=== PATIENT | male | born 1970 | race Caucasian/White ===

== ENCOUNTER 2023-08-18 09:57 | Outpatient (AMB) | payer OTHER, SELFPAY ==
--- NOTE | 2023-08-18 10:10 | MHC.PC.OV ---
Vital Signs 08/18/23 10:13 Height 6 ft Weight 175 lb BMI 23.7 BP 132/69 Blood Pressure Location Rt brachial Position Sitting Respiration 13 Pulse 70 Pulse Source Pulse Oximeter Temp 97.7 F Temp Source Temporal Artery Scan Pulse Oximetry (%) 95 Oxygen Delivery Method Room Air Intake Visit Reasons: est care /[facility] dscharge Intake Note: Patient is here to establish care with the practice. Patient is accompanied by his friend/caregiver Roberta. Yeager reports patient was in the hospital from 07/10/23-08/02/23 for pulmonary edema, viral cardiomyopathy, and type 2 insulin dependant diabetes. Patient states he has a paralyzed vocal cord. Community Leader Required: No Accompanied by: Friend Allergies naproxen Allergy (Severe, Verified 08/18/23 11:17) Hives Medication List - Last Reconciled 08/18/23 by Lizeth Sainz, ELDERLY SITTER- ammonium lactate 12% 1 appl topical BID aspirin 81 mg PO DAILY carvedilol 12.5 mg PO DAILY famotidine (Pepcid) 20 mg PO BEDTIME hydralazine 25 mg PO TID insulin glargine (Lantus Solostar U-100 Insulin) 14 units (0.14 mL) subcut QPM insulin lispro Before meal times administer according to this scale based on your blood glucose. Glucose 70-150: 0 unit. 151-200: 2 units. 201-250: 4 units. 251-300: 6 units. 301-350: 8 units. 351-400: 10 units. >400: 12 units and call doctor. isosorbide mononitrate ER 30 mg PO DAILY lancets (FreeStyle Lancets) As directed pen needle, diabetic (BD Ultra-Fine Mini Pen Needle) As directed rosuvastatin 10 mg PO DAILY torsemide 20 mg PO DAILY Tobacco use date assessed: 08/18/23 HPI HPI Comments History of Present Illness Details 53-year-old male with MDD, SMITH, CHF, pneumothorax status post chest tube with lung collapse, vocal cord paralysis, PVD with ulceration bilateral lower extremities, diabetes type 2 with complication, peripheral nueropathy Here today for hospital discharge follow up. He was found to have combined systolic and diastolic heart failure. He was started on torsemide daily, hydralazine 3 times per day, Imdur & Coreg. Unfortunately he is a new patient to this practice. I do not have any records on him to include hospital discharge paperwork. These records were requested several times from S[facility] not received. The information that I am using today for this visit is provided by the patient on his discharge summary. Admitted - 08/02/23. Discharge home with visiting nurse services. However the visiting nurse services did not start as they do not accept his insurance. He needs a new referral placed for fci to help manage his new chronic conditions, to provide education, med management and wound care. The discharge paperwork that he presents to me today recommends a follow up with ENT for the vocal cord paralysis. Referral was placed today. He also needs a referral placed to Cardiology. His caregiver who was present with him today reports that he has an appointment with [facility] some time during the week of 09/05/2023. Patient is not weighing himself daily. He is Watching what he eats & monitoring his salt intake. He is complaining of a pocket of gas that occurs from time to time. He is treating this with Gas-X. He did have constipation while in the hospital however he reports that this is resolved. Wants something for PN pain. PFSH Medical History (Updated 08/18/23 @ 16:27 by PANCHO Tapia) Pneumothorax Surgical History (Updated 08/18/23 @ 10:32 by Palma Gustafson [facility]) [place] teeth extracted Social History (Updated 08/18/23 @ 10:42 by Palma Gustafson CMA) Household Members: Friend(s) Housing: House Are you a primary health careers instructor to a significant other at home: No Do you presently have visiting nurse or other home services: No 75 years or older and lives alone: No Alcohol intake: never Patient Tobacco Use Status: Never used Tobacco e-Cigarette/Vaping Use: Never Used service: No Current occupational status: unemployed Current occupational exposures/hazards: No Gender identity: Male Cognitive needs: No Hearing needs: No Vision needs: Yes Questionnaire PHQ-9 Over the last 2 weeks, how often have you been bothered by any of the following problems? 1. Little interest or pleasure in doing things: more than half the days 2. Feeling down, depressed, or hopeless: more than half the days 3. Trouble falling or staying asleep, or sleeping too much: nearly every day 4. Feeling tired or having little energy: nearly every day 5. Poor appetite or overeating: not at all 6. Feeling bad about yourself - or that you are a failure or have let yourself or your family down: several days 7. Trouble concentrating on things, such as reading the newspaper or watching television: not at all 8. Moving or speaking so slowly that other people could have noticed. Or the opposite - being so fidgety or restless that you have been moving around a lot more than usual: not at all 9. Thoughts that you would be better off or of hurting yourself in some way: not at all Total score: 11 Depression Screening Interpretation: Negative Depression Screening Done: Yes 34991 - PHQ-9 Billing: Yes Source: Developed by Drs. Herve Villagomez, Jillian Camargo, Geo Koroma and colleagues, with an educational nicole from [employer]. Thrive Questionnaire Date Thrive assessed: 08/18/23 I am a: Patient What is your living situation today?: I have a steady place to live Within the past 12 months, did the food you bought not last and you didn't have the money to get more?: Never true Within the past 12 months, did you worry whether your food would run out before you got money to buy more?: Never true Do you have trouble paying for medicines?: Yes Do you have trouble getting transportation to medical appointments?: No Do you have trouble paying your heating and electricity bill?: No Do you have trouble taking care of your child, family member or friend?: No Do you have trouble with day-to-day activities such as bathing, preparing meals, shopping, managing finances, etc.?: Yes Are you currently unemployed and looking for a job?: Yes Are you interested in more education?: No Please select the resources that you would like help with: Food Currently or been in a relationship where the following occur: no concerns reported THRIVE Score: 0 AUDIT C Alcohol Use Questionnaire (AUDIT-C) 1. How often do you have a drink containing alcohol?: Never 3. How often do you have six or more drinks on one occasion?: Never Total Score: 0 Score Reviewed/Action Taken: Yes SMITH-7 AMB Questionnaire SMITH-7 Date SMITH - 7 assessed: 08/18/23 Feeling nervous, anxious, or on edge: 2 = More than half the days Not being able to stop or control worryin = More than half the days Worrying too much about different things: 2 = More than half the days Trouble relaxin = Nearly every day Being so restless that it is hard to sit still: 1 = Several days Becoming easily annoyed or irritable: 1 = Several days Feeling afraid as if something awful might happen: 1 = Several days Total SMITH-7 score (0-4 normal; 5-9 mild; 10-14 moderate; 15-21 severe): 12 Source: Developed by Drs. Herve Villagomez, Jillian Camargo, Geo Koroma and colleagues, with an educational nicole from [employer]. SMITH-7 Assessment Billing SMITH-7 Assessment Tool: SMITH-7 Assessment 19827 Review of Systems Const All systems reviewed & are unremarkable except as noted in HPI and below Physical exam (Primary Care) Vital Signs: Last Vital Signs Temp 97.7 F 08/18/23 10:13 Pulse 70 08/18/23 10:13 Resp 13 08/18/23 10:13 BP 132/69 08/18/23 10:13 Pulse Ox 95 08/18/23 10:13 Oxygen Delivery Method Room Air 08/18/23 10:13 BMI result Body Mass Index 23.7 Tobacco/Smoking Status: Tobacco use Status Tobacco use date assessed 08/18/23 08/18/23 10:34 Patient Tobacco Use Status Never used Tobacco 08/18/23 10:42 e-Cigarette/Vaping Use Never Used 08/18/23 10:42 PHQ-9: PHQ-9 Score PHQ-9: Total score 11 08/18/23 15:29 Depression Screening Interpretation: Negative Thrive Assessment: Date of Thrive Assessment Date Thrive assessed 08/18/23 08/18/23 10:41 Currently or been in a relationship where the following occur: no concerns reported Advance Care Planning discussion: Exists, not on file Date of discussion: 08/18/23 Who was present: pt and sig other Forms completed: Health Care Proxy and MOLST Time spent: 1-15 minutes, not on file Actual minutes spent: 5 Const Other: awake alert, chronically ill appearing speaking in whispered voice RRR, 2/6 systolic murmur LS dim BLL otherwise clear throughout BLE hairless, unable to palpate pedal pulses, chronic vascular discoloration, dry flaking crusted skin, worse between toes on left. Open vascular ulcer, limited to skin breakdown on top of bilat feet w/o signs of infection Assessment and Plan Assessment & Plan (1) Hospital discharge follow-up: Comment: incredibly complex patient, with limited medical records I addressed what info I had available to me today to include needed referrals, med refills and recheck of labs I would like for him to return to the office next week for a close f/u. I have asked his HCP to get me the d/c summary from the hospital as our attempts have not been successful. Code(s): Z09 - Encounter for follow-up examination after completed treatment for conditions other than malignant neoplasm (2) Paralyzed vocal cords: Comment: referred to ENT Code(s): J38.00 - Paralysis of vocal cords and larynx, unspecified (3) CHF (congestive heart failure): Comment: euvolemic on exam on BB, Isosorbide & torsemide Referred to Cards. Appt August 2023 Weigh self daily, report gain of 3lbs/day or 5lb/week Limit Na+ intake Code(s): I50.9 - Heart failure, unspecified Qualifiers: Heart failure type: combined systolic and diastolic Heart failure chronicity: chronic Qualified Code(s): I50.42 - Chronic combined systolic (congestive) and diastolic (congestive) heart failure (4) Diabetes mellitus type 2 with complications: Comment: Does not want Endo referral at this time Will check labs, to include HgA1c and bring him back for f/u At this time, advised to cont ADA diet, ISS and Lantus. Code(s): E11.8 - Type 2 diabetes mellitus with unspecified complications (5) Encounter for screening involving social determinants of health (SDoH): Comment: + thrive, refer to NN for asst. Code(s): Z13.9 - Encounter for screening, unspecified (6) Secondary hyperaldosteronism: Comment: excessive activation of the ezlqo-ggebhcincnr-fdxablwibto system (RAAS), related to CHF On torsemide for volume control Code(s): E26.1 - Secondary hyperaldosteronism (7) Atherosclerotic PVD with ulceration: Comment: vna referral placed to help w/ dressings Start Lachydrin, apply to intact skin twice per day Cont statin and ASA Monitor skin integrity FF'd by Cards Code(s): I70.209 - Unspecified atherosclerosis of [place] arteries of extremities, unspecified extremity; L98.499 - Non-pressure chronic ulcer of skin of other sites with unspecified severity Qualifiers: Peripheral atherosclerosis location: lower extremity Peripheral atherosclerosis artery type: [place] artery Laterality: bilateral Lower extremity ulceration location: midfoot Qualified Code(s): I70.234 - Atherosclerosis of [place] arteries of right leg with ulceration of heel and midfoot; I70.244 - Atherosclerosis of [place] arteries of left leg with ulceration of heel and midfoot (8) Lipoma of torso: Comment: made aware this was a low priority item at this time. He may benefit from gen Surg referral in the future however this is not a pressing issue at current time. Code(s): D17.1 - Benign lipomatous neoplasm of skin and subcutaneous tissue of trunk (9) Diabetic peripheral neuropathy: Comment: START Gabapentin 100mg po BID, this was renally dosed based on CrCl 42 Code(s): E11.42 - Type 2 diabetes mellitus with diabetic polyneuropathy (10) GERD without esophagitis: Comment: trial pepcid at HS; ok to cont prn Gas-X If no effect, please let PCP know Code(s): K21.9 - Gastro-esophageal reflux disease without esophagitis Orders: Orders Comprehensive Met. Panel Today E11.8 - Type 2 diabetes mellitus with unspecified complications LDL Cholesterol Direct Today E11.8 - Type 2 diabetes mellitus with unspecified complications, I50.9 - Heart failure, unspecified Hemoglobin A1c Today E11.8 - Type 2 diabetes mellitus with unspecified complications Microalbumin, Random (w Creat) Today E11.8 - Type 2 diabetes mellitus with unspecified complications Complete Blood Count no Diff Today E11.8 - Type 2 diabetes mellitus with unspecified complications Vitamin B12 and Folate Today E11.8 - Type 2 diabetes mellitus with unspecified complications IRON PROFILE Today I50.9 - Heart failure, unspecified, S81.809A - Unspecified open wound, unspecified lower leg, initial encounter Referrals Ear/Nose/Throat Referral J38.00 - Paralysis of vocal cords and larynx, unspecified Cardiology Referral I50.9 - Heart failure, unspecified [facility] Nurse Association/Hospice Referral S81.809A - Unspecified open wound, unspecified lower leg, initial encounter Nurse Navigator Referral Z13.9 - Encounter for screening, unspecified Medications: New famotidine (Pepcid) 20 mg PO BEDTIME 90 tabs 0RF ammonium lactate 12% apply to bilat lower ext BID, avoid open areas 1 appl topical BID 400 grams 5RF insulin glargine (Lantus Solostar U-100 Insulin) 14 units (0.14 mL) subcut QPM 90 days 12.6 mL 0RF E11.8 - Type 2 diabetes mellitus with unspecified complications gabapentin 100 mg PO BID 60 caps 0RF Coding Level of Care Code New Pt Level 5 (04485) Diagnoses Hospital discharge follow-up Z09 Paralyzed vocal cords J38.00 Chronic combined systolic and diastolic congestive heart failure I50.42 Heart failure type: combined systolic and diastolic Heart failure chronicity: chronic Diabetes mellitus type 2 with complications E11.8 Encounter for screening involving social determinants of health (SDoH) Z13.9 Secondary hyperaldosteronism E26.1 Atherosclerosis of [place] artery of both lower extremities with bilateral ulceration of midfeet I70.234; I70.244 Peripheral atherosclerosis location: lower extremity Peripheral atherosclerosis artery type: [place] artery Laterality: bilateral Lower extremity ulceration location: midfoot Lipoma of torso D17.1 Diabetic peripheral neuropathy E11.42 GERD without esophagitis K21.9 Additional Codes SMITH-7 Assessment Billing - SMITH-7 Assessment Tool: SMITH-7 Assessment 69065 ([id number]) Vital Signs *Quality* - Advance Care Planning discussion: Exists, not on file ([id number]) Vital Signs *Quality* - Time spent: 1-15 minutes, not on file ([id number])
[2023-08-18 10:13] VITALS: BP 132/69; PULSE 70; RESP 13; TEMP 36.5; O2SAT 95; BMI 23.7
== END 2023-08-18 12:20 | disposition home or self-care (01) ==
PROVIDERS: Visit Provider Nurse Practitioner Family
DX: I50.42 Chronic combined systolic (congestive) and diastolic (congestive) heart failure (principal); E11.8 Type 2 diabetes mellitus with unspecified complications; E26.1 Secondary hyperaldosteronism; I70.234 Atherosclerosis of native arteries of right leg with ulceration of heel and midfoot; I70.244 Atherosclerosis of native arteries of left leg with ulceration of heel and midfoot; E11.42 Type 2 diabetes mellitus with diabetic polyneuropathy; Z09 Encounter for follow-up examination after completed treatment for conditions other than malignant neoplasm; Z00.00 Encounter for general adult medical examination without abnormal findings; J38.00 Paralysis of vocal cords and larynx, unspecified; D17.1 Benign lipomatous neoplasm of skin and subcutaneous tissue of trunk; K21.9 Gastro-esophageal reflux disease without esophagitis
CPT/HCPCS: 1124F; 99205

== ENCOUNTER 2023-08-18 11:34 | Outpatient (REF) | payer MEDICAID, SELFPAY ==
[2023-08-18 14:51] LABS: Hematocrit 29.4 % (42.0-52.0); Hemoglobin 9.3 g/dl (14.0-18.0); Mean Corpuscular HGB Conc 31.6 g/dl (31.0-36.0); Mean Corpuscular Hemoglobin 23.5 pg (27.0-33.0); Mean Corpuscular Volume 74.4 fL (80.0-98.0); Platelet Count 273 X10*3/uL (160-400); Red Blood Count 3.95 X10*6/uL (4.60-5.80); Red Cell Distribution Width 16.3 % (11.0-16.0); White Blood Count 6.4 X10*3/uL (4.8-10.8)
[2023-08-18 15:39] LABS: Estimated Average Glucose 229 mg/dL; Hemoglobin A1c % 9.6 % (<6.0)
[2023-08-18 15:41] LABS: Alanine Aminotransferase 27 U/L (0-40); Alkaline Phosphatase 83 U/L (39-117); Anion Gap 10 (12-20); Aspartate Amino Transferase 22 U/L (5-37); Bilirubin Total 0.3 mg/dL (0.0-1.0); Blood Urea Nitrogen 67 mg/dL (9-16); Carbon Dioxide 23 mmol/L (22-29); Chloride 104 mmol/L (96-108); Estimated Glomerular Filt Rate 32; Glucose Random 215 mg/dL (60-115); Potassium 4.4 mmol/L (3.3-5.1); Sodium 133 mmol/L (135-145); Total Protein 6.7 g/dL (6.5-8.0)
[2023-08-18 16:12] LABS: Vitamin B12 545 pg/mL (200-900)
[2023-08-18 17:38] LABS: Creatinine Urine 49.17 mg/dL; Microalbum/Creatinine Ratio Ur 4067.5 ug/mg cr (<30); Microalbumin Urine > 2000.0 mg/L
[2023-08-20 06:24] LABS: LDL Cholesterol Direct 68 mg/dL (<100)
== END 2023-08-18 11:35 | disposition home or self-care (01) ==
LOC: HO.WFDLDS 11:34
PROVIDERS: Visit Provider Nurse Practitioner Family
DX: E11.8 Type 2 diabetes mellitus with unspecified complications (principal); I50.9 Heart failure, unspecified
CPT/HCPCS: 36415; 80053; 82043; 82570; 82607; 82746; 83036; 83721; 85027

== ENCOUNTER 2023-08-25 13:39 | Outpatient (AMB) | payer OTHER, SELFPAY ==
[2023-08-25 13:44] VITALS: BP 132/60; PULSE 72; O2SAT 98; BMI 23.6
--- NOTE | 2023-08-25 13:44 | MHC.PC.OV ---
Vital Signs 08/25/23 13:44 Height 6 ft Weight 174 lb BMI 23.6 BP 132/60 Blood Pressure Location Lt brachial Position Sitting Pulse 72 Pulse Source Pulse Oximeter Pulse Oximetry (%) 98 Oxygen Delivery Method Room Air Intake Visit Reasons: 1 week follow up CHF/uncontrolled DM/HTN Intake Note: Patient is here to follow up on CHF and DM, and HTN. Allergies naproxen Allergy (Severe, Verified 08/25/23 13:49) Hives Medication List - Last Reconciled 08/25/23 by Shmuel Youssef MD ammonium lactate 12% 1 appl topical BID aspirin 81 mg PO DAILY carvedilol 12.5 mg PO DAILY famotidine (Pepcid) 20 mg PO BEDTIME gabapentin 100 mg PO BID hydralazine 25 mg PO TID insulin glargine (Lantus Solostar U-100 Insulin) 14 units (0.14 mL) subcut QPM 90 days insulin lispro 1 sliding scale dose subcut QIDACHS isosorbide mononitrate ER 30 mg PO DAILY lancets (FreeStyle Lancets) As directed pen needle, diabetic (BD Ultra-Fine Mini Pen Needle) As directed rosuvastatin 10 mg PO DAILY torsemide 20 mg PO DAILY Tobacco use date assessed: 08/18/23 Dental Screening Dental Screen Date: 08/25/23 HPI 1 week follow up CHF/uncontrolled DM/HTN HPI Details History of CHF with systolic and diastolic dysfunction, diabetes with neuropathy, atherosclerotic peripheral vascular disease, chronic kidney disease, , paralyzed vocal cords, recent hospitalization for CHF, concomitant pneumothorax and chest tube while admitted. Had been seen by [facility] and no records at that time. Referred to Cardiology and ENT for CHF and vocal cord paralysis respectively. HGB 8.7 08/02/23 then 9.3 08/18/23 Cr 1.9 then 2.19 A1C 08/18/23 was 9.6% They report improving morning blood sugars - A1c had previously been at around 11% in the hospital. [facility] Medical History (Updated 08/25/23 @ 14:41 by Jabari Siddiqui) Gas bloat syndrome Herniated disc, cervical Back disorder Arthritis Cardiomyopathy High blood pressure Edema Pneumothorax Surgical History (Updated 08/18/23 @ 10:32 by Palma Gustafson [facility]) [place] teeth extracted Family History (Updated 08/20/23 @ 09:41 [address] Chanelle Hawkins [facility]) Mother Cancer Father Cancer Social History (Updated 08/20/23 @ 09:59 by Palma Gustafson [facility]) Household Members: Friend(s) Housing: House Are you a primary child care provider to a significant other at home: No Do you presently have visiting nurse or other home services: No 75 years or older and lives alone: No Alcohol intake: never Patient Tobacco Use Status: Never used Tobacco e-Cigarette/Vaping Use: Never Used Use of substances other than those prescribed or required for medical reasons: No Have you been hit, kicked, punched, or otherwise hurt by someone within the past year? If so, by whom?: No Do you feel safe in your current relationship?: No Current Relationship Is there a partner from a previous relationship who is making you feel unsafe now?: No Are you made to feel afraid or neglected: No service: No Current occupational status: unemployed Current occupational exposures/hazards: No Gender identity: Male Cognitive needs: No Hearing needs: No Vision needs: Yes Questionnaire Thrive Questionnaire Date Thrive assessed: 08/18/23 SMITH-7 AMB Questionnaire SMITH-7 Date SMITH - 7 assessed: 08/18/23 Source: Developed by Drs. Herve Villagomez, Jillian Camargo, Geo Koroma and colleagues, with an educational nicole from [employer]. Review of Systems Const Denies chills, Denies fatigue, Denies fever(s), Denies headache(s) and Denies weakness ENT Denies dizziness and Denies headache(s) Card Denies dyspnea Resp Denies cough, Denies dyspnea, Denies wheezing and Denies other (shortness of breath) Musc Denies numbness and Denies tingling Neuro Denies dizziness, Denies headache(s), Denies numbness, Denies tingling and Denies weakness Psych Denies anxiety and Denies depression Endo Denies fatigue Aller/Immun Denies wheezing Physical exam (Primary Care) Vital Signs: Last Vital Signs Pulse 72 08/25/23 13:44 BP 132/60 08/25/23 13:44 Pulse Ox 98 08/25/23 13:44 Oxygen Delivery Method Room Air 08/25/23 13:44 BMI result Body Mass Index 23.6 Tobacco/Smoking Status: Tobacco use Status Tobacco use date assessed 08/18/23 08/25/23 13:45 Patient Tobacco Use Status Never used Tobacco 08/25/23 13:45 e-Cigarette/Vaping Use Never Used 08/25/23 13:45 Thrive Assessment: Date of Thrive Assessment Date Thrive assessed 08/18/23 08/25/23 13:45 Const General: well developed; No acute distress Nutritional Appearance: well nourished Orientation/consciousness: patient oriented x3 HENMT Head: Yes normocephalic and Yes atraumatic Eyes General: appearance normal, both eyes and all related structures Pupils: Equal, round and reactive pupils present EOM: EOMs intact bilaterally Resp Effort & Inspection: normal respiratory effort Auscultation: clear to auscultation bilaterally Cardio Rate: regular rate Rhythm: regular rhythm Heart sounds: S1 normal heart sound present, S2 normal heart sound present, no gallops, no murmurs and no rubs Neuro General: patient oriented x3 and gait normal Cranial nerves: Yes Equal, round and reactive pupils present Psych Affect: normal affect Assessment and Plan Assessment & Plan (1) CHF (congestive heart failure): Code(s): I50.9 - Heart failure, unspecified Qualifiers: Heart failure chronicity: chronic Heart failure type: combined systolic and diastolic Qualified Code(s): I50.42 - Chronic combined systolic (congestive) and diastolic (congestive) heart failure Plan: Congestive?heart?failure?secondary?to?cardiomyopathy;?possibly?viral Continue?isosorbide,?carvedilol,?hydralazine?and?torsemide Maintain fluid?restriction?of?2000?mL Avoid?salt/sodium Control?blood?sugars Elevate?legs Patient?has?an?appointment?with?cardiology.??Follow-up?with?Cardiology?as?recommended Call?or?return?to?office?if?greater?than?3?lb?weight?gain?per?day?or?5?lb?weight?gain?per?week?or?for?increasing?shortness?of?breath?or?lower?extremity?edema. (2) Diabetes mellitus type 2 with complications: Code(s): E11.8 - Type 2 diabetes mellitus with unspecified complications Plan: A1c?is?improving?was?greater?than?11?at?the?hospital?and?now?9.6%?with?improving?morning?blood?sugars?in?the?low?100s?and?sometimes?80s?and?90s. He?will?increase?his?Lantus?from?14?units?daily?to?16?units?daily Continue?sliding?scale. May?use?1-2?unit?correction?factor?with?high?carb?breakfast.??Otherwise?continue?sliding?scale?as?prescribed Continue?working?at?diabetic?diet (3) Paralyzed vocal cords: Comment: referred to ENT Code(s): J38.00 - Paralysis of vocal cords and larynx, unspecified Plan: Unclear?cause?and?precedes?his?hospitalization Has?an?appointment?with?ENT (4) High blood pressure: Code(s): I10 - Essential (primary) hypertension Plan: Blood?pressure?is?fairly?well?controlled.??Goal?is?less?than?130/80 Continue?current?medications (5) CKD (chronic kidney disease) stage 3, GFR 30-59 ml/min: Code(s): N18.30 - Chronic kidney disease, stage 3 unspecified Plan: Likely?acute?on?chronic?kidney?disease Rechecking?renal?function?again?and?if?creatinine?level?continues?to?rise,?will?refer?to?Nephrology. (6) Gas bloat syndrome: Code(s): K92.89 - Other specified diseases of the digestive system Plan: He?can?use?simethicone?or?Gas-X Hydrate?well Moderate?intake?of?offending?foods?such?as?dairy (7) Lower extremity edema: Code(s): R60.0 - Localized edema Plan: Elevate?legs Avoid?salt/sodium Continue?torsemide Will?follow Orders: Orders Basic Metabolic Panel Today N18.30 - Chronic kidney disease, stage 3 unspecified, Z00.00 - Encounter for general adult medical examination without abnormal findings B Type Natriuretic Peptide Today I50.42 - Chronic combined systolic (congestive) and diastolic (congestive) heart failure, I50.9 - Heart failure, unspecified Complete Blood Count Auto Diff Today D64.9 - Anemia, unspecified, Z00.00 - Encounter for general adult medical examination without abnormal findings Referrals Ophthalmology Referral E11.8 - Type 2 diabetes mellitus with unspecified complications Vascular Surgery Referral I70.234 - Atherosclerosis of [place] arteries of right leg with ulceration of heel and midfoot, I70.244 - Atherosclerosis of [place] arteries of left leg with ulceration of heel and midfoot, R60.0 - Localized edema Medications: New lidocaine 4% 1 appl topical TID 30 days PRN 113 grams 1RF pain E11.42 - Type 2 diabetes mellitus with diabetic polyneuropathy Coding Level of Care Code New Pt Level 4 (90818) Diagnoses Chronic combined systolic and diastolic congestive heart failure I50.42 Heart failure chronicity: chronic Heart failure type: combined systolic and diastolic Diabetes mellitus type 2 with complications E11.8 Paralyzed vocal cords J38.00 High blood pressure I10 CKD (chronic kidney disease) stage 3, GFR 30-59 ml/min N18.30 Gas bloat syndrome K92.89 Lower extremity edema R60.0
== END 2023-08-25 14:56 | disposition home or self-care (01) ==
PROVIDERS: Visit Provider Family Medicine
DX: I50.42 Chronic combined systolic (congestive) and diastolic (congestive) heart failure (principal); E11.22 Type 2 diabetes mellitus with diabetic chronic kidney disease; N18.30 Chronic kidney disease, stage 3 unspecified; J38.00 Paralysis of vocal cords and larynx, unspecified; I10 Essential (primary) hypertension; K92.89 Other specified diseases of the digestive system; R60.0 Localized edema
CPT/HCPCS: 99214

== ENCOUNTER 2023-08-30 14:27 | Outpatient (REF) | payer OTHER, SELFPAY ==
[2023-08-30 14:51] LABS: MANUAL DIFF FLAG NO
[2023-08-30 15:18] LABS: Basophils Percent Auto 0.7 % (0-2); Eosinophils Absolute Auto 0.4 X10*3/uL (0.0-0.4); Eosinophils Percent Auto 5.9 % (0-4); Hematocrit 26.8 % (42.0-52.0); Hemoglobin 8.7 g/dl (14.0-18.0); Imm Gran Abs Auto 0.02 X10*3/uL (0.00-0.03); Imm Gran Pct Auto 0.3 % (0.0-0.4); Lymphocytes Absolute Auto 0.8 X10*3/uL (1.2-4.9); Lymphocytes Percent Auto 13.3 % (20-40); Mean Corpuscular HGB Conc 32.5 g/dl (31.0-36.0); Mean Corpuscular Volume 73.8 fL (80.0-98.0); Mean Platelet Volume 9.4 fL (9.4-12.4); Monocytes Absolute Auto 0.5 X10*3/uL (0.1-1.2); Neutrophils Absolute Auto 4.2 x10*3/uL (2.0-8.3); Neutrophils Percent Auto 70.8 % (45-73); Platelet Count 265 X10*3/uL (160-400); Red Blood Count 3.63 X10*6/uL (4.60-5.80); Red Cell Distribution Width 16.4 % (11.0-16.0); White Blood Count 5.9 X10*3/uL (4.8-10.8)
[2023-08-30 15:40] LABS: B Type Natriuretic Peptide 1503 pg/mL (<100)
[2023-08-30 16:19] LABS: Anion Gap 14 (12-20); Blood Urea Nitrogen 55 mg/dL (9-16); Calcium 9.3 mg/dL (8.4-10.2); Carbon Dioxide 22 mmol/L (22-29); Chloride 108 mmol/L (96-108); Estimated Glomerular Filt Rate 32; Glucose Random 120 mg/dL (60-115); Iron 41 mcg/dL (45-160); Percent Iron Saturation 19 % (15-50); Potassium 4.8 mmol/L (3.3-5.1); Sodium 139 mmol/L (135-145); Total Iron Binding Capacity 217 mcg/dL (228-428); Unsaturated Iron Binding 176 ug/dL
== END 2023-08-30 14:28 | disposition home or self-care (01) ==
LOC: HO.LAB 14:27
PROVIDERS: PCP Family Medicine; Visit Provider Family Medicine
DX: Z00.00 Encounter for general adult medical examination without abnormal findings (principal); N18.30 Chronic kidney disease, stage 3 unspecified; I50.42 Chronic combined systolic (congestive) and diastolic (congestive) heart failure; D64.9 Anemia, unspecified; S81.809A Unspecified open wound, unspecified lower leg, initial encounter
CPT/HCPCS: 36415; 80048; 83540; 83880; 85025

== ENCOUNTER 2023-09-11 09:56 | Outpatient (REF) | payer OTHER, SELFPAY ==
[2023-09-11 10:08] LABS: MANUAL DIFF FLAG NO
[2023-09-11 10:25] LABS: Basophils Percent Auto 0.5 % (0-2); Eosinophils Absolute Auto 0.3 X10*3/uL (0.0-0.4); Eosinophils Percent Auto 4.9 % (0-4); Hematocrit 25.5 % (42.0-52.0); Hemoglobin 8.1 g/dl (14.0-18.0); Imm Gran Abs Auto 0.01 X10*3/uL (0.00-0.03); Imm Gran Pct Auto 0.2 % (0.0-0.4); Lymphocytes Absolute Auto 0.9 X10*3/uL (1.2-4.9); Lymphocytes Percent Auto 16.1 % (20-40); Mean Corpuscular HGB Conc 31.8 g/dl (31.0-36.0); Mean Corpuscular Hemoglobin 23.8 pg (27.0-33.0); Mean Platelet Volume 9.8 fL (9.4-12.4); Monocytes Absolute Auto 0.6 X10*3/uL (0.1-1.2); Monocytes Percent Auto 9.6 % (2-11); Neutrophils Absolute Auto 3.9 x10*3/uL (2.0-8.3); Neutrophils Percent Auto 68.7 % (45-73); Platelet Count 236 X10*3/uL (160-400); Red Cell Distribution Width 16.7 % (11.0-16.0); White Blood Count 5.7 X10*3/uL (4.8-10.8)
[2023-09-11 11:06] LABS: B Type Natriuretic Peptide 1204 pg/mL (<100)
[2023-09-11 11:11] LABS: Alanine Aminotransferase 18 U/L (0-40); Albumin Level 3.1 g/dL (3.5-5.0); Alkaline Phosphatase 65 U/L (39-117); Anion Gap 13 (12-20); Aspartate Amino Transferase 17 U/L (5-37); Bilirubin Total 0.3 mg/dL (0.0-1.0); Blood Urea Nitrogen 51 mg/dL (9-16); Calcium 8.8 mg/dL (8.4-10.2); Carbon Dioxide 22 mmol/L (22-29); Chloride 105 mmol/L (96-108); Estimated Glomerular Filt Rate 30; Glucose Random 88 mg/dL (60-115); Sodium 136 mmol/L (135-145); Total Protein 6.7 g/dL (6.5-8.0)
== END 2023-09-11 09:57 | disposition home or self-care (01) ==
LOC: HO.LAB 09:56
PROVIDERS: PCP Family Medicine; Visit Provider Family Medicine
DX: Z00.00 Encounter for general adult medical examination without abnormal findings (principal); D64.9 Anemia, unspecified; I50.9 Heart failure, unspecified; N18.30 Chronic kidney disease, stage 3 unspecified
CPT/HCPCS: 36415; 80053; 83880; 85025

== ENCOUNTER 2023-09-15 16:00 | Emergency (ER) | payer OTHER, SELFPAY ==
[2023-09-15 16:22] VITALS: BP 164/88; PULSE 79; RESP 16; TEMP 36.4; O2SAT 98; BMI 24.4
--- NOTE | 2023-09-15 16:27 | ECG_ITS ---
Test Reason : ABNORMAL LABS Blood Pressure : / mmHG Vent. Rate : 077 BPM Atrial Rate : 077 BPM P-R Int : 182 ms QRS Dur : 092 ms QT Int : 410 ms P-R-T Axes : 041 -06 032 degrees QTc Int : 463 ms Normal sinus rhythm Possible Left atrial enlargement Minimal voltage criteria for LVH, may be normal variant ( Román product ) Borderline ECG No previous ECGs available Referred By: Lloyd Raines Electronically Signed By:JOVANNA BRUCE MD
--- NOTE | 2023-09-15 16:27 | ED_ITS ---
HPI - General Adult General Chief complaint: Recheck/Abnormal Lab/Rx Stated complaint: sent by pcp - low blood count Time Seen by Provider: 09/15/23 21:48 History of Present Illness HPI narrative: History of CHF with systolic and diastolic dysfunction, diabetes with neuropathy, atherosclerotic peripheral vascular disease, chronic kidney disease, , paralyzed vocal cords, recent hospitalization for CHF, concomitant pneumothorax and chest tube while admitted. Sent by PCP for anemia patient is taking iron tablets for last 10 days hemoglobin was 7.9 patient feel weak no significant shortness of breath denied any black stool patient's hemoglobin was 9.3 on 08/17 Related Data Home Medications ?Medication ?Instructions ?Recorded ?Confirmed aspirin 81 mg tablet,delayed 81 mg PO DAILY 08/18/23 08/25/23 release carvedilol 6.25 mg tablet 12.5 mg PO DAILY 08/18/23 08/25/23 hydralazine 25 mg tablet 25 mg PO TID 08/18/23 08/25/23 isosorbide mononitrate 30 mg 30 mg PO DAILY 08/18/23 08/25/23 tablet,extended release 24 hr lancets 28 gauge (FreeStyle #100 ea 08/18/23 08/25/23 Lancets) pen needle, diabetic 31 gauge x #1,200 ea 08/18/23 08/25/23/16 (BD Ultra-Fine Mini Pen Needle) rosuvastatin 10 mg tablet 10 mg PO DAILY 08/18/23 08/25/23 torsemide 20 mg tablet 20 mg PO DAILY 08/18/23 08/25/23 Previous Rx's ?Medication ?Instructions ?Recorded ammonium lactate 12 % lotion 1 appl topical BID #400 grams 08/18/23 famotidine 20 mg tablet (Pepcid) 20 mg PO BEDTIME #90 tabs 08/18/23 gabapentin 100 mg capsule 100 mg PO BID #60 caps 08/18/23 insulin glargine 100 unit/mL (3 14 unit (0.14 mL) subcut QPM 90 08/20/23 mL) subcutaneous pen (Lantus days #15 mL Solostar U-100 Insulin) insulin lispro 100 unit/mL 1 sliding scale dose subcut 08/20/23 subcutaneous pen QIDACHS #15 mL lidocaine 4 % topical gel 1 appl topical TID PRN pain 30 08/25/23 days #113 grams ferrous sulfate 325 mg (65 mg 325 mg PO DAILY #30 tabs 09/02/23 iron) tablet Allergies Allergy/AdvReac Type Severity Reaction Status Date / Time naproxen Allergy Severe Hives Verified 09/15/23 16:26 Review of Systems 2 Review of Systems: Yes all other systems are reviewed and are negative [facility] Past Medical History Medical History Gas bloat syndrome Herniated disc, cervical Back disorder Arthritis Cardiomyopathy High blood pressure Edema Pneumothorax Surgical History [place] teeth extracted Family History Family History Mother Cancer Father Cancer Social History Social History Household Members: Friend(s) Housing: House Are you a primary career development manager to a significant other at home: No Do you presently have visiting nurse or other home services: No Alcohol intake: never Patient Tobacco Use Status: Never used Tobacco e-Cigarette/Vaping Use: Never Used Advance Directives: No Advance Directives Information Provided: No Do you have a plan to hurt others: No Plan service: No Current occupational status: unemployed Current occupational exposures/hazards: No Gender identity: Male Cognitive needs: No Hearing needs: No Vision needs: Yes Physical Exam ED Vital Signs: Vital Signs - 24 hr 09/15/23 16:22 09/15/23 20:58 09/15/23 23:11 Temperature 97.6 F 97.5 F 98.2 F Pulse Rate 79 85 84 Respiratory Rate 16 15 16 Blood Pressure 164/88 H 179/98 H 171/91 H Pulse Oximetry 98 98 98 Oxygen Delivery Method Room Air Room Air Room Air 09/15/23 23:53 09/16/23 00:10 09/16/23 02:19 Temperature 97.6 F 97.6 F 97.6 F Pulse Rate 83 83 78 Respiratory Rate 18 17 16 Blood Pressure 171/89 H 167/88 H 166/99 H Pulse Oximetry Oxygen Delivery Method 09/16/23 02:35 Temperature 97.6 F Pulse Rate 78 Respiratory Rate 16 Blood Pressure 166/99 H Pulse Oximetry 97 Oxygen Delivery Method Room Air BMI result Body Mass Index 24.4 Appearance: Alert. Oriented X3. No acute distress. Eyes: Pallor+ ENT: Pharynx normal. Oral Mucosa moist muffled voice Neck: Normal inspection. Neck supple. CVS: Normal heart rate and rhythm. Pulses normal. Respiratory: No respiratory distress. Equal air entry bilateral, no wheezing/rales/rhonchi Abdomen: Soft and nontender. Bowel sounds are present, no mass palpable, no CVA tenderness Rectal: Brown stool guaic -ve Skin: Skin warm and dry. Normal skin color. Normal skin turgor. Extremities: No lower extremity edema. No calf tenderness Neuro: Oriented X 3. No motor deficit. Course Course Course Narrative: SHORTY- 53-year-old male past medical history significant for heart failure, hypertension, anemia, chronic kidney disease, GERD, diabetes presents for evaluation of ?low blood counts. ? Patient reports that his primary doctor check his labs over week ago and his hemoglobin was low so he repeated it on Wednesday, 5 days ago and recommended the patient come to the ER for a blood transfusion. ? Patient's hemoglobin on 09/10/2023 was 8.1. Denies any black or bloody stool. Plan for labs and a type and screen Medications Administered Discontinued Medications Generic Name Dose Route Start Last Admin Trade Name Freq PRN Reason Stop Dose Admin Sodium Chloride 100 mls @ 100 mls/hr 09/15/23 22:17 09/15/23 23:45 Ns IV 09/15/23 23:16 100 mls/hr ONCE ONE Administration Oxycodone HCl 10 mg 09/15/23 23:44 09/16/23 00:21 Oxycodone Hcl Immed Release 5 Mg Tablet PO 09/15/23 23:45 10 mg ONCE ONE Administration Medical Decision Making Medical Decision Making [facility] Narrative: Patient with iron deficiency anemia on iron tablet noticed to have hemoglobin of 7.9 hematocrit 24.1 with history of cardiomyopathy was given 1 unit of PRBC advised to follow with PCP Differential Diagnosis Differential Diagnoses: The differential diagnosis associated with the presentation includes GI bleed/iron-deficiency anemia/anemia of chronic disease Lab Data [facility] Lab Attestation statement: I reviewed the patient's lab results. 09/15/23 17:09 09/15/23 17:09 Labs: Lab Results 05/22/24 05/22/24 05/23/24 Range/Units 17:09 23:34 00:11 WBC 5.2 (4.8-10.8) X10*3/uL RBC 3.23 L (4.60-5.80) X10*6/uL Hgb 7.9 L (14.0-18.0) g/dl Hct 24.1 L (42.0-52.0) % MCV 74.6 L (80.0-98.0) fL MCH 24.5 L (27.0-33.0) pg MCHC 32.8 (31.0-36.0) g/dl RDW 16.5 H (11.0-16.0) % Plt Count 266 (160-400) X10*3/uL MPV 9.6 (9.4-12.4) fL Immature Gran % (Auto) 0.2 (0.0-0.4) % Neut % (Auto) 71.0 (45-73) % Lymph % (Auto) 12.6 L (20-40) % [place] % (Auto) 7.8 (2-11) % Eos % (Auto) 7.6 H (0-4) % Baso % (Auto) 0.8 (0-2) % Lymph # (Auto) 0.7 L (1.2-4.9) X10*3/uL [place] # (Auto) 0.4 (0.1-1.2) X10*3/uL Eos # (Auto) 0.4 (0.0-0.4) X10*3/uL Baso # (Auto) 0.0 (0.0-0.2) X10*3/uL Abs Immat Gran (auto) 0.01 (0.00-0.03) X10*3/uL Absolute Neuts (auto) 3.7 (2.0-8.3) x10*3/uL Absolute Nucleated RBC 0.000 (0.0-0.012) X10*3/uL Nucleated RBC % (auto) 0.0 (0.0-0.2) /100WBC PT 12.0 (11.1-13.3) SEC INR 1.0 (0.9-1.1) Sodium 137 (135-145) mmol/L Potassium 4.6 (3.3-5.1) mmol/L Chloride 104 (96-108) mmol/L Carbon Dioxide 23 (22-29) mmol/L Anion Gap 15 (12-20) BUN 51 H (9-16) mg/dL Creatinine 2.09 H (0.5-1.4) mg/dL Estim Creat Clear Calc 44.3 Estimated GFR 33 POC Glucose 135 H (60-115) mg/dL Random Glucose 142 H (60-115) mg/dL Calcium 9.4 D (8.4-10.2) mg/dL Total Bilirubin 0.3 (0.0-1.0) mg/dL AST 22 (5-37) U/L ALT 23 (0-40) U/L Alkaline Phosphatase 68 (39-117) U/L Troponin I High Sens 34.3 (<3.5-35.0) ng/L Total Protein 6.9 (6.5-8.0) g/dL Albumin 3.3 L (3.5-5.0) g/dL Lipase 26 (8-78) U/L Stool Occult Blood NEGATIVE (NEGATIVE) Blood Type O Positive Antibody Screen NEGATIVE Crossmatch See Detail Discharge Plan Discharge Clinical Impression: Chronic iron deficiency anemia Patient Disposition: Home, Self-Care Instructions: Iron Deficiency Anemia (ED) Additional Instructions: Continue your iron tablets as prescribed by your PCP Recheck your blood in 1 week Follow with your PCP Prescriptions: No Action insulin glargine [Lantus Solostar U-100 Insulin] 100 unit/mL (3 mL) insulin pen 14 unit subcut QPM 90 Days Qty: 15 0RF insulin lispro 100 unit/mL insulin pen 1 sliding scale dose subcut QIDACHS Qty: 15 0RF Rx Instructions: Before meal times administer according to this scale based on your blood glucose. Glucose 70-150: 0 unit. 151-200: 2 units. 201-250: 4 units. 251-300: 6 units. 301-350: 8 units. 351-400: 10 units. >400: 12 units and call doctor. ferrous sulfate 325 mg (65 mg iron) tablet 325 mg PO DAILY Qty: 30 2RF carvedilol 6.25 mg tablet 12.5 mg PO DAILY torsemide 20 mg tablet 20 mg PO DAILY hydralazine 25 mg tablet 25 mg PO TID isosorbide mononitrate 30 mg tablet extended release 24 hr 30 mg PO DAILY aspirin 81 mg tablet,delayed release (DR/EC) 81 mg PO DAILY rosuvastatin 10 mg tablet 10 mg PO DAILY (DME) pen needle, diabetic [BD Ultra-Fine Mini Pen Needle] 31 gauge x 3/16 needle See Rx Instructions .ROUTE .MEDSUPPLY Qty: 1200 Rx Instructions: As directed (DME) lancets [FreeStyle Lancets] 28 gauge misc See Rx Instructions .ROUTE TID Qty: 100 Rx Instructions: As directed famotidine [Pepcid] 20 mg tablet 20 mg PO BEDTIME Qty: 90 0RF ammonium lactate 12 % lotion 1 appl topical BID Qty: 400 5RF Rx Instructions: apply to bilat lower ext BID, avoid open areas gabapentin 100 mg capsule 100 mg PO BID Qty: 60 0RF lidocaine 4 % gel 1 appl topical TID PRN (Reason: pain) 30 Days Qty: 113 1RF Interventions: ED Discharge Assessment Last Done: 09/16/23 02:35 Discharge Date/Time: 09/16/23 02:41 Print Language: [place]
[2023-09-15 17:16] LABS: MANUAL DIFF FLAG NO
--- NOTE | 2023-09-15 17:42 | MHC.EDTECH ---
PATIENT EKG TAKEN AND WAS READ BY PROVIDER ,BLOOD DRAWN INCLUDING TYPE AND SCREEN ALL SENT TO LAB .
[2023-09-15 17:48] LABS: Alanine Aminotransferase 23 U/L (0-40); Albumin Level 3.3 g/dL (3.5-5.0); Alkaline Phosphatase 68 U/L (39-117); Anion Gap 15 (12-20); Aspartate Amino Transferase 22 U/L (5-37); Bilirubin Total 0.3 mg/dL (0.0-1.0); Blood Urea Nitrogen 51 mg/dL (9-16); Calcium 9.4 mg/dL (8.4-10.2); Carbon Dioxide 23 mmol/L (22-29); Chloride 104 mmol/L (96-108); Creatinine Clr Calc Pharmacy 44.3; Estimated Glomerular Filt Rate 33; Glucose Random 142 mg/dL (60-115); Lipase 26 U/L (8-78); Potassium 4.6 mmol/L (3.3-5.1); Sodium 137 mmol/L (135-145); Total Protein 6.9 g/dL (6.5-8.0)
[2023-09-15 17:49] LABS: Basophils Percent Auto 0.8 % (0-2); Eosinophils Absolute Auto 0.4 X10*3/uL (0.0-0.4); Eosinophils Percent Auto 7.6 % (0-4); Hematocrit 24.1 % (42.0-52.0); Hemoglobin 7.9 g/dl (14.0-18.0); Imm Gran Abs Auto 0.01 X10*3/uL (0.00-0.03); Imm Gran Pct Auto 0.2 % (0.0-0.4); Lymphocytes Absolute Auto 0.7 X10*3/uL (1.2-4.9); Lymphocytes Percent Auto 12.6 % (20-40); Mean Corpuscular HGB Conc 32.8 g/dl (31.0-36.0); Mean Corpuscular Hemoglobin 24.5 pg (27.0-33.0); Mean Corpuscular Volume 74.6 fL (80.0-98.0); Mean Platelet Volume 9.6 fL (9.4-12.4); Monocytes Absolute Auto 0.4 X10*3/uL (0.1-1.2); Monocytes Percent Auto 7.8 % (2-11); Neutrophils Absolute Auto 3.7 x10*3/uL (2.0-8.3); Platelet Count 266 X10*3/uL (160-400); Red Blood Count 3.23 X10*6/uL (4.60-5.80); Red Cell Distribution Width 16.5 % (11.0-16.0); White Blood Count 5.2 X10*3/uL (4.8-10.8)
[2023-09-15 17:53] LABS: Troponin-I High Sensitivity 34.3 ng/L (<3.5-35.0)
--- NOTE | 2023-09-15 17:53 | MHC.EDTECH ---
PATIENT 2ND TYPE AND SCREEN DRAWN AND SENT TO LAB .
[2023-09-15 20:58] VITALS: BP 179/98; PULSE 85; RESP 15; TEMP 36.4; O2SAT 98
--- NOTE | 2023-09-15 22:48 | PC.NURSE ---
pt changed into hospital attire, 20g IV placed in R-ac plan is for pt to have 1 unit PRBC, pt agrees with plan, call holguin within reach
[2023-09-15 23:11] VITALS: BP 171/91; PULSE 84; RESP 16; TEMP 36.8; O2SAT 98
[2023-09-15 23:39] LABS: OBS Int Ctl Valid YES; OBS1 NEGATIVE (NEGATIVE)
[2023-09-15 23:53] VITALS: BP 171/89; PULSE 83; RESP 18; TEMP 36.4
[2023-09-16 00:10] VITALS: BP 167/88; PULSE 83; RESP 17; TEMP 36.4
[2023-09-16 00:16] LABS: Glucose, Whole Blood 135 mg/dL (60-115)
[2023-09-16] MEDS: oxyCODONE HCl Immed Release 5 MG TABLET 10 MG PO (00:21)
[2023-09-16 02:19] VITALS: BP 166/99; PULSE 78; RESP 16; TEMP 36.4
[2023-09-16 02:35] VITALS: BP 166/99; PULSE 78; RESP 16; TEMP 36.4; O2SAT 97
[2023-09-17 07:06] LABS: Glucose, Whole Blood 162 mg/dL (60-115)
== END 2023-09-16 02:41 | disposition home or self-care (01) ==
PROVIDERS: Physician Assistant; Emergency Provider Internal Medicine; PCP Family Medicine
DX: D50.9 Iron deficiency anemia, unspecified (principal); E11.22 Type 2 diabetes mellitus with diabetic chronic kidney disease; I13.0 Hypertensive heart and chronic kidney disease with heart failure and stage 1 through stage 4 chronic kidney disease, or unspecified chronic kidney disease; N18.9 Chronic kidney disease, unspecified; I50.9 Heart failure, unspecified; R53.1 Weakness; Z79.899 Other long term (current) drug therapy
CPT/HCPCS: 36415; 36430; 80053; 82272; 82947; 83690; 84484; 85025; 85610; 86850; 86900; 86901; 86923; 93005; 99285; P9016

== ENCOUNTER → 2023-09-15 16:27 | Outpatient (BNV) | payer OTHER, SELFPAY | PROVIDERS: Emergency Provider Internal Medicine; PCP Family Medicine; Visit Provider Internal Medicine Cardiovascular Disease | DX: R94.31 Abnormal electrocardiogram [ECG] [EKG] (principal) | CPT/HCPCS: 93010 ==

== ENCOUNTER 2023-09-21 15:30 | Outpatient (AMB) | payer OTHER, SELFPAY ==
--- NOTE | 2023-09-21 15:38 | MHC.PC.OV ---
Vital Signs 09/21/23 15:39 Height 6 ft Weight 178 lb 2 oz BMI 24.2 BP 138/74 Blood Pressure Location Lt brachial Position Sitting Pulse 65 Pulse Source Pulse Oximeter Pulse Oximetry (%) 95 Oxygen Delivery Method Room Air Intake Visit Reasons: 1 week follow up CHF/uncontrolled DM/HTN Intake Note: Patient is here for follow up on diabetes and CHF Allergies naproxen Allergy (Severe, Verified 09/21/23 15:53) Hives Medication List - Last Reconciled 09/21/23 by Shmuel Youssef MD ammonium lactate 12% 1 appl topical BID aspirin 81 mg PO DAILY carvedilol 12.5 mg PO DAILY famotidine (Pepcid) 20 mg PO BEDTIME ferrous sulfate 325 mg PO DAILY gabapentin 100 mg PO BID hydralazine 25 mg PO TID insulin glargine (Lantus Solostar U-100 Insulin) 14 units (0.14 mL) subcut QPM 90 days insulin lispro 1 sliding scale dose subcut QIDACHS isosorbide mononitrate ER 30 mg PO DAILY lancets (FreeStyle Lancets) As directed lidocaine 4% 1 appl topical TID PRN 30 days pen needle, diabetic (BD Ultra-Fine Mini Pen Needle) As directed rosuvastatin 10 mg PO DAILY torsemide 20 mg PO DAILY Tobacco use date assessed: 08/18/23 Dental Screening Dental Screen Date: 09/21/23 HPI 1 week follow up CHF/uncontrolled DM/HTN HPI Details 53 y/o male presents to f/u CHF/uncontrolled DM, hypertension. Blood pressure today 138/74. He is on carvedilol 12.5mg daily, hydralazine 25mg t.i.d. Pt reports ongoing lower extremity pain, noting difficulty walking. They report evening blood sugars in the 160-170s. He has not done the increase in his Lantus due to episodes of hypoglycemia. [facility] Medical History Gas bloat syndrome Herniated disc, cervical Back disorder Arthritis Cardiomyopathy High blood pressure Edema Pneumothorax Surgical History [place] teeth extracted Family History Mother Cancer Father Cancer Social History Household Members: Friend(s) Housing: House Are you a primary student career development specialist to a significant other at home: No Do you presently have visiting nurse or other home services: No Alcohol intake: never Patient Tobacco Use Status: Never used Tobacco e-Cigarette/Vaping Use: Never Used service: No Current occupational status: unemployed Current occupational exposures/hazards: No Gender identity: Male Cognitive needs: No Hearing needs: No Vision needs: Yes Questionnaire Thrive Questionnaire Date Thrive assessed: 08/18/23 SMITH-7 AMB Questionnaire SMITH-7 Date SMITH - 7 assessed: 08/18/23 Source: Developed by Drs. Herve Villagomez, Jillian Camargo, Geo Koroma and colleagues, with an educational nicole from [employer]. Review of Systems Const Denies chills, Denies fatigue, Denies fever(s), Denies headache(s) and Denies weakness ENT Denies dizziness and Denies headache(s) Card Denies dyspnea Resp Denies cough, Denies dyspnea, Denies wheezing and Denies other (shortness of breath) Musc Denies numbness and Denies tingling Neuro Denies dizziness, Denies headache(s), Denies numbness, Denies tingling and Denies weakness Psych Denies anxiety and Denies depression Endo Denies fatigue Aller/Immun Denies wheezing Physical exam (Primary Care) Vital Signs: Last Vital Signs Pulse 65 09/21/23 15:39 BP 138/74 09/21/23 15:39 Pulse Ox 95 09/21/23 15:39 Oxygen Delivery Method Room Air 09/21/23 15:39 BMI result Body Mass Index 24.2 Tobacco/Smoking Status: Tobacco use Status Tobacco use date assessed 08/18/23 09/21/23 15:52 Patient Tobacco Use Status Never used Tobacco 09/21/23 15:52 e-Cigarette/Vaping Use Never Used 09/21/23 15:52 Thrive Assessment: Date of Thrive Assessment Date Thrive assessed 08/18/23 09/21/23 15:52 Const General: well developed; No acute distress Nutritional Appearance: well nourished Orientation/consciousness: patient oriented x3 HENMT Head: Yes normocephalic and Yes atraumatic Eyes General: appearance normal, both eyes and all related structures Pupils: Equal, round and reactive pupils present EOM: EOMs intact bilaterally Resp Effort & Inspection: normal respiratory effort Neuro General: patient oriented x3 and gait normal Cranial nerves: Yes Equal, round and reactive pupils present Psych Affect: normal affect Assessment and Plan Assessment & Plan (1) Diabetes mellitus type 2 with complications: Code(s): E11.8 - Type 2 diabetes mellitus with unspecified complications Plan: Improving?control?based?on?patient's?blood?sugars?at?home. Continue?current?medication?regimen (2) CHF (congestive heart failure): Code(s): I50.9 - Heart failure, unspecified Qualifiers: Heart failure chronicity: chronic Heart failure type: combined systolic and diastolic Qualified Code(s): I50.42 - Chronic combined systolic (congestive) and diastolic (congestive) heart failure Plan: Lungs?are?clear?and?patient?is?breathing?easily No?lower?extremity?edema?at?present Continue?torsemide Avoid?salt/sodium (3) High blood pressure: Code(s): I10 - Essential (primary) hypertension Plan: Blood?pressure?is?fairly?well?controlled. Goal?is?less?than?130/80 Continue?current?medication (4) Lower extremity edema: Code(s): R60.0 - Localized edema Plan: No?lower?extremity?edema?or?trace?edema?with venous?stasis?dermatitis Continue?torsemide?and?elevate?leg Avoid?salt/sodium (5) Lower extremity pain: Code(s): M79.606 - Pain in leg, unspecified Plan: Patient?has?ongoing?severe?lower?extremity?pain-likely?neuropathic?pain Advised?gabapentin?and?he?has?some?at?home?so?will?resume?this. Also?has?an?appointment?with??as?this?may?be?secondary?to?claudication Patient?was?given?opioid?medications?in?the?emergency?department Will?give?him?a?short?course?of?Vicodin - advised?him?that?a?long-term?solution?would?be?preferable?such?as?gabapentin Will?discuss?further?at?follow-up?visit (6) CAD (coronary artery disease): Comment: Single-vessel?disease.??60-70%?stenosis mid LAD Code(s): I25.10 - Atherosclerotic heart disease of [place] coronary artery without angina pectoris Plan: Currently?stable Follow-up?with?Cardiology?as?recommend (7) Anemia: Code(s): D64.9 - Anemia, unspecified Plan: Patient?has?a?history?of?coronary?artery?disease?and?his?hemoglobin?level?dropped?below?8 He?was?sent?to?the?emergency?department?and?received?1?unit?packed?red?blood?cells He?has?lab?work?ordered?which?he?will?get?in?the?next?few?days.??We?will?follow-up?in?about?2?weeks. May?need?referral?to?Hematology-Oncology Medications: New simethicone 80 mg PO BID-QID PRN 120 tabs 2RF abdominal distention 30 days hydrocodone-acetaminophen 5-325 mg MassPat Verified. Partial Fill upon patient request. 1 tab PO BID PRN 20 tabs 0RF pain 10 days Coding Level of Care Code Est Pt Level 4 (78708) Diagnoses Diabetes mellitus type 2 with complications E11.8 Chronic combined systolic and diastolic congestive heart failure I50.42 Heart failure chronicity: chronic Heart failure type: combined systolic and diastolic High blood pressure I10 Lower extremity edema R60.0 Lower extremity pain M79.606 CAD (coronary artery disease) I25.10 Anemia D64.9
[2023-09-21 15:39] VITALS: BP 138/74; PULSE 65; O2SAT 95; BMI 24.2
== END 2023-09-21 16:44 | disposition home or self-care (01) ==
PROVIDERS: PCP Family Medicine; Visit Provider Family Medicine
DX: E11.8 Type 2 diabetes mellitus with unspecified complications (principal); I11.0 Hypertensive heart disease with heart failure; I50.42 Chronic combined systolic (congestive) and diastolic (congestive) heart failure; R60.0 Localized edema; M79.606 Pain in leg, unspecified; I25.10 Atherosclerotic heart disease of native coronary artery without angina pectoris; D64.9 Anemia, unspecified
CPT/HCPCS: 99214

== ENCOUNTER 2023-09-25 09:26 | Outpatient (REF) | payer OTHER, SELFPAY ==
[2023-09-25 09:46] LABS: MANUAL DIFF FLAG NO
[2023-09-25 10:53] LABS: Basophils Percent Auto 0.5 % (0-2); Eosinophils Absolute Auto 0.3 X10*3/uL (0.0-0.4); Eosinophils Percent Auto 5.3 % (0-4); Hematocrit 25.3 % (42.0-52.0); Hemoglobin 8.1 g/dl (14.0-18.0); Imm Gran Abs Auto 0.01 X10*3/uL (0.00-0.03); Imm Gran Pct Auto 0.2 % (0.0-0.4); Immature Retic Fraction 10.5 % (2.3-13.4); Lymphocytes Absolute Auto 0.7 X10*3/uL (1.2-4.9); Lymphocytes Percent Auto 13.4 % (20-40); Mean Corpuscular Hemoglobin 24.7 pg (27.0-33.0); Mean Corpuscular Volume 77.1 fL (80.0-98.0); Mean Platelet Volume 9.7 fL (9.4-12.4); Monocytes Absolute Auto 0.5 X10*3/uL (0.1-1.2); Monocytes Percent Auto 8.3 % (2-11); Neutrophils Percent Auto 72.3 % (45-73); Platelet Count 281 X10*3/uL (160-400); Red Blood Count 3.28 X10*6/uL (4.60-5.80); Red Cell Distribution Width 17.2 % (11.0-16.0); Retic HGB Equivalent 29.6 pg (30.0-35.0); Reticulocyte Percent 0.6 % (0.5-1.8); Reticulocytes Absolute 0.018 X10*6/uL (0.026-0.095); White Blood Count 5.5 X10*3/uL (4.8-10.8)
[2023-09-25 11:35] LABS: Anion Gap 13 (12-20); Blood Urea Nitrogen 45 mg/dL (9-16); Calcium 9.5 mg/dL (8.4-10.2); Carbon Dioxide 24 mmol/L (22-29); Chloride 104 mmol/L (96-108); Estimated Glomerular Filt Rate 33; Glucose Random 108 mg/dL (60-115); Iron 40 mcg/dL (45-160); Percent Iron Saturation 20 % (15-50); Potassium 4.4 mmol/L (3.3-5.1); Sodium 137 mmol/L (135-145); Total Iron Binding Capacity 201 mcg/dL (228-428); Unsaturated Iron Binding 161 ug/dL
[2023-09-25 12:09] LABS: Folate 8.9 ng/mL (> or = 4.0); Vitamin B12 532 pg/mL (200-900)
== END 2023-09-25 09:27 | disposition home or self-care (01) ==
LOC: HO.LAB 09:26
PROVIDERS: PCP Family Medicine; Visit Provider Family Medicine
DX: Z00.00 Encounter for general adult medical examination without abnormal findings (principal); D64.9 Anemia, unspecified; E53.8 Deficiency of other specified B group vitamins
CPT/HCPCS: 36415; 80048; 82607; 82746; 83540; 85025; 85045

== ENCOUNTER 2023-09-30 15:12 | Outpatient (AMB) | payer OTHER, SELFPAY ==
--- NOTE | 2023-09-30 15:15 | A.OFFVIS_ITS ---
Vital Signs 09/30/23 15:16 Height 6 ft Weight 178 lb BMI 24.1 Intake Visit Reasons: ROUTE SALES PERSON/ PCP Ref/ Localized edema Intake Note: ROUTE SALES PERSON for LE discoloration and pain. Pt states he gets a throbbing sensation in bilateral LE and ambulation can increase the pain. Pt states this started when he was admitted to the hospital for CHF. He developed blisters and non-healing ulcers. He had some other issues while admitted, the swelling has reduced and wounds have healed, leaving the leg red and purple from the knee to his feet. Underbaster Required: No Accompanied by: Spouse Allergies naproxen Allergy (Severe, Verified 09/30/23 15:48) Hives HPI HPI ROUTE SALES PERSON/ PCP Ref/ Localized edema: Details: Very pleasant 53-year-old gentleman presents for vascular evaluation regarding his lower extremities. He has had a very complex medical course. He will was admitted to [facility] and was subsequently diagnosed with a viral cardiomyopathy. He has had significantly swollen lower extremities. He w as seen by the Cardiology Services there and has been treated for his congestive heart failure. In addition he has had chronic renal insufficiency. He now presents for swelling and discoloration of bilateral lower extremities. [facility] Medical History Gas bloat syndrome Herniated disc, cervical Back disorder Arthritis Cardiomyopathy High blood pressure Edema Pneumothorax Surgical History [place] teeth extracted Family History Mother Cancer Father Cancer Social History Household Members: Friend(s) Housing: House Are you a primary critical care nurse practitioner to a significant other at home: No Do you presently have visiting nurse or other home services: No 75 years or older and lives alone: No Alcohol intake: never Patient Tobacco Use Status: Never used Tobacco e-Cigarette/Vaping Use: Never Used service: No Current occupational status: unemployed Current occupational exposures/hazards: No Gender identity: Male Cognitive needs: No Hearing needs: No Vision needs: Yes Review of Systems Const Reports as per HPI ENT Reports no additional complaints Card Denies chest pain, Denies chest pain at rest and Denies chest pain with activity Resp Denies chest congestion and Denies cough GI Reports no additional complaints Musc Details: pain over varicosities, aching of lower extremities, swelling, cramping, heaviness and tiredness, itching Denies abnormal gait Skin/Breast Reports pruritus and Denies wounds Neuro Reports no additional complaints and Denies abnormal gait Psych Denies no additional complaints Physical Exam Vital Signs: BMI result Body Mass Index 24.1 Const General: cooperative, healthy appearing and comfortable Orientation/consciousness: oriented to person, oriented to place and oriented to time Neck Carotids: no bruits Chest Chest palpation & inspection: normal inspection of the chest and normal palpation of entire chest wall Resp Effort & Inspection: normal respiratory effort and able to speak in complete sentences Cardio Rate: regular rate Heart sounds: S1 normal heart sound present and S2 normal heart sound present Peripheral pulses: Peripheral pulses 2+ throughout GI Inspection: Yes normal to inspection Skin Other: +2 edema, discolored to below-knee CEAP Classification C4 - skin color changes Ep - Etiology Primary As - superficial veins P - reflux General skin exam: dry skin Neuro General: oriented to person, oriented to place and oriented to time Extrem Right lower extremity: full ROM, normal capillary refill and edema Left lower extremity: full ROM, normal capillary refill and edema Psych Mental Status: mental status grossly normal Assessment & Plan Assessment & Plan (1) Varicose veins of right lower extremity with inflammation: Code(s): I83.11 - Varicose veins of right lower extremity with inflammation Category: Medical Plan: In short patient has swollen lower extremities. This may be multifactorial inclusive of his congestive heart failure and chronic renal insufficiency. I have taken the liberty of ordering a Nephrology consult. In addition he has cardiology follow-up with [facility]. I also have ordered venous insufficiency testing to rule that out. I do believe he has an element of dermatitis on top of that as well. We will see how he does overall and proceed from there. He will follow up with us after venous insufficiency testing. Thank you for allowing us to assist in this patient's care (2) CKD (chronic kidney disease) stage 3, GFR 30-59 ml/min: Code(s): N18.30 - Chronic kidney disease, stage 3 unspecified Category: Medical Qualifiers: Chronic kidney disease stage 3 subtype: stage 3b (GFR 30-44) Qualified Code(s): N18.32 - Chronic kidney disease, stage 3b Plan: GFR of nearly 33. Will refer to nephrology Orders: Orders US venous duplex LE BI 1 Week I83.11 - Varicose veins of right lower extremity with inflammation Referrals Nephrology Referral N18.30 - Chronic kidney disease, stage 3 unspecified Coding Level of Care Code New Pt Level 4 (48957) Diagnoses Varicose veins of right lower extremity with inflammation I83.11 Stage 3b chronic kidney disease N18.32 Chronic kidney disease stage 3 subtype: stage 3b (GFR 30-44)
[2023-09-30 15:16] VITALS: BMI 24.1
== END 2023-09-30 16:23 | disposition home or self-care (01) ==
PROVIDERS: Visit Provider Surgery Vascular Surgery
DX: I83.11 Varicose veins of right lower extremity with inflammation (principal); N18.32 Chronic kidney disease, stage 3b
CPT/HCPCS: 99204

== ENCOUNTER → 2023-09-30 15:12 | Outpatient (BNVA) | payer OTHER, SELFPAY | PROVIDERS: Visit Provider Surgery Vascular Surgery | DX: I83.11 Varicose veins of right lower extremity with inflammation (principal); N18.32 Chronic kidney disease, stage 3b | CPT/HCPCS: 99202 ==

== ENCOUNTER 2023-10-07 16:13 | Outpatient (AMB) | payer OTHER, SELFPAY ==
--- NOTE | 2023-10-07 16:19 | HO.NEPHOV_ITS ---
Vital Signs 10/07/23 16:20 Height 6 ft Weight 177 lb BMI 24.0 BP 152/80 H Blood Pressure Location Lt brachial Position Sitting Pulse 80 Pulse Source Pulse Oximeter Pulse Oximetry (%) 97 Oxygen Delivery Method Room Air Intake Visit Reasons: Chronic kidney disease, stage 3/ Conf Basket Maker Required: No Accompanied by: Caregiver Allergies naproxen Allergy (Severe, Verified 10/13/23 08:03) Hives gabapentin Adverse Reaction (Verified 10/13/23 08:03) Photosensitivity HPI Comments Details: Mega is a 53 -year-old man with a history of longstanding diabetes mellitus. He has been referred for renal evaluation since his serum creatinine is around 2.1 mg/dL. He was seen by vascular surgeon Dr. Avery and subsequently referred due to skin lesions Mega primarily complains of leg pain. He has not on any NSAIDs. [facility] Medical History Gas bloat syndrome Herniated disc, cervical Back disorder Arthritis Cardiomyopathy High blood pressure Edema Pneumothorax Surgical History [place] teeth extracted Family History Mother Cancer Father Cancer Social History (Updated 10/13/23 @ 08:02 by Beth Mustafa) Household Members: Friend(s) Housing: House Are you a primary spiritual care coordinator to a significant other at home: No Do you presently have visiting nurse or other home services: No Alcohol intake: never Patient Tobacco Use Status: Never used Tobacco e-Cigarette/Vaping Use: Never Used service: No Current occupational status: unemployed Current occupational exposures/hazards: No Gender identity: Male Cognitive needs: No Hearing needs: No Vision needs: Yes Review of Systems Const Denies fever(s) and Denies weight loss Card Denies chest pain Resp Denies cough and Denies hemoptysis GI Denies abdominal pain, Denies diarrhea and Denies nausea Musc Denies back pain Neuro Denies focal weakness Physical Exam Vital Signs: Last Vital Signs Pulse 80 10/07/23 16:20 BP 152/80 H 10/07/23 16:20 Pulse Ox 97 10/07/23 16:20 Oxygen Delivery Method Room Air 10/07/23 16:20 BMI result Body Mass Index 24.0 Const General: comfortable; No acute distress Orientation/consciousness: patient oriented x3 Eyes General: appearance normal, both eyes and all related structures Visual Lee: normal visual lee by confrontation Neck Neck: Yes supple and Yes no JVD Resp Effort & Inspection: normal respiratory effort and respiratory effort not decreased Auscultation: rhonchi Cardio Palpation: no palpable S3 and no palpable S4 Heart sounds: no rubs GI Inspection: Yes normal to inspection Palpation (GI): Soft to palpation Percussion: Yes normal to percussion Auscultation: normal bowel sounds General: Yes no CVA tenderness Back/Spine/Pelvis Back: no CVA tenderness Skin General skin exam: no petechiae and no purpura Neuro General: patient oriented x3 and no focal motor deficits Extrem General: No clubbing and No edema Results Reviewed Nephrology Results: Hgb 7.8 g/dl (14.0-18.0) L 10/16/23 WBC 6.7 X10*3/uL (4.8-10.8) 10/16/23 Plt Count 236 X10*3/uL (160-400) 10/16/23 Sodium 138 mmol/L (135-145) 10/16/23 Potassium 4.9 mmol/L (3.3-5.1) 10/16/23 Chloride 105 mmol/L (96-108) 10/16/23 Carbon Dioxide 25 mmol/L (22-29) 10/16/23 BUN 57 mg/dL (9-16) H 10/16/23 Creatinine 2.42 mg/dL (0.5-1.4) H 10/16/23 Calcium 9.3 mg/dL (8.4-10.2) 10/16/23 Phosphorus 5.8 mg/dL (2.7-4.5) H 10/16/23 PTH Intact 42.8 pg/mL (8.7-77.1) 10/16/23 Urine Protein >=1000 (4+) mg/dL (Neg-Trace) H 4 Urine Creatinine 69.62 mg/dL 10/16/23 Assessment & Plan Assessment & Plan (1) CKD (chronic kidney disease) stage 3, GFR 30-59 ml/min: Code(s): N18.30 - Chronic kidney disease, stage 3 unspecified Category: Medical Qualifiers: Chronic kidney disease stage 3 subtype: stage 3b (GFR 30-44) Qualified Code(s): N18.32 - Chronic kidney disease, stage 3b (2) Anemia: Code(s): D64.9 - Anemia, unspecified Category: Medical Plan . Mega has CKD 3 with a baseline creatinine around 2.0-2.2 mg/dL. He has nephrotic range proteinuria in the setting of longstanding diabetes mellitus. Probably has underlying diabetic nephropathy. Other nondiabetic causes should be considered. Given the history of skin rash I have ordered serological workup as outlined. I have initiated a workup for proteinuria. Further treatment will be based on the outcome of these investigations. He may even require a kidney biopsy for differential diagnosis based on serologies. In the meantime goal is to maintain blood pressure less than 130/80 and A1c less than 7%. Continue to avoid nephrotoxic agents including NSAIDs. Once the baseline workup is completed returned to office in the next few weeks. Orders: Orders Phosphorus 10/07/23 N18.32 - Chronic kidney disease, stage 3b, D64.9 - Anemia, unspecified Parathyroid Hormone Intact 10/07/23 N18.32 - Chronic kidney disease, stage 3b, D64.9 - Anemia, unspecified US renal BI 10/07/23 N18.32 - Chronic kidney disease, stage 3b Neutrophil Cytoplasma Ab 10/07/23 N1.32 - Chronic kidney disease, stage 3b, D64.9 - Anemia, unspecified Proteinase 3 PR3 Antibodies 10/07/23 N18.32 - Chronic kidney disease, stage 3b, D64.9 - Anemia, unspecified Complement C3 10/07/23 N18.32 - Chronic kidney disease, stage 3b, D64.9 - Anemia, unspecified Complement C4 10/07/23 N18.32 - Chronic kidney disease, stage 3b, D64.9 - Anemia, unspecified Protein Electrophoresis, Serum 10/07/23 N18.32 - Chronic kidney disease, stage 3b, D64.9 - Anemia, unspecified Magnesium 10/07/23 N18.32 - Chronic kidney disease, stage 3b Comprehensive Met. Panel 10/07/23 N18.32 - Chronic kidney disease, stage 3b, D64.9 - Anemia, unspecified Total Protein Urine Random 10/07/238.32 - Chronic kidney disease, stage 3b, D64.9 - Anemia, unspecified UA and rflx microscopic 10/07/23 N18.32 - Chronic kidney disease, stage 3b, D64.9 - Anemia, unspecified Creatinine Urine 10/07/23 N18.32 - Chronic kidney disease, stage 3b, D64.9 - Anemia, unspecified Complete Blood Count no Diff 10/07/23 N18.32 - Chronic kidney disease, stage 3b, D64.9 - Anemia, unspecified Vitamin D 25-OH (D2 and D3) 10/07/23 N18.32 - Chronic kidney disease, stage 3b, D64.9 - Anemia, unspecified Myeloperoxidase Antibody 10/07/23 N18.32 - Chronic kidney disease, stage 3b, D64.9 - Anemia, unspecified Anti Glomerular Basement Memb 10/07/23 N18.32 - Chronic kidney disease, stage 3b, D64.9 - Anemia, unspecified Referrals Pain Management Referral M79.604 - Pain in right leg, M79.605 - Pain in left leg Coding Level of Care Code New Pt Level 4 (47587) Diagnoses Stage 3b chronic kidney disease N18.32 Chronic kidney disease stage 3 subtype: stage 3b (GFR 30-44) Anemia D64.9
[2023-10-07 16:20] VITALS: BP 152/80; PULSE 80; O2SAT 97; BMI 24.0
== END 2023-10-07 16:51 | disposition home or self-care (01) ==
PROVIDERS: PCP Family Medicine; Referring Provider Surgery Vascular Surgery; Visit Provider Internal Medicine Hypertension Specialist
DX: N18.32 Chronic kidney disease, stage 3b (principal); D64.9 Anemia, unspecified
CPT/HCPCS: 99204

== ENCOUNTER → 2023-10-07 16:13 | Outpatient (BNVA) | payer OTHER, SELFPAY | PROVIDERS: PCP Family Medicine; Referring Provider Surgery Vascular Surgery; Visit Provider Internal Medicine Hypertension Specialist | DX: N18.32 Chronic kidney disease, stage 3b (principal); D64.9 Anemia, unspecified | CPT/HCPCS: 99202 ==

== ENCOUNTER 2023-10-12 16:20 | Outpatient (AMB) | payer OTHER, SELFPAY ==
--- NOTE | 2023-10-12 16:29 | A.OFFPC_ITS ---
Vital Signs 10/12/23 16:30 Height 6 ft Weight 175 lb BMI 23.7 BP 152/86 H Blood Pressure Location Lt brachial Position Sitting Pulse 76 Pulse Oximetry (%) 97 Oxygen Delivery Method Room Air Intake Visit Reasons: follow up 2 week Intake Note: Patient is here for 2 week follow up for anemia and chronic conditions. Patient is requesting refill of rosuvstatin and test strips today. Allergies naproxen Allergy (Severe, Verified 10/12/23 16:32) Hives Tobacco use date assessed: 10/12/23 Dental Screening Dental Screen Date: 09/21/23 HPI follow up 2 week HPI Details 53 y/o male presents to f/u anemia and c hronic conditions. Labs were drawn 09/25/23. Reviewed labs with pt. Ongoing anemia but mildly improving. They note he sees Dr. Mora tomorrow. Blood pressure today 152/86. He is on carvedilol 12.5mg, hydralazine 25mg t.i.d. A1c in July was 9.6%. He states blood sugar at home have improved. Pt reports ongoing lower extremity pain. HPI Comments History of Present Illness Details Documentation assistance for Shmuel Youssef MD, was provided by Jabari Siddiqui, Industrial Maintenance Instructor on 10/12/2023 at 5:17 PM EST. I, Dr. Youssef, have read, observed, and verified documentation. [facility] Medical History Gas bloat syndrome Herniated disc, cervical Back disorder Arthritis Cardiomyopathy High blood pressure Edema Pneumothorax Surgical History [place] teeth extracted Family History Mother Cancer Father Cancer Social History Household Members: Friend(s) Housing: House Are you a primary healthcare administration internship to a significant other at home: No Do you presently have visiting nurse or other home services: No 75 years or older and lives alone: No Alcohol intake: never Patient Tobacco Use Status: Never used Tobacco e-Cigarette/Vaping Use: Never Used service: No Current occupational status: unemployed Current occupational exposures/hazards: No Gender identity: Male Cognitive needs: No Hearing needs: No Vision needs: Yes Questionnaire Thrive Questionnaire Date Thrive assessed: 08/18/23 SMITH-7 AMB Questionnaire SMITH-7 Date SMITH - 7 assessed: 08/18/23 Source: Developed by Drs. Herve Villagomez, Jillian Camargo, Geo Koroma and colleagues, with an educational nicole from [employer]. Review of Systems Const Denies chills, Denies fatigue, Denies fever(s), Denies headache(s) and Denies weakness ENT Denies dizziness and Denies headache(s) Card Denies dyspnea Resp Denies cough, Denies dyspnea, Denies wheezing and Denies other (shortness of breath) Musc Denies numbness and Denies tingling Neuro Denies dizziness, Denies headache(s), Denies numbness, Denies tingling and Denies weakness Psych Denies anxiety and Denies depression Endo Denies fatigue Aller/Immun Denies wheezing Physical exam (Primary Care) Vital Signs: Last Vital Signs Pulse 76 10/12/23 16:30 BP 152/86 H 10/12/23 16:30 Pulse Ox 97 10/12/23 16:30 Oxygen Delivery Method Room Air 10/12/23 16:30 BMI result Body Mass Index 23.7 Tobacco/Smoking Status: Tobacco use Status Tobacco use date assessed 10/12/23 10/12/23 16:40 Patient Tobacco Use Status Never used Tobacco 10/12/23 16:31 e-Cigarette/Vaping Use Never Used 10/12/23 16:31 Thrive Assessment: Date of Thrive Assessment Date Thrive assessed 08/18/23 10/12/23 16:31 Const General: well developed; No acute distress Nutritional Appearance: well nourished Orientation/consciousness: patient oriented x3 HENMT Head: Yes normocephalic and Yes atraumatic Eyes General: appearance normal, both eyes and all related structures Pupils: Equal, round and reactive pupils present EOM: EOMs intact bilaterally Resp Effort & Inspection: normal respiratory effort Auscultation: clear to auscultation bilaterally Cardio Rate: regular rate Rhythm: regular rhythm Heart sounds: S1 normal heart sound present, S2 normal heart sound present, no gallops, no murmurs and no rubs Neuro General: patient oriented x3 and gait normal Cranial nerves: Yes Equal, round and reactive pupils present Psych Affect: normal affect Assessment and Plan Assessment & Plan (1) Anemia: Code(s): D64.9 - Anemia, unspecified Plan: Patient?with?coronary?artery?disease?and?anemia. Hemoglobin?had?dropped?below?8?and?he?was?transfused?1?unit?packed?red?blood?aden ls. Most?recent?hemoglobin?8.1 Denies?bleeding He?has?an?appointment?with?Hematology-Oncology?tomorrow. (2) High blood pressure: Code(s): I10 - Essential (primary) hypertension Plan: Blood?pressure?is?still?too?high Increase?hydralazine?to?4?times?per?day (3) CKD (chronic kidney disease) stage 3, GFR 30-59 ml/min: Code(s): N18.30 - Chronic kidney disease, stage 3 unspecified Qualifiers: Chronic kidney disease stage 3 subtype: stage 3b (GFR 30-44) Qualified Code(s): N18.32 - Chronic kidney disease, stage 3b Plan: Significant?chronic?kidney?disease.??Workup?by??A?3-0?is?underway (4) Diabetes mellitus type 2 with complications: Code(s): E11.8 - Type 2 diabetes mellitus with unspecified complications Plan: Most?recent?A1c?was?9.6%. Had?adjusted?his?medications?on?08/25/23.??He?has?been?keeping?a?log?of?blood?salas gars?which?are?significantly?improved Will?follow-up?with?him?again?in?mid?October?in?make?further?adjustments?as?needed (5) Lower extremity pain: Code(s): M79.606 - Pain in leg, unspecified Plan: Ongoing?significant?lower?extremity?pain Has?tried?numerous?remedies?without?relief. Pain?contract?discussed?today?and?will?send?script?for?Percocet??b.i.d. Close?follow-up?at?next?visit?in?1?month He?has?an?appointment?with?pain?management?on?October?8th Medications: New clobetasol 0.05% 1 appl topical BID 2 weeks 120 grams 2RF Changed From rosuvastatin 10 mg PO DAILY To rosuvastatin 10 mg PO DAILY 90 days 90 tabs 3RF From hydralazine 25 mg PO TID To hydralazine 25 mg PO QID 90 days 360 tabs 2RF Coding Level of Care Code Est Pt Level 4 (06964) Diagnoses Anemia D64.9 High blood pressure I10 Stage 3b chronic kidney disease N18.32 Chronic kidney disease stage 3 subtype: stage 3b (GFR 30-44) Diabetes mellitus type 2 with complications E11.8 Lower extremity pain M79.606
[2023-10-12 16:30] VITALS: BP 152/86; PULSE 76; O2SAT 97; BMI 23.7
== END 2023-10-12 17:05 | disposition home or self-care (01) ==
PROVIDERS: PCP Family Medicine; Visit Provider Family Medicine
DX: I12.9 Hypertensive chronic kidney disease with stage 1 through stage 4 chronic kidney disease, or unspecified chronic kidney disease (principal); E11.22 Type 2 diabetes mellitus with diabetic chronic kidney disease; N18.32 Chronic kidney disease, stage 3b; D64.9 Anemia, unspecified; M79.604 Pain in right leg; M79.605 Pain in left leg
CPT/HCPCS: 99214

== ENCOUNTER → 2023-10-13 07:53 | Outpatient (BNV) | payer OTHER, SELFPAY | PROVIDERS: PCP Family Medicine; Referring Provider Family Medicine; Visit Provider Internal Medicine | DX: D64.9 Anemia, unspecified (principal) | CPT/HCPCS: 99204; 99214; G2211 ==

== ENCOUNTER 2023-10-16 09:28 | Outpatient (REF) | payer OTHER, SELFPAY ==
[2023-10-16 10:31] LABS: Hematocrit 24.2 % (42.0-52.0); Hemoglobin 7.8 g/dl (14.0-18.0); Mean Corpuscular HGB Conc 32.2 g/dl (31.0-36.0); Mean Corpuscular Hemoglobin 25.1 pg (27.0-33.0); Mean Corpuscular Volume 77.8 fL (80.0-98.0); Mean Platelet Volume 9.8 fL (9.4-12.4); Platelet Count 236 X10*3/uL (160-400); Red Blood Count 3.11 X10*6/uL (4.60-5.80); Red Cell Distribution Width 17.1 % (11.0-16.0); White Blood Count 6.7 X10*3/uL (4.8-10.8)
[2023-10-16 10:42] LABS: Appearance Urine Clear; Color Urine Yellow; Glucose Urine UA Negative (Negative); Leukocyte Esterase Urine Negative (Negative); Nitrite Urine Negative (Negative); PH 5.5 (5.0-9.0); Specific Gravity - Urine 1.015 (1.005-1.025); UMIC TRIGGER UA YES; Urine Blood Moderate (2+) (Negative); Urine Ketones Negative (Negative); Urine Protein >=1000 (4+) mg/dL (Neg-Trace)
[2023-10-16 10:55] LABS: Bacteria Urine None Seen (None Seen); Squamous Epithelial Cell Urine 0-2 /HPF (0-2); WBC Urine 0-5 /HPF (0-5)
[2023-10-16 10:58] LABS: Alanine Aminotransferase 20 U/L (0-40); Albumin Level 3.5 g/dL (3.5-5.0); Alkaline Phosphatase 67 U/L (39-117); Anion Gap 13 (12-20); Aspartate Amino Transferase 19 U/L (5-37); Bilirubin Total 0.4 mg/dL (0.0-1.0); Blood Urea Nitrogen 57 mg/dL (9-16); Calcium 9.3 mg/dL (8.4-10.2); Carbon Dioxide 25 mmol/L (22-29); Chloride 105 mmol/L (96-108); Estimated Glomerular Filt Rate 28; Glucose Random 102 mg/dL (60-115); Magnesium 2.7 mg/dL (1.6-2.6); Phosphorus 5.8 mg/dL (2.7-4.5); Potassium 4.9 mmol/L (3.3-5.1); Sodium 138 mmol/L (135-145); Total Protein 7.1 g/dL (6.5-8.0)
[2023-10-16 11:02] LABS: Parathyroid Hormone Intact 42.8 pg/mL (8.7-77.1)
[2023-10-16 11:49] LABS: Creatinine Urine 69.62 mg/dL
[2023-10-16 12:35] LABS: Total Protein Urine Random 639 mg/dL (<12)
[2023-10-18 11:28] LABS: Anti Glomerular Basement Memb <1.0 AI; Myeloperoxidase Antibody <1.0 AI; Proteinase 3 PR3 Antibodies <1.0 AI
[2023-10-18 14:24] LABS: Hematocrit 25.3 % (38.5-50.0); MCH 25.2 pg (27.0-33.0); MCV 79.8 fL (80.0-100.0); RBC 3.17 Million/uL (4.20-5.80)
[2023-10-19 05:48] LABS: Complement C3 134 mg/dL (82-185)
[2023-10-19 11:27] LABS: Neutrophil Cyto Ab Screen NEGATIVE (NEGATIVE)
[2023-10-19 13:38] LABS: Prot Elec - Albumin 3.4 g/dL (3.8-4.8); Prot Elec - Alpha1 0.4 g/dL (0.2-0.3); Prot Elec - Alpha2 0.8 g/dL (0.5-0.9); Prot Elec - Beta 1 0.4 g/dL (0.4-0.6); Prot Elec - Beta 2 0.4 g/dL (0.2-0.5); Prot Elec - Gamma 1.2 g/dL (0.8-1.7); Prot Elec - Total Protein 6.6 g/dL (6.1-8.1)
[2023-10-19 16:09] LABS: Copper, serum 113 mcg/dL (70-175)
[2023-10-21 12:38] LABS: Vitamin D 25-OH, D2 <4 ng/mL; Vitamin D 25-OH, D3 31 ng/mL; Vitamin D 25-OH, Total 31 ng/mL (30-100)
== END 2023-10-16 09:29 | disposition home or self-care (01) ==
LOC: HO.LAB 09:28
PROVIDERS: Absent Provider Internal Medicine; PCP Family Medicine; Visit Provider Internal Medicine Hypertension Specialist
DX: N18.32 Chronic kidney disease, stage 3b (principal); D64.9 Anemia, unspecified
CPT/HCPCS: 36415; 80053; 81001; 82306; 82525; 82570; 83020; 83520; 83735; 83970; 84100; 84156; 84165; 85014; 85018; 85027; 85041; 86021; 86036; 86160

== ENCOUNTER 2023-10-19 12:40 | Outpatient (REF) | payer OTHER, SELFPAY ==
--- NOTE | ~2023-10-19 | US_ITS ---
EXAMINATION: US LOWER EXTREMITY VENOUS (REFLUX EXAM), BILATERAL CLINICAL INDICATION: Varicose veins of the right lower extremity COMPARISON: None. TECHNIQUE: Color flow triplex imaging and compression Doppler was performed to evaluate both the deep and the superficial systems bilaterally. To evaluate the superficial system, the examination was performed in the upright position. Color-flow Doppler ultrasound and compression ultrasound were utilized. In addition, maneuvers were utilized to demonstrate reflux. FINDINGS: 1. DEEP VENOUS ULTRASOUND OF THE RIGHT LOWER EXTREMITY: Common Femoral Vein: Compressible, normal respiratory variation and augmented flow. Femoral Vein: Compressible, normal color flow and augmentation. Popliteal Vein: Compressible, normal augmentation. Deep Reflux: There is no evidence of reflux in the deep system in either the common femoral vein, superficial femoral or the popliteal vein. There is no evidence of a Oconnor's cyst. 2. SUPERFICIAL ULTRASOUND WITH DOPPLER OF RIGHT LOWER EXTREMITY: GREAT SAPHENOUS VEIN: Saphenofemoral Junction: 0.7 cm; Reflux: 0 ms Proximal Thigh: 0.4 cm; Reflux: 0 ms Mid Thigh: 0.4 cm; Reflux: 0 ms Above Knee: 0.5 cm; Reflux: 0 ms At Knee: 0.5 cm; Reflux: 0 ms Below Knee: 0.3 cm; Reflux: 0 ms Mid Calf: 0.3 cm; Reflux: 0 ms Ankle: 0.3 cm; Reflux: 0 ms SMALL SAPHENOUS VEIN: Saphenopopliteal Junction: 0.4 cm; Reflux: 0 ms Proximal: 0.4 cm; Reflux: 0 ms Distal: 0.4 cm; Reflux: 0 ms PERFORATORS: Location: Mid SSV Size: 0.3; Reflux: 0 ms Location: Mid thigh Size: 0.09; Reflux: 0 ms Location: [place] Size: 0.2; Reflux: 0 ms VARICOSITIES: Location: None imaged Size: NA; Reflux: 0 ms 3. DEEP VENOUS ULTRASOUND OF THE LEFT LOWER EXTREMITY: Common Femoral Vein: Compressible, normal respiratory variation and augmented flow. Femoral Vein: Compressible, normal color flow and augmentation. Popliteal Vein: Compressible, normal augmentation. Deep Reflux: There is no evidence of reflux in the deep system in either the common femoral vein, superficial femoral or the popliteal vein. There is no evidence of a Oconnor's cyst. 4. SUPERFICIAL ULTRASOUND WITH DOPPLER OF LEFT LOWER EXTREMITY: GREAT SAPHENOUS VEIN: Saphenofemoral Junction: 0.5 cm; Reflux: 0 ms Proximal Thigh: 0.4 cm; Reflux: 0 ms Mid Thigh: 0.3 cm; Reflux: 0 ms Above Knee: 0.3 cm; Reflux: 0 ms At Knee: 0.3 cm; Reflux: 0 ms Below Knee: 0.3 cm; Reflux: 1336 ms Mid Calf: 0.3 cm; Reflux: 0 ms Ankle: 0.3 cm; Reflux: 0 ms SMALL SAPHENOUS VEIN: Saphenopopliteal Junction: 0.4 cm; Reflux: 0 ms Proximal: 0.2 cm; Reflux: 0 ms Distal: 0.3 cm; Reflux: 0 ms PERFORATORS: Location: Distal SSV Size: 0.1; Reflux: 0 ms Location: Proximal thigh Size: 0.2; Reflux: 0 ms Location: Proximal calf Size: 0.3; Reflux: 0 ms VARICOSITIES: Location: None Imaged Size: NA; Reflux: 0 ms US/US venous duplex LE BI IMPRESSION: 1. No evidence of deep venous thrombosis or reflux. 2. No significant venous insufficiency of the right lower extremity, with competent right great saphenous vein and right small saphenous vein. A few perforators are visualized, without reflux. No varicose veins visualized. 3. Focal incompetence of the left great saphenous vein at the level of the proximal calf with reflux measuring up to 1336 ms. The remainder of the left great saphenous vein and the entire left small saphenous vein are competent. There are a few perforators visualized, without reflux. No varicose veins visualized.
== END 2023-10-19 12:41 | disposition home or self-care (01) ==
LOC: HO.US 12:40
PROVIDERS: PCP Family Medicine; Visit Provider Surgery Vascular Surgery
DX: I83.11 Varicose veins of right lower extremity with inflammation (principal)
CPT/HCPCS: 93970

== ENCOUNTER 2023-10-26 15:34 | Outpatient (REF) | payer OTHER, SELFPAY ==
--- NOTE | ~2023-10-26 | US_ITS ---
EXAMINATION: US RETROPERITONEAL LIMITED (RENAL ONLY) CLINICAL INFORMATION: Chronic renal disease. COMPARISON: None available. TECHNIQUE: Real-time sonographic evaluation of the kidneys. FINDINGS: RIGHT KIDNEY: 11.9 x 5.9 x 6.8 cm (SAG x AP x TRV). The kidney is normal in size, contour, and echogenicity. Renal cortical thickness is normal. No calculi or focal solid parenchymal lesions. There is a simple appearing lower pole cyst at 32 x 26 x 27 mm and interpolar cyst at 8 x 8 x 7 mm. No further workup needed. No hydronephrosis. LEFT KIDNEY: 12.8 x 6.6 x 5.7 cm (SAG x AP x TRV). The kidney is normal in size, contour, and echogenicity. Renal cortical thickness is normal. No calculi or focal parenchymal lesions. No hydronephrosis. US/US renal BI IMPRESSION: No hydronephrosis or suspicious findings. Right renal cysts..
== END 2023-10-26 15:35 | disposition home or self-care (01) ==
LOC: HO.US 15:34
PROVIDERS: PCP Family Medicine; Visit Provider Internal Medicine Hypertension Specialist
DX: N18.32 Chronic kidney disease, stage 3b (principal)
CPT/HCPCS: 76775

== ENCOUNTER 2023-11-05 09:22 | Outpatient (AMB) | payer OTHER, SELFPAY ==
[2023-11-05 09:25] VITALS: BP 152/80; PULSE 69; O2SAT 97; BMI 23.9
--- NOTE | 2023-11-05 09:25 | HO.NEPHOV ---
Vital Signs 11/05/23 09:25 Height 6 ft Weight 176 lb BMI 23.9 BP 152/80 H Blood Pressure Location Lt brachial Position Sitting Pulse 69 Pulse Source Pulse Oximeter Pulse Oximetry (%) 97 Oxygen Delivery Method Room Air Intake Visit Reasons: Chronic kidney disease/ Conf [place] Manager Required: No Accompanied by: Caregiver Allergies naproxen Allergy (Severe, Verified 11/05/23 09:28) Hives gabapentin Adverse Reaction (Verified 11/05/23 09:28) Photosensitivity Medication List - Last Reconciled 11/05/23 by Magdaleno Cohen MD ascorbate calcium (vitamin C) 500 mg PO DAILY aspirin 81 mg PO DAILY blood sugar diagnostic (FreeStyle Test strips) Test blood sugar 4 times a day As directed, 90 days carvedilol 12.5 mg (2 x 6.25 mg) PO DAILY 90 days clobetasol 0.05% topical PRN ferrous sulfate 325 mg PO DAILY hydralazine 25 mg PO QID 90 days insulin glargine (Lantus Solostar U-100 Insulin) 14 units (0.14 mL) subcut QPM 90 days insulin lispro 1 sliding scale dose subcut QIDACHS isosorbide mononitrate ER 30 mg PO DAILY lancets (FreeStyle Lancets) As directed magnesium 250 mg PO DAILY oxycodone-acetaminophen 5-325 mg (Percocet) 1 tab PO Q8H PRN 30 days pen needle, diabetic (BD Ultra-Fine Mini Pen Needle) As directed rosuvastatin 10 mg PO DAILY 90 days simethicone 80 mg PO BID-QID PRN 30 days torsemide 20 mg PO DAILY HPI Comments Details: Mega is a 53 -year-old man with a history of longstanding diabetes mellitus. He has been referred for renal evaluation since his serum creatinine is around 2.1 mg/dL. He was seen by vascular surgeon Dr. Avery and subsequently referred due to skin lesions Mega primarily complains of leg pain. He has not on any NSAIDs. 11/05/23 Doing better Eye sight is better post retinal injection [facility] Medical History Gas bloat syndrome Herniated disc, cervical Back disorder Arthritis Cardiomyopathy High blood pressure Edema Pneumothorax Surgical History [place] teeth extracted Family History Mother Cancer Father Cancer Social History Household Members: Friend(s) Housing: House Are you a primary care tech to a significant other at home: No Do you presently have visiting nurse or other home services: No 75 years or older and lives alone: No Alcohol intake: never Patient Tobacco Use Status: Never used Tobacco e-Cigarette/Vaping Use: Never Used service: No Current occupational status: unemployed Current occupational exposures/hazards: No Gender identity: Male Cognitive needs: No Hearing needs: No Vision needs: Yes Physical Exam Vital Signs: Last Vital Signs Pulse 69 11/05/23 09:25 BP 152/80 H 11/05/23 09:25 Pulse Ox 97 11/05/23 09:25 Oxygen Delivery Method Room Air 11/05/23 09:25 BMI result Body Mass Index 23.9 Const General: comfortable; No acute distress Orientation/consciousness: patient oriented x3 Eyes General: appearance normal, both eyes and all related structures Visual Lee: normal visual lee by confrontation Neck Neck: Yes supple and Yes no JVD Resp Effort & Inspection: normal respiratory effort and respiratory effort not decreased Auscultation: rhonchi Cardio Palpation: no palpable S3 and no palpable S4 Heart sounds: no rubs GI Inspection: Yes normal to inspection Palpation (GI): Soft to palpation Percussion: Yes normal to percussion Auscultation: normal bowel sounds General: Yes no CVA tenderness Back/Spine/Pelvis Back: no CVA tenderness Skin General skin exam: no petechiae and no purpura Neuro General: patient oriented x3 and no focal motor deficits Extrem General: No clubbing and No edema Results Reviewed Nephrology Results: Hgb 7.8 g/dl (14.0-18.0) L 10/16/23 WBC 6.7 X10*3/uL (4.8-10.8) 10/16/23 Plt Count 236 X10*3/uL (160-400) 10/16/23 Sodium 138 mmol/L (135-145) 10/16/23 Potassium 4.9 mmol/L (3.3-5.1) 10/16/23 Chloride 105 mmol/L (96-108) 10/16/23 Carbon Dioxide 25 mmol/L (22-29) 10/16/23 BUN 57 mg/dL (9-16) H 10/16/23 Creatinine 2.42 mg/dL (0.5-1.4) H 10/16/23 Calcium 9.3 mg/dL (8.4-10.2) 10/16/23 Phosphorus 5.8 mg/dL (2.7-4.5) H 10/16/23 PTH Intact 42.8 pg/mL (8.7-77.1) 10/16/23 Urine Protein >=1000 (4+) mg/dL (Neg-Trace) H 10/16/23 Urine Creatinine 69.62 mg/dL 10/16/23 Renal US 10/26/23 Assessment & Plan Assessment & Plan (1) CKD (chronic kidney disease) stage 3, GFR 30-59 ml/min: Code(s): N18.30 - Chronic kidney disease, stage 3 unspecified Category: Medical Qualifiers: Chronic kidney disease stage 3 subtype: stage 3b (GFR 30-44) Qualified Code(s): N18.32 - Chronic kidney disease, stage 3b (2) Anemia: Code(s): D64.9 - Anemia, unspecified Category: Medical Plan . Mega has CKD 3 with a baseline creatinine around 2.0-2.2 mg/dL. He has nephrotic range proteinuria in the setting of longstanding diabetes mellitus. Probably has underlying diabetic nephropathy. Nondiabetic causes seem unlikely based on serology maintain blood pressure less than 130/80 and A1c less than 7%. He would benefit from SGLT -2 inhibitors Continue to avoid nephrotoxic agents including NSAIDs. Anemia- mostlikely due to EPO deficiency Waiting to see Hyperparathyroidism/Hyperphosphatemia Add Calcium acetate 1 tab with largest meal( dinner) and stay on low Phos diet- No cola drinks. Minimize nuts/meat Orders: Orders Basic Metabolic Panel 2 Months N18.32 - Chronic kidney disease, stage 3b Phosphorus 2 Months N18.32 - Chronic kidney disease, stage 3b Parathyroid Hormone Intact 2 Months N18.32 - Chronic kidney disease, stage 3b Medications: New calcium acetate Take one with dinner 667 mg PO DAILY 90 tabs 1RF hyperphospatemia Coding Level of Care Code Est Pt Level 4 (92781) Diagnoses Stage 3b chronic kidney disease N18.32 Chronic kidney disease stage 3 subtype: stage 3b (GFR 30-44) Anemia D64.9
== END 2023-11-05 09:52 | disposition home or self-care (01) ==
PROVIDERS: PCP Family Medicine; Visit Provider Internal Medicine Hypertension Specialist
DX: N18.32 Chronic kidney disease, stage 3b (principal); D64.9 Anemia, unspecified
CPT/HCPCS: 99214

== ENCOUNTER → 2023-11-05 09:22 | Outpatient (BNVA) | payer OTHER, SELFPAY | PROVIDERS: PCP Family Medicine; Visit Provider Internal Medicine Hypertension Specialist | DX: N18.32 Chronic kidney disease, stage 3b (principal); D64.9 Anemia, unspecified | CPT/HCPCS: 99212 ==

== ENCOUNTER 2023-11-26 14:49 | Outpatient (AMB) | payer OTHER, SELFPAY ==
--- NOTE | 2023-11-26 15:06 | A.OFFPC_ITS ---
Vital Signs 11/26/23 15:14 11/26/23 15:20 Height 6 ft Weight 164 lb 6 oz BMI 22.3 BP 160/90 H 140/76 H Blood Pressure Location Lt brachial Lt brachial Position Sitting Pulse 68 Pulse Source Pulse Oximeter Temp 97.4 F Temp Source Oral Pulse Oximetry (%) 98 Oxygen Delivery Method Room Air Intake Visit Reasons: est/ follow up on specialists appointments Intake Note: follow up on hemo/onc, nephrology, eye surgen, diabetes, lowerd dose of lantus from 14 to 12 units due to waking up hypoglycemic pt states he hasnt needed to take his lispro in 6 weeks since he lowerd dose of lantus. Allergies naproxen Allergy (Severe, Verified 11/26/23 15:09) Hives gabapentin Adverse Reaction (Verified 11/26/23 15:09) Photosensitivity Tobacco use date assessed: 11/26/23 Dental Screening Dental Screen Date: 09/21/23 HPI est/ follow up on specialists appointments HPI Details Pt presents to f/u chronic conditions including anemia, CKD, hypertension, peripheral arterial disease, diabetes and chronic pain. Last A1c 08/18/23 9.6%. He states he lowered his lantus from 14 to 12 units due to waking up hypoglycemic. A1c today 11/26/23 5.8%. He reports he has not been taking lispro x6 weeks. Blood pressure today 140/76. He is on carvedilol. hydaralazine 25mg daily. HPI Comments History of Present Illness Details Documentation assistance for Shmuel Youssef MD, was provided by Jabari Siddiqui, [employer] Developer on 11/26/2023 at 3:36 PM EST. I, Dr. Youssef, have read, observed, and verified documentation. [facility] Medical History Gas bloat syndrome Herniated disc, cervical Back disorder Arthritis Cardiomyopathy High blood pressure Edema Pneumothorax Surgical History [place] teeth extracted Family History Mother Cancer Father Cancer Social History Household Members: Friend(s) Housing: House Are you a primary health care social worker to a significant other at home: No Do you presently have visiting nurse or other home services: No 75 years or older and lives alone: No Alcohol intake: never Patient Tobacco Use Status: Never used Tobacco e-Cigarette/Vaping Use: Never Used service: No Current occupational status: unemployed Current occupational exposures/hazards: No Gender identity: Male Cognitive needs: No Hearing needs: No Vision needs: Yes Questionnaire Thrive Questionnaire Date Thrive assessed: 08/18/23 SMITH-7 AMB Questionnaire SMITH-7 Date SMITH - 7 assessed: 08/18/23 Source: Developed by Drs. Herve Villagomez, Jillian Camargo, Geo Koroma and colleagues, with an educational nicole from [employer]. Review of Systems Const Denies chills, Denies fatigue, Denies fever(s), Denies headache(s) and Denies weakness ENT Denies dizziness and Denies headache(s) Card Denies dyspnea Resp Denies cough, Denies dyspnea, Denies wheezing and Denies other (shortness of breath) Musc Denies numbness and Denies tingling Neuro Denies dizziness, Denies headache(s), Denies numbness, Denies tingling and Denies weakness Psych Denies anxiety and Denies depression Endo Denies fatigue Aller/Immun Denies wheezing Physical exam (Primary Care) Vital Signs: Last Vital Signs Temp 97.4 F 11/26/23 15:14 Pulse 68 11/26/23 15:14 BP 140/76 H 11/26/23 15:20 Pulse Ox 98 11/26/23 15:14 Oxygen Delivery Method Room Air 11/26/23 15:14 BMI result Body Mass Index 22.3 Tobacco/Smoking Status: Tobacco use Status Tobacco use date assessed 11/26/23 11/26/23 15:20 Patient Tobacco Use Status Never used Tobacco 11/26/23 15:07 e-Cigarette/Vaping Use Never Used 11/26/23 15:07 Thrive Assessment: Date of Thrive Assessment Date Thrive assessed 08/18/23 11/26/23 15:07 Const General: well developed; No acute distress Nutritional Appearance: well nourished Orientation/consciousness: patient oriented x3 HENMT Head: Yes normocephalic and Yes atraumatic Eyes General: appearance normal, both eyes and all related structures Pupils: Equal, round and reactive pupils present EOM: EOMs intact bilaterally Resp Effort & Inspection: normal respiratory effort Neuro General: patient oriented x3 and gait normal Cranial nerves: Yes Equal, round and reactive pupils present Psych Affect: normal affect Assessment and Plan Assessment & Plan (1) Diabetes mellitus type 2 with complications: Code(s): E11.8 - Type 2 diabetes mellitus with unspecified complications Plan: A1c?now?5.8%. He?had?been?having?some?low?blood?sugars?and?decreased?his?Lantus?from?14?units? daily?to?12?units?daily.??Now?morning?blood?sugars?typically?between?85?and?120 Good?blood?sugar?control.??Goal?is?less?than?7.0% Continue?current?medication?regimen?and?follow-up?with?Endocrine?as?recommended. Currently?not?on?an?SGLT2?inhibitor?and?this?would?be?beneficial?for?his?kidneys ?but?waiting?for?him?to?be?more?stable?with?his?other?diagnoses. He?can?discuss?with?his?liquid flavor compounder?as?well (2) High blood pressure: Code(s): I10 - Essential (primary) hypertension Plan: Blood?pressure?continues?to?improve Avoiding?medications?that?would?affect?his?kidneys. Was?avoiding?amlodipine?previously?be cause?he?had?significant?lower?extremity?edema?but?this?has?resolved. Will?give?him?a?script?for?amlodipine?5?mg?daily. If?it?caused?lower?extremity?edema?he?can?try?breaking?this?half?and?if?still?h aving?difficulty?he?can?stop?this?and?let?me?know. (3) Anemia: Code(s): D64.9 - Anemia, unspecified Plan: Hematology- Oncology?feels?this?is?multifactorial?and?probably?partly?due?to?iron?deficiency ?and?also?due?to?chronic?renal?failure. Slightly?improved?and?only?recently?had?his?for?a?Procrit?shot He?is?also?on?iron- this?is?causing?some?abdominal?discomfort.??He?may?benefit?from?infusions?if?nee ded. (4) CKD (chronic kidney disease) stage 3, GFR 30-59 ml/min: Code(s): N18.30 - Chronic kidney disease, stage 3 unspecified Qualifiers: Chronic kidney disease stage 3 subtype: stage 3b (GFR 30-44) Qualified Code(s): N18.32 - Chronic kidney disease, stage 3b Plan: Nephrology?feels?this?is?primarily?a?diabetic?nephropathy.??Blood?pressure?has?a lso?been?significantly?high?and?likely?a?factor?as?well Diabetes?now?much?better?controlled.??Working?on?getting?his?bl ood?pressure?under?better?control - see?above Follow-up?with?nephrology?as?recommended (5) Leg pain, bilateral: Code(s): M79.604 - Pain in right leg; M79.605 - Pain in left leg Plan: Improving?with?Percocet Focal?Right?ankle?pain - will?check?x-ray (6) GERD without esophagitis: Code(s): K21.9 - Gastro-esophageal reflux disease without esophagitis Plan: Patient?may?have?GERD? with?gastritis/esophagitis.??May?also?have?gastric?nephropathy. Will?give?him?omeprazole He?can?discontinue?this?if?not?improving (7) Pain of left scapula: Code(s): M89.8X1 - Other specified disorders of bone, shoulder Plan: Likely?strain?subscapular?muscle Ice/heat Physical?therapy Orders: Orders XR ankle RT min 3V Today M25.571 - Pain in right ankle and joints of right foot PT Evaluation and Treatment Today M89.8X1 - Other specified disorders of bone, shoulder Medications: New amlodipine 5 mg PO DAILY 90 days 90 tabs 1RF omeprazole 20 mg PO DAILY 30 days 30 caps 1RF Coding Level of Care Code Est Pt Level 4 (73600) Diagnoses Diabetes mellitus type 2 with complications E11.8 High blood pressure I10 Anemia D64.9 Stage 3b chronic kidney disease N18.32 Chronic kidney disease stage 3 subtype: stage 3b (GFR 30-44) Leg pain, bilateral M79.604; M79.605 GERD without esophagitis K21.9 Pain of left scapula M89.8X1
[2023-11-26 15:14] VITALS: BP 160/90; PULSE 68; TEMP 36.3; O2SAT 98; BMI 22.3
[2023-11-26 15:20] VITALS: BP 140/76
== END 2023-11-26 16:17 | disposition home or self-care (01) ==
PROVIDERS: PCP Family Medicine; Visit Provider Family Medicine
DX: I12.9 Hypertensive chronic kidney disease with stage 1 through stage 4 chronic kidney disease, or unspecified chronic kidney disease (principal); E11.22 Type 2 diabetes mellitus with diabetic chronic kidney disease; N18.32 Chronic kidney disease, stage 3b; D64.9 Anemia, unspecified; M79.604 Pain in right leg; M79.605 Pain in left leg; K21.9 Gastro-esophageal reflux disease without esophagitis; M89.8X1 Other specified disorders of bone, shoulder; M25.512 Pain in left shoulder
CPT/HCPCS: 83036; 99214

== ENCOUNTER 2023-11-30 15:42 | Outpatient (REF) | payer OTHER, SELFPAY ==
[2023-11-30 18:40] LABS: Amphetamine Screen Urine Not Detected (Not Detect); Barbiturates, Urine Not Detected (Not Detect); Benzodiazepines Screen Urine Not Detected (Not Detect); Buprenorphine Scr Not Detected (Not Detect); Cannabinoid Screen Urine Not Detected (Not Detect); Cocaine Screen Urine Not Detected (Not Detect); Fentanyl, urine Not Detected (Not Detect); Methadone Screen, Urine Not Detected (Not Detect); Opiate Screen Urine Not Detected (Not Detect); Oxycodone Screen Urine Positive (Not Detect); Phencyclidine Screen Urine Not Detected (Not Detect)
== END 2023-11-30 15:43 | disposition home or self-care (01) ==
LOC: HO.WFDLDS 15:42
PROVIDERS: Visit Provider Family Medicine
DX: M79.604 Pain in right leg (principal); M79.605 Pain in left leg
CPT/HCPCS: 80307

== ENCOUNTER 2023-12-24 11:34 | Outpatient (REF) | payer OTHER, SELFPAY ==
[2023-12-24 12:35] LABS: Anion Gap 10 (12-20); Blood Urea Nitrogen 57 mg/dL (9-16); Calcium 9.4 mg/dL (8.4-10.2); Carbon Dioxide 24 mmol/L (22-29); Chloride 107 mmol/L (96-108); Estimated Glomerular Filt Rate 23; Glucose Random 133 mg/dL (60-115); Phosphorus 4.9 mg/dL (2.7-4.5); Potassium 4.6 mmol/L (3.3-5.1); Sodium 136 mmol/L (135-145)
[2023-12-24 12:40] LABS: Parathyroid Hormone Intact 26.9 pg/mL (8.7-77.1)
[2023-12-24 12:50] LABS: Appearance Urine Clear; Color Urine Yellow; Glucose Urine UA Negative (Negative); Leukocyte Esterase Urine Negative (Negative); Nitrite Urine Negative (Negative); Specific Gravity - Urine 1.015 (1.005-1.025); UMIC TRIGGER UA YES; Urine Blood Trace (Negative); Urine Ketones Negative (Negative); Urine Protein 300 (3+) mg/dL (Neg-Trace)
[2023-12-24 12:55] LABS: Bacteria Urine None Seen (None Seen); Squamous Epithelial Cell Urine 0-2 /HPF (0-2); WBC Urine 0-5 /HPF (0-5)
== END 2023-12-24 11:35 | disposition home or self-care (01) ==
LOC: HO.LAB 11:34
PROVIDERS: PCP Family Medicine; Visit Provider Internal Medicine Hypertension Specialist
DX: N18.32 Chronic kidney disease, stage 3b (principal); D64.9 Anemia, unspecified
CPT/HCPCS: 36415; 80048; 81001; 83970; 84100

== ENCOUNTER 2024-01-06 16:11 | Outpatient (AMB) | payer OTHER, SELFPAY ==
--- NOTE | 2024-01-06 16:44 | A.OFFPC_ITS ---
Vital Signs 01/06/24 16:48 Height 6 ft Weight 171 lb 2 oz BMI 23.2 BP 160/80 H Blood Pressure Location Lt brachial Position Sitting Respiration 12 Pulse 90 Pulse Source Pulse Oximeter Temp 96.9 F Temp Source Tympanic Pulse Oximetry (%) 98 Oxygen Delivery Method Room Air Intake Visit Reasons: f/u hypertension, chronic conditions Intake Note: f/u HTN Allergies naproxen Allergy (Severe, Verified 01/06/24 16:47) Hives gabapentin Adverse Reaction (Verified 01/06/24 16:47) Photosensitivity Tobacco use date assessed: 11/26/23 Dental Screening Dental Screen Date: 09/21/23 HPI f/u hypertension, chronic conditions HPI Details 53 y/o male presents to f/u hypertension with CRF, diabetes. Had added amlodopine. Has had LE edema in the past. No R-ankle x-ray - had complaints of R lateral melleolus pain. Blood pressure today 160/80, 90p. He is on amlodipine 5mg, carvedilol 12.5mg, hydralazine 25mg qid but he states he has been taking this three times a day. Denies any swelling to his lower extremities. Recent visit with hematology oncology for anemia and recent procrit administration. Has complaints of abominal bloating. Has never had a colonoscopy. HPI Comments History of Present Illness Details Documentation assistance for Shmuel Youssef MD, was provided by Jabari Siddiqui, [employer] on 01/06/2024 at 5:16 PM EST. I, Dr. Youssef, have read, observed, and verified documentation. [facility] Medical History Gas bloat syndrome Herniated disc, cervical Back disorder Arthritis Cardiomyopathy High blood pressure Edema Pneumothorax Surgical History [place] teeth extracted Family History Mother Cancer Father Cancer Social History Household Members: Friend(s) Housing: House Are you a primary palliative care nurse to a significant other at home: No Do you presently have visiting nurse or other home services: No 75 years or older and lives alone: No Alcohol intake: never Patient Tobacco Use Status: Never used Tobacco e-Cigarette/Vaping Use: Never Used service: No Current occupational status: unemployed Current occupational exposures/hazards: No Gender identity: Male Cognitive needs: No Hearing needs: No Vision needs: Yes Questionnaire Thrive Questionnaire Date Thrive assessed: 08/18/23 SMITH-7 AMB Questionnaire SMITH-7 Date SMITH - 7 assessed: 08/18/23 Source: Developed by Drs. Herve Villagomez, Jillian Camargo, Geo Koroma and colleagues, with an educational nicole from [email or web address]. Review of Systems Const Denies chills, Denies fatigue, Denies fever(s), Denies headache(s) and Denies weakness ENT Denies dizziness and Denies headache(s) Card Denies dyspnea Resp Denies cough, Denies dyspnea, Denies wheezing and Denies other (shortness of breath) GI Reports bloating Musc Denies numbness and Denies tingling Neuro Denies dizziness, Denies headache(s), Denies numbness, Denies tingling and Denies weakness Psych Denies anxiety and Denies depression Endo Denies fatigue Aller/Immun Denies wheezing Physical exam (Primary Care) Vital Signs: Last Vital Signs Temp 96.9 F 01/06/24 16:48 Pulse 90 01/06/24 16:48 Resp 12 01/06/24 16:48 BP 160/80 H 01/06/24 16:48 Pulse Ox 98 01/06/24 16:48 Oxygen Delivery Method Room Air 01/06/24 16:48 BMI result Body Mass Index 23.2 Tobacco/Smoking Status: Tobacco use Status Tobacco use date assessed 11/26/23 01/06/24 16:46 Patient Tobacco Use Status Never used Tobacco 01/06/24 16:46 e-Cigarette/Vaping Use Never Used 01/06/24 16:46 Thrive Assessment: Date of Thrive Assessment Date Thrive assessed 08/18/23 01/06/24 16:46 Const General: well developed; No acute distress Nutritional Appearance: well nourished Orientation/consciousness: patient oriented x3 HENMT Head: Yes normocephalic and Yes atraumatic Eyes General: appearance normal, both eyes and all related structures Pupils: Equal, round and reactive pupils present EOM: EOMs intact bilaterally Resp Effort & Inspection: normal respiratory effort Auscultation: clear to auscultation bilaterally Cardio Rate: regular rate Rhythm: regular rhythm Heart sounds: S1 normal heart sound present, S2 normal heart sound present, no gallops, no murmurs and no rubs Neuro General: patient oriented x3 and gait normal Cranial nerves: Yes Equal, round and reactive pupils present Psych Affect: normal affect Assessment and Plan Assessment & Plan (1) High blood pressure: Code(s): I10 - Essential (primary) hypertension Plan: Blood?pressure?is?still?too?high Goal?is?less?than?130/80 He?is?taking?hydralazine?t.i.d.?and?I?had?added?amlodipine?at?his?last?visit.??W ill?have?him?increas e?hydralazine?to?4?times?a?day?again?and?continue?amlodipine. (2) Anemia: Code(s): D64.9 - Anemia, unspecified Plan: Now?receiving?Procrit?shot H&H?is?improving Continue?Procrit?and?follow-up?with?Hematology-Oncology (3) CKD (chronic kidney disease) stage 3, GFR 30-59 ml/min: Code(s): N18.30 - Chronic kidney disease, stage 3 unspecified Qualifiers: Chronic kidney disease stage 3 subtype: stage 3b (GFR 30-44) Qualified Code(s): N18.32 - Chronic kidney disease, stage 3b Plan: Followed?by?Nephrology Stable Follow-up?with?nephrology?as?recommended (4) CAD (coronary artery disease): Comment: Single-vessel?disease.??60-70%?stenosis mid LAD Code(s): I25.10 - Atherosclerotic heart disease of [place] coronary artery without angina pectoris Plan: Follow-up?with?Cardiology?as?recommended (5) Ankle pain, right: Code(s): M25.571 - Pain in right ankle and joints of right foot Plan: Patient?has?somewhat?migratory?arthralgias/myalgia?of?lower?extremity Some?of?this?is?related?to?neuropathy Will?give?him?a?script?for?a?low?dose?of?gabapentin - will?not?exceed?100?mg?daily?due?to?renal?function Continue?Percocet; had?prescribed?p.r.n.?up?to?3?times?a?day?and?patient?is?needing?at?3?times?a?da y?so?will?increase?script?to?90?tablets?per?month Do?not?exceed?3?times?a?day?with?this?medication (6) Abdominal bloating: Code(s): R14.0 - Abdominal distension (gaseous) Plan: Referred?to?Gastroenterology (7) Screening for colon cancer: Code(s): Z12.11 - Encounter for screening for malignant neoplasm of colon Plan: Referred?to?Gastroenterology?for?1st?screening?colonoscopy (8) Lower extremity pain: Code(s): M79.606 - Pain in leg, unspecified Plan: As Orders: Referrals Gastroenterology Referral R14.0 - Abdominal distension (gaseous), Z12.11 - Encounter for screening for malignant neoplasm of colon Medications: New gabapentin 100 mg PO BEDTIME 30 caps 2RF 30 days Refilled oxycodone-acetaminophen 5-325 mg (Percocet) MassPat Verified, Partial Fill upon patient request. 1 tab PO Q8H PRN 90 tabs 0RF pain 30 days Coding Level of Care Code Est Pt Level 4 (77322) Diagnoses High blood pressure I10 Anemia D64.9 Stage 3b chronic kidney disease N18.32 Chronic kidney disease stage 3 subtype: stage 3b (GFR 30-44) CAD (coronary artery disease) I25.10 Ankle pain, right M25.571 Abdominal bloating R14.0 Screening for colon cancer Z12.11 Lower extremity pain M79.606
[2024-01-06 16:48] VITALS: BP 160/80; PULSE 90; RESP 12; TEMP 36.1; O2SAT 98; BMI 23.2
== END 2024-01-06 17:05 ==
PROVIDERS: PCP Family Medicine; Visit Provider Family Medicine
DX: I12.9 Hypertensive chronic kidney disease with stage 1 through stage 4 chronic kidney disease, or unspecified chronic kidney disease (principal); N18.32 Chronic kidney disease, stage 3b; D64.9 Anemia, unspecified; I25.10 Atherosclerotic heart disease of native coronary artery without angina pectoris; M25.571 Pain in right ankle and joints of right foot; R14.0 Abdominal distension (gaseous); M79.604 Pain in right leg; Z12.11 Encounter for screening for malignant neoplasm of colon
CPT/HCPCS: 99214

== ENCOUNTER 2024-01-10 15:04 | Outpatient (AMB) | payer OTHER, SELFPAY ==
[2024-01-10 15:14] VITALS: BP 150/80; PULSE 67; O2SAT 97; BMI 23.6
--- NOTE | 2024-01-10 15:14 | HO.NEPHOV ---
Vital Signs 01/10/24 15:14 01/10/24 15:56 Height 6 ft Weight 174 lb BMI 23.6 BP 150/80 H 140/60 H Blood Pressure Location Lt brachial Lt brachial Position Sitting Sitting Pulse 67 Pulse Source Pulse Oximeter Pulse Oximetry (%) 97 Oxygen Delivery Method Room Air Intake Visit Reasons: Ckd/ Conf Systems Test Analyst Required: No Accompanied by: Spouse Allergies naproxen Allergy (Severe, Verified 01/10/24 15:16) Hives gabapentin Adverse Reaction (Verified 01/10/24 15:16) Photosensitivity Medication List - Last Reconciled 01/10/24 by Magdaleno Cohen MD amlodipine 5 mg PO DAILY 90 days ascorbate calcium (vitamin C) 500 mg PO DAILY aspirin 81 mg PO DAILY blood sugar diagnostic (FreeStyle Test strips) Test blood sugar 4 times a day As directed, 90 days calcium acetate 667 mg PO DAILY carvedilol 12.5 mg (2 x 6.25 mg) PO DAILY 90 days clobetasol 0.05% 0.05 appl topical DAILY PRN ferrous sulfate 325 mg PO DAILY 90 days hydralazine 25 mg PO QID 90 days insulin glargine (Lantus Solostar U-100 Insulin) 14 units (0.14 mL) subcut QPM 90 days insulin lispro 1 sliding scale dose subcut QIDACHS lancets (FreeStyle Lancets) As directed magnesium 250 mg PO DAILY oxycodone-acetaminophen 5-325 mg (Percocet) 1 tab PO Q8H PRN 30 days pen needle, diabetic (BD Ultra-Fine Mini Pen Needle) As directed rosuvastatin 10 mg PO DAILY 90 days simethicone 80 mg PO BID-QID PRN 30 days torsemide 20 mg PO DAILY HPI Comments Details: Mega is a 53 -year-old man with a history of longstanding diabetes mellitus. He has been referred for renal evaluation since his serum creatinine is around 2.1 mg/dL. He was seen by vascular surgeon Dr. Avery and subsequently referred due to skin lesions Mega primarily complains of leg pain. He has not on any NSAIDs. 11/05/23 Doing better Eye sight is better post retinal injection 01/10/2024. Blood sugar is better controlled. He is waiting for surgery on February 08. Has abdominal discomfort on and off Has been referred for GI evaluation for possible endoscopy [facility] Medical History Gas bloat syndrome Herniated disc, cervical Back disorder Arthritis Cardiomyopathy High blood pressure Edema Pneumothorax Surgical History [place] teeth extracted Family History Mother Cancer Father Cancer Social History Household Members: Friend(s) Housing: House Are you a primary care support representative to a significant other at home: No Do you presently have visiting nurse or other home services: No 75 years or older and lives alone: No Alcohol intake: never Patient Tobacco Use Status: Never used Tobacco e-Cigarette/Vaping Use: Never Used service: No Current occupational status: unemployed Current occupational exposures/hazards: No Gender identity: Male Cognitive needs: No Hearing needs: No Vision needs: Yes Physical Exam Vital Signs: Last Vital Signs Pulse 67 01/10/24 15:14 BP 140/60 H 01/10/24 15:56 Pulse Ox 97 01/10/24 15:14 Oxygen Delivery Method Room Air 01/10/24 15:14 BMI result Body Mass Index 23.6 Const General: comfortable; No acute distress Orientation/consciousness: patient oriented x3 Eyes General: appearance normal, both eyes and all related structures Visual Lee: normal visual lee by confrontation Neck Neck: Yes supple and Yes no JVD Resp Effort & Inspection: normal respiratory effort and respiratory effort not decreased Auscultation: rhonchi Cardio Palpation: no palpable S3 and no palpable S4 Heart sounds: no rubs GI Inspection: Yes normal to inspection Palpation (GI): Soft to palpation Percussion: Yes normal to percussion Auscultation: normal bowel sounds General: Yes no CVA tenderness Back/Spine/Pelvis Back: no CVA tenderness Skin General skin exam: no petechiae and no purpura Neuro General: patient oriented x3 and no focal motor deficits Extrem General: No clubbing and No edema Results Reviewed Nephrology Results: Hgb 9.2 g/dl (14.0-18.0) L 12/24/23 WBC 4.7 X10*3/uL (4.8-10.8) L 12/24/23 Plt Count 190 X10*3/uL (160-400) 12/24/23 Sodium 136 mmol/L (135-145) 12/24/23 Potassium 4.6 mmol/L (3.3-5.1) 12/24/23 Chloride 107 mmol/L (96-108) 12/24/23 Carbon Dioxide 24 mmol/L (22-29) 12/24/23 BUN 57 mg/dL (9-16) H 12/24/23 Creatinine 2.87 mg/dL (0.5-1.4) H 12/24/23 Calcium 9.4 mg/dL (8.4-10.2) 12/24/23 Phosphorus 4.9 mg/dL (2.7-4.5) H 12/24/23 PTH Intact 26.9 pg/mL (8.7-77.1) 12/24/23 Urine Protein 300 (3+) mg/dL (Neg-Trace) H 12/24/23 Urine Creatinine 69.62 mg/dL 10/16/23 Renal US 10/26/23 Assessment & Plan Assessment & Plan (1) CKD (chronic kidney disease) stage 3, GFR 30-59 ml/min: Code(s): N18.30 - Chronic kidney disease, stage 3 unspecified Category: Medical Qualifiers: Chronic kidney disease stage 3 subtype: stage 3b (GFR 30-44) Qualified Code(s): N18.32 - Chronic kidney disease, stage 3b (2) Anemia: Code(s): D64.9 - Anemia, unspecified Category: Medical (3) Gas bloat syndrome: Code(s): K92.89 - Other specified diseases of the digestive system Category: Medical Plan . Mega has CKD 3 with a baseline creatinine around 2.0-2.2 mg/dL. He has nephrotic range proteinuria in the setting of longstanding diabetes mellitus. Probably has underlying diabetic nephropathy. Nondiabetic causes seem unlikely based on serology maintain blood pressure less than 130/80 and A1c less than 7%. He would benefit from SGLT -2 inhibitors Continue to avoid nephrotoxic agents including NSAIDs. Anemia- most likely due to EPO deficiency Waiting to see Hyperparathyroidism/Hyperphosphatemia Calcium acetate 1 tab with largest meal( dinner) and stay on low Phos diet- No cola drinks. Minimize nuts/meat Orders: Orders US abdomen complete Today K92.89 - Other specified diseases of the digestive system, R10.9 - Unspecified abdominal pain Basic Metabolic Panel 9 Days N18.32 - Chronic kidney disease, stage 3b Complete Blood Count Auto Diff 9 Days N18.32 - Chronic kidney disease, stage 3b Coding Level of Care Code Est Pt Level 4 (92994) Diagnoses Stage 3b chronic kidney disease N18.32 Chronic kidney disease stage 3 subtype: stage 3b (GFR 30-44) Anemia D64.9 Gas bloat syndrome K92.89
[2024-01-10 15:56] VITALS: BP 140/60
== END 2024-01-10 16:01 | disposition home or self-care (01) ==
PROVIDERS: PCP Family Medicine; Visit Provider Internal Medicine Hypertension Specialist
DX: N18.32 Chronic kidney disease, stage 3b (principal); D64.9 Anemia, unspecified; K92.89 Other specified diseases of the digestive system
CPT/HCPCS: 99214

== ENCOUNTER → 2024-01-10 15:04 | Outpatient (BNVA) | payer OTHER, SELFPAY | PROVIDERS: PCP Family Medicine; Visit Provider Internal Medicine Hypertension Specialist | DX: E11.22 Type 2 diabetes mellitus with diabetic chronic kidney disease (principal); N18.32 Chronic kidney disease, stage 3b; D63.1 Anemia in chronic kidney disease | CPT/HCPCS: 99212 ==

== ENCOUNTER 2024-01-20 09:09 | Outpatient (AMB) | payer OTHER, SELFPAY ==
[2024-01-20 09:36] VITALS: BMI 23.6
--- NOTE | 2024-01-20 09:36 | A.OFFVIS_ITS ---
Vital Signs 01/20/24 09:36 Height 6 ft Weight 174 lb BMI 23.6 Intake Visit Reasons: follow up [facility] 10/19/23 Intake Note: followup 10/19/23 for bilateral LE swelling, discoloration and pain. Pt states it's very difficult to ambulate due to the pain. Pt states bilateral LE are equal most of the time but the Right LE has been worse recently. Accompanied by: Spouse Allergies naproxen Allergy (Severe, Verified 01/20/24 09:39) Hives gabapentin Adverse Reaction (Verified 01/20/24 09:39) Photosensitivity HPI HPI follow up [facility] 10/19/23: Details: Very pleasant 53-year-old gentleman presents for follow-up regarding venous insufficiency. 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 Also has seen Cardiology and has been diagnosed with congestive heart failure also has an element of renal insufficiency as well. Does have some edema and discoloration of the lower extremities which was of concern for him. We did obtain venous insufficiency testing. He now presents for follow-up [facility] Medical History Gas bloat syndrome Herniated disc, cervical Back disorder Arthritis Cardiomyopathy High blood pressure Edema Pneumothorax Surgical History [place] teeth extracted Family History Mother Cancer Father Cancer Social History Household Members: Friend(s) Housing: House Are you a primary career counselor to a significant other at home: No Do you presently have visiting nurse or other home services: No 75 years or older and lives alone: No Alcohol intake: never Patient Tobacco Use Status: Never used Tobacco e-Cigarette/Vaping Use: Never Used service: No Current occupational status: unemployed Current occupational exposures/hazards: No Gender identity: Male Cognitive needs: No Hearing needs: No Vision needs: Yes Review of Systems Const All systems reviewed & are unremarkable except as noted in HPI and below Reports no additional complaints ENT Reports Normal hearing present Card Denies chest pain, Denies chest pain at rest, Denies chest pain with activity and Denies pedal edema Resp Denies cough GI Denies abdominal pain Musc Denies abnormal gait, Denies muscle cramps and Denies radiating pain into limb Skin/Breast Denies skin ulcer and Denies wounds Neuro Reports Normal hearing present and Denies abnormal gait Psych Reports no additional complaints Physical Exam Vital Signs: BMI result Body Mass Index 23.6 Const General: cooperative, healthy appearing and comfortable Orientation/consciousness: oriented to person, oriented to place and oriented to time HEENT Head: Yes normal to inspection Neck Neck: Yes normal visual inspection Carotids: no bruits Chest Chest palpation & inspection: normal inspection of the chest Resp Effort & Inspection: normal respiratory effort and able to speak in complete sentences Auscultation: clear to auscultation bilaterally, no crackles, no rales, no rhonchi and no wheezes Cardio Rate: regular rate Rhythm: regular rhythm Heart sounds: S1 normal heart sound present and S2 normal heart sound present Bruits: no carotid bruits Peripheral pulses: Peripheral pulses 2+ throughout GI Inspection: Yes normal to inspection Skin Wounds: no wounds Hair: normal Neuro General: oriented to person, oriented to place and oriented to time Cranial nerves: Yes CN's II-XII intact bilaterally and Yes Normal hearing present Cognition (Neuro): normal cognition Motor exam (neuro): 5/5 motor strength present throughout Extrem Other: venous exam: +1 edema General: No clubbing, No cyanosis and Yes edema Psych Appearance: grossly normal Mental Status: mental status grossly normal Speech and movement: Normal speech and movement present Results Reviewed Results Reviewed: Brief summary of venous insufficiency testing is as follows: right great saphenous vein: negative right small saphenous vein: negative right accessory vein: none present left great saphenous vein: negative left small saphenous vein: negative left accessory vein: none present Please note there is no evidence of any venous aneurysms or significant tortuosity Assessment & Plan Assessment & Plan (1) Lower extremity edema: Code(s): R60.0 - Localized edema Category: Medical Plan: In short patient has lower extremity edema. Unclear etiology of this and it may be multifactorial. He does have a history of congestive heart along with renal insufficiency. Venous insufficiency testing was essentially negative. We did discuss routine conservative measures including compression elevation and exercise. The patient will follow up with us on an as-needed basis. Thank you for allowing us to assist in his care. If there are any questions or concerns please do not hesitate to contact us. Coding Level of Care Code Est Pt Level 4 (06940) Diagnoses Lower extremity edema R60.0
== END 2024-01-20 09:57 | disposition home or self-care (01) ==
PROVIDERS: PCP Family Medicine; Visit Provider Surgery Vascular Surgery
DX: R60.0 Localized edema (principal)
CPT/HCPCS: 99214

== ENCOUNTER → 2024-01-20 09:09 | Outpatient (BNVA) | payer OTHER, SELFPAY | PROVIDERS: PCP Family Medicine; Visit Provider Surgery Vascular Surgery | DX: R60.0 Localized edema (principal) | CPT/HCPCS: 99212 ==

== ENCOUNTER 2024-01-21 14:21 | Outpatient (REF) | payer OTHER, SELFPAY ==
[2024-01-21 14:54] LABS: Appearance Urine Clear; Color Urine Yellow; Glucose Urine UA Negative (Negative); Leukocyte Esterase Urine Negative (Negative); Nitrite Urine Negative (Negative); PH 5.5 (5.0-9.0); Specific Gravity - Urine 1.015 (1.005-1.025); UMIC TRIGGER UA YES; Urine Blood Small (1+) (Negative); Urine Ketones Negative (Negative); Urine Protein 300 (3+) mg/dL (Neg-Trace)
[2024-01-21 14:56] LABS: Bacteria Urine None Seen (None Seen); Squamous Epithelial Cell Urine 0-2 /HPF (0-2); WBC Urine 0-5 /HPF (0-5)
[2024-01-21 15:07] LABS: Anion Gap 12 (12-20); Blood Urea Nitrogen 55 mg/dL (9-16); Calcium 9.6 mg/dL (8.4-10.2); Carbon Dioxide 23 mmol/L (22-29); Chloride 106 mmol/L (96-108); Estimated Glomerular Filt Rate 21; Glucose Random 152 mg/dL (60-115); Potassium 4.9 mmol/L (3.3-5.1); Sodium 136 mmol/L (135-145)
== END 2024-01-21 14:22 | disposition home or self-care (01) ==
LOC: HO.LAB 14:21
PROVIDERS: PCP Family Medicine; Visit Provider Internal Medicine Hypertension Specialist
DX: N18.32 Chronic kidney disease, stage 3b (principal)
CPT/HCPCS: 36415; 80048; 81001; 85025

== ENCOUNTER 2024-01-24 09:21 | Outpatient (REF) | payer OTHER, SELFPAY ==
--- NOTE | ~2024-01-24 | US_ITS ---
EXAMINATION: US ABDOMEN COMPLETE CLINICAL INFORMATION: Other specified diseases of the digestive system. Abdominal pain. COMPARISON: Renal ultrasound 10/26/2023. TECHNIQUE: Real-time imaging of the abdominal viscera. FINDINGS: PANCREAS: Unremarkable. ABDOMINAL AORTA: The proximal, mid, and distal segments are normal in caliber. INFERIOR VENA CAVA: Visualized portions are normal. LIVER: Unremarkable. The liver is normal in size. The liver contour is normal. Parenchymal echogenicity is normal. No focal hepatic lesion. There is no intrahepatic biliary duct dilatation seen. GALLBLADDER: Tiny, nonshadowing echogenicities along the gallbladder wall which may be artifactual. No large polyp. No cholelithiasis, gallbladder wall thickening, or pericholecystic free fluid to suggest acute cholecystitis. COMMON BILE DUCT: Normal in caliber measuring 0.4 cm in diameter. RIGHT KIDNEY: No hydronephrosis or renal calculi. Multiple simple appearing cysts with the largest at the upper pole measuring up to 2.8 cm, similar when compared to the prior ultrasound. Findings are not clinically significant and no dedicated follow-up imaging is recommended. The kidney measures 11.9 cm in maximum dimension. LEFT KIDNEY: Unremarkable. No hydronephrosis. No renal calculi or focal parenchymal lesions. The kidney measures 11.8 cm in maximum dimension. SPLEEN: Normal. The spleen measures 10.9 cm in maximum dimension. FREE FLUID: No ascites. Partially visualized right-sided pleural effusion and pericardial effusion. US/US abdomen complete IMPRESSION: 1. No cholelithiasis, gallbladder wall thickening, or pericholecystic free fluid to suggest acute cholecystitis. 2. Partially visualized right-sided pleural effusion and pericardial effusion. Electronically signed by: Petr Gomez MD 02/18/2024 03:41 PM EDT
== END 2024-01-24 09:22 | disposition home or self-care (01) ==
LOC: HO.US 09:21
PROVIDERS: PCP Family Medicine; Visit Provider Internal Medicine Hypertension Specialist
DX: K92.89 Other specified diseases of the digestive system (principal); R10.9 Unspecified abdominal pain
CPT/HCPCS: 76700

== ENCOUNTER 2024-02-02 08:25 | Outpatient (AMB) | payer OTHER, SELFPAY ==
--- NOTE | 2024-02-02 08:29 | A.OFFVIS_ITS ---
Vital Signs 02/02/24 08:32 Height 6 ft Weight 169 lb 12.095 oz BMI 23.0 BP 170/90 H Blood Pressure Location Rt brachial Position Sitting Pulse 76 Pulse Source Pulse Oximeter Intake Visit Reasons: DM/CONFIRMED Intake Note: Patient presents today to re-establish treatment for Type Diabetes Mellitus: Last Diabetic eye exam was on: 02/02/2024 Last Podiatry exam was on: Does not see a Underwater Trapper Most recent HbA1c: 5.8%, 01/06/2024, Patient stated was done at the PCP Random Glucose- 100 mg/dL, Today Carburetor Specialist Required: No Accompanied by: Spouse Allergies naproxen Allergy (Severe, Verified 02/02/24 08:34) Hives gabapentin Adverse Reaction (Verified 02/02/24 08:34) Photosensitivity HPI Comments Details: 54 y/o male presents for diabetes consultation Medical history: CHF, CKD stage 4, htn, anemia Diabetes diagnosed years ago per patient Current medications: Lantus 14 units-taking 12 units, lispro sliding scale. Has POC A1C last month in PCP office and reports 5.8% though not logged-A1C in 08/17 9.6% was having a lot of health problems at the time. Checking glucose with traditional glucometer 4x/day. Not sure if he wants CGM. He was having some lows but this resolved when he went down to 12 units. Sees ophtho-UTD Sees renal, Dr Cohen monthly Seeing Dr Mora, hematology oncology for anemia and procrit Pending GI consult for anemia, abdominal bloating Sees ENT for vocal cord paralysis. . Has never had a colonoscopy. ROS CONSTITUTIONAL: Denies weight loss, fever and chills. HEENT: Denies changes in vision and hearing. RESPIRATORY: Denies SOB and cough. CV: Denies palpitations and CP GI: Denies abdominal pain, nausea, vomiting and diarrhea. : Denies dysuria and urinary frequency. MSK: Denies new myalgia and joint pain. SKIN: Denies rash and pruritus. NEUROLOGICAL: Denies headache PSYCHIATRIC: Denies recent changes in mood. PHYSICAL EXAM: GENERAL: Alert and oriented x 3. NAD EYES: EOMI. Anicteric. HENT: Moist mucous membranes. No scleral icterus. Voice is hoarse LUNGS: Clear to auscultation bilaterally. CARDIOVASCULAR: Regular rate and rhythm. ABDOMEN: Soft, non-tender +bs EXTREMITIES: No edema. Non-tender. SKIN: No rashes or lesions. Warm. NEUROLOGIC: No focal neurological deficits. CN II-XII grossly intact PSYCHIATRIC: Cooperative. Appropriate mood and affect [facility] Medical History Gas bloat syndrome Herniated disc, cervical Back disorder Arthritis Cardiomyopathy High blood pressure Edema Pneumothorax Surgical History [place] teeth extracted Family History Mother Cancer Father Cancer Social History Household Members: Friend(s) Housing: House Are you a primary care coordinator to a significant other at home: No Do you presently have visiting nurse or other home services: No 75 years or older and lives alone: No Alcohol intake: never Patient Tobacco Use Status: Never used Tobacco e-Cigarette/Vaping Use: Never Used service: No Current occupational status: unemployed Current occupational exposures/hazards: No Gender identity: Male Cognitive needs: No Hearing needs: No Vision needs: Yes Physical Exam Vital Signs: Last Vital Signs BP 170/90 H 02/02/24 08:32 BMI result Body Mass Index 23.0 Results Reviewed Results Reviewed: Laboratory Last Values Glucose (Clinic) 100 mg/dL (60-115) 02/02/24 08:39 Assessment & Plan Assessment & Plan (1) Diabetes mellitus type 2 with complications: Code(s): E11.8 - Type 2 diabetes mellitus with unspecified complications Category: Medical Plan: Controlled on current medications. Will add jardiance. Long discussion about potential side effects. Start 10mg daily. Decrease lantus to 8 units, continue sliding scale with meals. Can return as needed to this office. Has follow up regularly with PCP Medications: New empagliflozin (Jardiance) 10 mg PO DAILY 90 tabs 3RF insulin glargine (Lantus U-100 Insulin) 8 units (0.08 mL) subcut QPM 10 mL 3RF Discontinued insulin glargine (Lantus Solostar U-100 Insulin) Discontinued Reason: Doctor's Order 14 units (0.14 mL) subcut QPM 90 days 15 mL 0RF E11.8 - Type 2 diabetes mellitus with unspecified complications Coding Level of Care Code Est Pt Level 4 (23370) Diagnoses Diabetes mellitus type 2 with complications E11.8
[2024-02-02 08:32] VITALS: BP 170/90; PULSE 76; BMI 23.0
[2024-02-02 08:42] LABS: Glucose, Whole Blood 100 mg/dL (60-115)
== END 2024-02-02 09:17 | disposition home or self-care (01) ==
PROVIDERS: PCP Family Medicine; Visit Provider Internal Medicine
DX: E11.8 Type 2 diabetes mellitus with unspecified complications (principal)

== ENCOUNTER → 2024-02-02 08:25 | Outpatient (BNVA) | payer OTHER, SELFPAY | PROVIDERS: PCP Family Medicine; Visit Provider Internal Medicine | DX: E11.22 Type 2 diabetes mellitus with diabetic chronic kidney disease (principal); N18.4 Chronic kidney disease, stage 4 (severe) | CPT/HCPCS: 82947; 99212 ==

== ENCOUNTER 2024-02-07 11:24 | Outpatient (AMB) | payer OTHER, SELFPAY ==
--- NOTE | 2024-02-07 11:26 | MHC.PC.OV ---
Vital Signs 02/07/24 11:31 02/07/24 11:51 Height 6 ft Weight 172 lb BMI 23.3 BP 158/80 H 160/68 H Blood Pressure Location Lt brachial Lt brachial Position Sitting Sitting Respiration 14 Pulse 67 Pulse Source Pulse Oximeter Pulse Oximetry (%) 98 Oxygen Delivery Method Room Air Intake Visit Reasons: f/u hypertension Intake Note: follow up hypertension and diabetes Allergies naproxen Allergy (Severe, Verified 02/07/24 11:38) Hives gabapentin Adverse Reaction (Verified 02/07/24 11:38) Photosensitivity Medication List - Last Reconciled 02/07/24 by Lizeth Sainz, CREDIT AND COLLECTIONS ANALYST- amlodipine 5 mg PO DAILY 90 days ascorbate calcium (vitamin C) 500 mg PO DAILY blood sugar diagnostic (FreeStyle Test strips) Test blood sugar 4 times a day As directed, 90 days calcium acetate 667 mg PO DAILY carvedilol 12.5 mg (2 x 6.25 mg) PO DAILY 90 days clobetasol 0.05% 0.05 appl topical DAILY PRN empagliflozin (Jardiance) 10 mg PO DAILY ferrous sulfate 325 mg PO DAILY 90 days hydralazine 100 mg PO QID insulin glargine (Lantus U-100 Insulin) 8 units (0.08 mL) subcut QPM insulin lispro 1 sliding scale dose subcut QIDACHS isosorbide mononitrate ER 30 mg PO DAILY 90 days lancets (FreeStyle Lancets) As directed magnesium 250 mg PO DAILY oxycodone-acetaminophen 5-325 mg (Percocet) 1 tab PO Q8H PRN 30 days pen needle, diabetic (BD Ultra-Fine Mini Pen Needle) As directed rosuvastatin 10 mg PO DAILY 90 days simethicone 80 mg PO BID-QID PRN 30 days torsemide 20 mg PO DAILY 90 days Tobacco use date assessed: 11/26/23 Dental Screening Dental Screen Date: 09/21/23 HPI HPI Comments History of Present Illness Details 54-year-old male with MDD, SMITH, CHF, pneumothorax status post chest tube with lung collapse, vocal cord paralysis, PVD with ulceration bilateral lower extremities, diabetes type 2 with complication, peripheral nueropathy Here today for HTN fu: At last OV with PCP: ?increase?hydralazine?to?4?times?a?day?and?continue?amlodipine. Note reviewed. States that he is taking all medications as directed. Monitors blood pressure at home and reports that it is still not at goal. He is also managed by Nephrology. The last consult note was reviewed today. He denies any chest pain, headache, visual disturbances. When asked about any shortness of breath or trouble breathing, he states that this is chronic for him related to abdominal bloating. He does not think that his breathing is any worse. He denies any orthopnea, wheezing, cough. He denies fever, chills, feeling sick. Exam: awake alert, chronically ill appearing, not acutely ill accompanied by Shobha speaking in whispered voice RRR, 2/6 systolic murmur LS very faint in RLL otherwise clear/dim throughout BLE hairless, unable to palpate pedal pulses, chronic vascular discoloration Plan increase norvasc from 5mg to 10mg /day, cont to monitor BP at home, renal notes indicate goal <130/80 Flu shot today CXR today - see results below. Discussed w/ PCP. Increase torsemide 20mg from qD to BID x 7 days then resume QD dosing. Check CT of chest. FU in office next week, sooner PRN Read from 01/24/24 US Abd n/a- message sent to manager trust Sooner f/u with Renal, message to be sent: See below sent to Nephrology: Hi I saw him today for Dr Youssef, his BP remains above goal on current meds I have increased his Norvasc from 5mg QD to 10mg QD The 01/24/24 ABD US has no read; I sent urgent message to Rad Inspector [employer] to expedite this. Please arrange f/u with Dr Grover for his BP. Next visit not until February. Thank you, Lizeth called at [phone] w results & plan. [facility] Medical History Gas bloat syndrome Herniated disc, cervical Back disorder Arthritis Cardiomyopathy High blood pressure Edema Pneumothorax Surgical History [place] teeth extracted Family History Mother Cancer Father Cancer Social History Housing: House Are you a primary neurocritical care physician to a significant other at home: No Do you presently have visiting nurse or other home services: No Alcohol intake: never Patient Tobacco Use Status: Never used Tobacco e-Cigarette/Vaping Use: Never Used service: No Current occupational status: unemployed Current occupational exposures/hazards: No Gender identity: Male Cognitive needs: No Hearing needs: No Vision needs: Yes Questionnaire Thrive Questionnaire Date Thrive assessed: 08/18/23 SMITH-7 AMB Questionnaire SMITH-7 Date SMITH - 7 assessed: 08/18/23 Source: Developed by Drs. Herve Villagomez, Jillian Camargo, Geo Koroma and colleagues, with an educational nicole from [employer]. Physical exam (Primary Care) Vital Signs: Last Vital Signs Pulse 67 02/07/24 11:31 Resp 14 02/07/24 11:31 BP 160/68 H 02/07/24 11:51 Pulse Ox 98 02/07/24 11:31 Oxygen Delivery Method Room Air 02/07/24 11:31 BMI result Body Mass Index 23.3 Tobacco/Smoking Status: Tobacco use Status Tobacco use date assessed 11/26/23 02/07/24 11:29 Patient Tobacco Use Status Never used Tobacco 02/07/24 11:29 e-Cigarette/Vaping Use Never Used 02/07/24 11:29 Thrive Assessment: Date of Thrive Assessment Date Thrive assessed 08/18/23 02/07/24 11:29 Office Procedures Flu Questionnaire Does the patient have a severe egg allergy?: No Does the patient have severe life threatening allergies?: No Does the patient have a fever or illness today?: No Has the patient ever had Guillain-Rivers[place] Syndrome?: No Has the patient ever had any past reaction to a flu shot?: No Immunizations Fluarix Triv 4528-6754 (PF) 45 mcg (15 mcg x 3)/0.5 mL IM syringe Performing Provider: PANCHO Tapia Performing Location: [facility] Administered by: Sharri Cerda RN on 02/07/24 11:54 Dose Route Admin Location Dispensed Lot Number Expiration Date [facility] Fruit Dumper 0.5 mL IM Right Deltoid 0.5 mL [id number] 10/23/24 [id number] [employer] VIS Given Date VIS Provided VIS Publication Date 02/07/24 Single Vaccine 20 Eligibility Eligibility Date Funding Source Not [facility] Eligible 02/07/24 Private Results Reviewed Results Reviewed: [facility] [address] [place] [address] XRay Report Signed Patient: Mega Oshea MR#: [id number] : 1970 Acct:[id number] Age/Sex: 54 / M ADM Date: 02/07/24 Loc: HO.HMGCX Attending Dr: Lizeth DELEON Ordering Physician: Lizeth Sainz Date of Service: 02/07/24 Procedure(s): XR chest 2V Accession Number(s): [id number] cc: Shmuel Youssef MD; Lizeth Sainz~ EXAMINATION: XR CHEST CLINICAL INFORMATION: Shortness of breath. Decreased breath sounds at the right base. Congestive heart failure. COMPARISON: Abdominal ultrasound 01/24/2024 TECHNIQUE: 2 views of the chest were obtained. FINDINGS: There is a moderate-sized subpulmonic right pleural effusion. Recent abdominal ultrasound demonstrated a small right pleural effusion. Interval progression. There is a small left pleural effusion. No effusion on recent left upper quadrant imaging. Some crowding of bronchovascular structures at the right base underlying the effusion likely compressive atelectasis; appearance is nonspecific. There is prominence of the central pulmonary vasculature suggesting vascular hypertension. The cardiac silhouette is enlarged, greater than half the cardiothoracic ratio. No Lam's lines seen to suggest interstitial pulmonary edema. No mediastinal mass or adenopathy. Nonobstructive gas pattern. Idiopathic scoliosis. No acute osseous finding. XR/XR chest 2V IMPRESSION: 1. A moderate size, progressive subpulmonic right pleural effusion. 2. A new small left pleural effusion. 3. Prominent cardiac silhouette and evidence of venous hypertension. No overt interstitial edema. Electronically signed by: Dat Ng MD 02/07/2024 01:52 PM EDT Dictated By: Dat Ng MD Signed By: <Electronically signed by Dat Ng MD in OV> 02/07/24 1352 DD/ 1316 TD/TT: 02/07/24 1320 Percussion Tuner: MARIA ELENA Coding Level of Care Code Est Pt Level 5 (16939) Complex EM visit Add On G2211 Diagnoses Chronic combined systolic and diastolic congestive heart failure I50.42 Heart failure chronicity: chronic Heart failure type: combined systolic and diastolic Abnormal lung sounds R09.89 Diabetic nephropathy associated with type 2 diabetes mellitus E11.21 Diabetes mellitus type: type 2 Hypertension due to endocrine disorder I15.2 Hypertension type: secondary to endocrine disorders Pleural effusion, bilateral J90 Pleural effusion due to CHF (congestive heart failure) I50.9 Assessment & Plan Assessment & Plan (1) CHF (congestive heart failure): Code(s): I50.9 - Heart failure, unspecified Category: Medical Qualifiers: Heart failure chronicity: chronic Heart failure type: combined systolic and diastolic Qualified Code(s): I50.42 - Chronic combined systolic (congestive) and diastolic (congestive) heart failure (2) Abnormal lung sounds: Code(s): R09.89 - Other specified symptoms and signs involving the circulatory and respiratory systems Category: Medical (3) Diabetic nephropathy: Code(s): E11.21 - Type 2 diabetes mellitus with diabetic nephropathy Category: Medical Qualifiers: Diabetes mellitus type: type 2 Qualified Code(s): E11.21 - Type 2 diabetes mellitus with diabetic nephropathy (4) High blood pressure: Code(s): I10 - Essential (primary) hypertension Category: Medical Qualifiers: Hypertension type: secondary to endocrine disorders Qualified Code(s): I15.2 - Hypertension secondary to endocrine disorders (5) Pleural effusion, bilateral: Code(s): J90 - Pleural effusion, not elsewhere classified Category: Medical (6) Pleural effusion due to CHF (congestive heart failure): Code(s): I50.9 - Heart failure, unspecified Category: Medical Plan: . Plan . Orders: Orders CT chest wo IV con Today J90 - Pleural effusion, not elsewhere classified Influenza [id number] Immunization Today Z23 - Encounter for immunization XR chest 2V Today I50.42 - Chronic combined systolic (congestive) and diastolic (congestive) heart failure, R09.89 - Other specified symptoms and signs involving the circulatory and respiratory systems Medications: Changed From amlodipine 5 mg PO DAILY 90 days 90 tabs 1RF To amlodipine 10 mg (2 x 5 mg) PO DAILY 90 days 180 tabs 1RF
[2024-02-07 11:31] VITALS: BP 158/80; PULSE 67; RESP 14; O2SAT 98; BMI 23.3
[2024-02-07 11:51] VITALS: BP 160/68
== END 2024-02-07 12:03 | disposition home or self-care (01) ==
PROVIDERS: PCP Family Medicine; Visit Provider Nurse Practitioner Family
DX: I50.42 Chronic combined systolic (congestive) and diastolic (congestive) heart failure (principal); E11.21 Type 2 diabetes mellitus with diabetic nephropathy; I50.9 Heart failure, unspecified; R09.89 Other specified symptoms and signs involving the circulatory and respiratory systems; I15.2 Hypertension secondary to endocrine disorders; J90 Pleural effusion, not elsewhere classified

== ENCOUNTER → 2024-02-07 11:24 | Outpatient (BNVA) | payer OTHER, SELFPAY | PROVIDERS: PCP Family Medicine; Visit Provider Nurse Practitioner Family | DX: Z23 Encounter for immunization (principal); I15.2 Hypertension secondary to endocrine disorders; E11.21 Type 2 diabetes mellitus with diabetic nephropathy; I50.42 Chronic combined systolic (congestive) and diastolic (congestive) heart failure; R09.89 Other specified symptoms and signs involving the circulatory and respiratory systems; J90 Pleural effusion, not elsewhere classified | CPT/HCPCS: 90471; 90656; 99212 ==

== ENCOUNTER 2024-02-07 12:39 | Outpatient (REF) | payer OTHER, SELFPAY ==
--- NOTE | ~2024-02-07 | XR_ITS ---
EXAMINATION: XR CHEST CLINICAL INFORMATION: Shortness of breath. Decreased breath sounds at the right base. Congestive heart failure. COMPARISON: Abdominal ultrasound 01/24/2024 TECHNIQUE: 2 views of the chest were obtained. FINDINGS: There is a moderate-sized subpulmonic right pleural effusion. Recent abdominal ultrasound demonstrated a small right pleural effusion. Interval progression. There is a small left pleural effusion. No effusion on recent left upper quadrant imaging. Some crowding of bronchovascular structures at the right base underlying the effusion likely compressive atelectasis; appearance is nonspecific. There is prominence of the central pulmonary vasculature suggesting vascular hypertension. The cardiac silhouette is enlarged, greater than half the cardiothoracic ratio. No Lam's lines seen to suggest interstitial pulmonary edema. No mediastinal mass or adenopathy. Nonobstructive gas pattern. Idiopathic scoliosis. No acute osseous finding. XR/XR chest 2V IMPRESSION: 1. A moderate size, progressive subpulmonic right pleural effusion. 2. A new small left pleural effusion. 3. Prominent cardiac silhouette and evidence of venous hypertension. No overt interstitial edema. Electronically signed by: Dat Ng MD 02/07/2024 01:52 PM EDT
== END 2024-02-07 12:40 | disposition home or self-care (01) ==
LOC: HO.HMGCX 12:39
PROVIDERS: PCP Family Medicine; Visit Provider Nurse Practitioner Family
DX: I50.42 Chronic combined systolic (congestive) and diastolic (congestive) heart failure (principal); R09.89 Other specified symptoms and signs involving the circulatory and respiratory systems
CPT/HCPCS: 71046

== ENCOUNTER 2024-02-15 10:47 | Outpatient (AMB) | payer OTHER, SELFPAY ==
--- NOTE | 2024-02-15 10:47 | HO.NEPHOV ---
Vital Signs 02/15/24 10:50 Height 6 ft Weight 172 lb BMI 23.3 Intake Visit Reasons: Med Changes Fibreglass Laminator Required: No Accompanied by: Spouse Allergies naproxen Allergy (Severe, Verified 02/15/24 10:47) Hives gabapentin Adverse Reaction (Verified 02/15/24 10:47) Photosensitivity HPI Comments Details: Mega is a 53 -year-old man with a history of longstanding diabetes mellitus. He has been referred for renal evaluation since his serum creatinine is around 2.1 mg/dL. He was seen by vascular surgeon Dr. Avery and subsequently referred due to skin lesions Mega primarily complains of leg pain. He has not on any NSAIDs. 11/05/23 Doing better Eye sight is better post retinal injection 01/10/2024. Blood sugar is better controlled. He is waiting for surgery on February 08. Has abdominal discomfort on and off Has been referred for GI evaluation for possible endoscopy 02/15/2024. Patient was unable to come into the office today. This is a tele visit. Recently blood pressure elevated Amlodipine was increased by PCP from 5 mg to 10 mg. Subsequently he developed diarrhea and therefore he was cut back to 5 mg. Continues her shortness of breath on exertion. The recent imaging studies showed pleural effusion. He is waiting for a CT scan of the chest Ultrasound of the kidneys were done but results are not reported yet -it has been almost 4 weeks since the imaging. [facility] Medical History Gas bloat syndrome Herniated disc, cervical Back disorder Arthritis Cardiomyopathy High blood pressure Edema Pneumothorax Surgical History [place] teeth extracted Family History Mother Cancer Father Cancer Social History Household Members: Friend(s) Housing: House Are you a primary primary care provider to a significant other at home: No Do you presently have visiting nurse or other home services: No 75 years or older and lives alone: No Alcohol intake: never Patient Tobacco Use Status: Never used Tobacco e-Cigarette/Vaping Use: Never Used service: No Current occupational status: unemployed Current occupational exposures/hazards: No Gender identity: Male Cognitive needs: No Hearing needs: No Vision needs: Yes Physical Exam Vital Signs: BMI result Body Mass Index 23.3 Telehealth Telehealth Telehealth Platform: Telephone Location of provider rendering services: practice address Location of patient: address on file Telehealth method: voice only Patient verbally consented to treatment: Yes Patient verbally consented to billing insurance company: Yes Minutes spent on Phone/Video with Pt.: 14 Results Reviewed Nephrology Results: Hgb 9.7 g/dl (14.0-18.0) L 01/21/24 WBC 5.8 X10*3/uL (4.8-10.8) 01/21/24 Plt Count 248 X10*3/uL (160-400) 01/21/24 Sodium 136 mmol/L (135-145) 01/21/24 Potassium 4.9 mmol/L (3.3-5.1) 01/21/24 Chloride 106 mmol/L (96-108) 01/21/24 Carbon Dioxide 23 mmol/L (22-29) 01/21/24 BUN 55 mg/dL (9-16) H 01/21/24 Creatinine 3.10 mg/dL (0.5-1.4) H 01/21/24 Calcium 9.6 mg/dL (8.4-10.2) 01/21/24 Urine Protein 300 (3+) mg/dL (Neg-Trace) H 01/21/24 Assessment & Plan Assessment & Plan (1) CKD (chronic kidney disease) stage 3, GFR 30-59 ml/min: Code(s): N18.30 - Chronic kidney disease, stage 3 unspecified Category: Medical Qualifiers: Chronic kidney disease stage 3 subtype: stage 3b (GFR 30-44) Qualified Code(s): N18.32 - Chronic kidney disease, stage 3b (2) Anemia: Code(s): D64.9 - Anemia, unspecified Category: Medical (3) Gas bloat syndrome: Code(s): K92.89 - Other specified diseases of the digestive system Category: Medical Plan . Mega has CKD 3 with a baseline creatinine around 2.0-2.2 mg/dL. He has nephrotic range proteinuria in the setting of longstanding diabetes mellitus. Probably has underlying diabetic nephropathy. Nondiabetic causes seem unlikely based on serology Creatinine is bumped up to 3.1 most likely due to progression of underlying disease. maintain blood pressure less than 130/80 and A1c less than 7%. He would benefit from SGLT -2 inhibitors Blood pressure is suboptimal based on history. This may be related to excessive fluid Given the x-ray finding I would agree with increasing torsemide from 20 mg to 40 mg a day. Stay on low-sodium diet. Await CT of the chest and may require thoracentesis if he has persistent dyspnea and if he fails to respond to oral diuretics. Continue to avoid nephrotoxic agents including NSAIDs. Anemia- most likely due to EPO deficiency Follow-up with Hyperparathyroidism/Hyperphosphatemia Calcium acetate 1 tab with largest meal( dinner) and stay on low Phos diet- No cola drinks. Minimize nuts/meat Coding Level of Care Code Tele Est Pt Level 3 (09665) Diagnoses Stage 3b chronic kidney disease N18.32 Chronic kidney disease stage 3 subtype: stage 3b (GFR 30-44) Anemia D64.9 Gas bloat syndrome K92.89
[2024-02-15 10:50] VITALS: BMI 23.3
== END 2024-02-15 12:16 | disposition home or self-care (01) ==
PROVIDERS: PCP Family Medicine; Visit Provider Internal Medicine Hypertension Specialist
DX: N18.32 Chronic kidney disease, stage 3b (principal); D64.9 Anemia, unspecified; K92.89 Other specified diseases of the digestive system
CPT/HCPCS: 99213

== ENCOUNTER → 2024-02-15 10:47 | Outpatient (BNVA) | payer OTHER, SELFPAY | PROVIDERS: PCP Family Medicine; Visit Provider Internal Medicine Hypertension Specialist ==

== ENCOUNTER 2024-02-17 13:59 | Outpatient (AMB) | payer OTHER, SELFPAY ==
--- NOTE | 2024-02-17 14:27 | MHC.PC.OV ---
Vital Signs 02/17/24 14:29 Height 6 ft Weight 163 lb 2 oz BMI 22.1 BP 134/65 Blood Pressure Location Lt brachial Position Sitting Respiration 16 Pulse 96 Pulse Source Pulse Oximeter Temp 97.2 F Temp Source Temporal Artery Scan Pulse Oximetry (%) 99 Oxygen Delivery Method Room Air Intake Visit Reasons: 1 week 30 min fu Fr G or Me HTN/CXR Intake Note: f/u for HTN an CXR Allergies naproxen Allergy (Severe, Verified 02/17/24 14:27) Hives gabapentin Adverse Reaction (Verified 02/17/24 14:27) Photosensitivity Tobacco use date assessed: 11/26/23 Dental Screening Dental Screen Date: 09/21/23 HPI 1 week 30 min fu Fr G or Me HTN/CXR HPI Details 54 y/o male presents to f/u hypertension. Had seen Lizeth Sainz for CHF, abnormal lung sounds, pleural effusion. CT ordered but does not seem to have been done yet. Chest x-ray shows: XR/XR chest 2V IMPRESSION: 1. A moderate size, progressive subpulmonic right pleural effusion. 2. A new small left pleural effusion. 3. Prominent cardiac silhouette and evidence of venous hypertension. No overt interstitial edema. Electronically signed by: Dat Ng MD 02/07/2024 01:52 PM EDT RP They note breathing has improved. [facility] Medical History Gas bloat syndrome Herniated disc, cervical Back disorder Arthritis Cardiomyopathy High blood pressure Edema Pneumothorax Surgical History [place] teeth extracted Family History Mother Cancer Father Cancer Social History Household Members: Friend(s) Housing: House Are you a primary career placement services counselor to a significant other at home: No Do you presently have visiting nurse or other home services: No Alcohol intake: never Patient Tobacco Use Status: Never used Tobacco e-Cigarette/Vaping Use: Never Used service: No Current occupational status: unemployed Current occupational exposures/hazards: No Gender identity: Male Cognitive needs: No Hearing needs: No Vision needs: Yes Questionnaire PHQ-9 Over the last 2 weeks, how often have you been bothered by any of the following problems? 1. Little interest or pleasure in doing things: not at all Source: Developed by Drs. Herve Villagomez, Jillian Camargo, Geo Koroma and colleagues, with an educational nicole from [employer]. Thrive Questionnaire Date Thrive assessed: 08/18/23 I am a: Parent/Caregiver What is your living situation today?: I have a steady place to live Within the past 12 months, did the food you bought not last and you didn't have the money to get more?: Never true Within the past 12 months, did you worry whether your food would run out before you got money to buy more?: Never true Do you have trouble paying for medicines?: No Do you have trouble getting transportation to medical appointments?: No Do you have trouble paying your heating and electricity bill?: No Do you have trouble taking care of your child, family member or friend?: No Do you have trouble with day-to-day activities such as bathing, preparing meals, shopping, managing finances, etc.?: No Are you currently unemployed and looking for a job?: No Are you interested in more education?: No Please select the resources that you would like help with: None Currently or been in a relationship where the following occur: I choose not to answer THRIVE Score: 0 AUDIT C Alcohol Use Questionnaire (AUDIT-C) 1. How often do you have a drink containing alcohol?: Never Total Score: 0 SMITH-7 AMB Questionnaire SMITH-7 Date SMITH - 7 assessed: 08/18/23 Feeling nervous, anxious, or on edge: 0 = Not at all Not being able to stop or control worryin = Not at all Worrying too much about different things: 0 = Not at all Trouble relaxin = Not at all Being so restless that it is hard to sit still: 0 = Not at all Becoming easily annoyed or irritable: 0 = Not at all Feeling afraid as if something awful might happen: 0 = Not at all Total SMITH-7 score (0-4 normal; 5-9 mild; 10-14 moderate; 15-21 severe): 0 Source: Developed by Drs. Herve Villagomez, Jillian Camargo, Geo Koroma and colleagues, with an educational nicole from [employer]. Review of Systems Const Denies chills, Denies fatigue, Denies fever(s), Denies headache(s) and Denies weakness ENT Denies dizziness and Denies headache(s) Card Denies dyspnea Resp Denies cough, Denies dyspnea, Denies wheezing and Denies other (shortness of breath) Musc Denies numbness and Denies tingling Neuro Denies dizziness, Denies headache(s), Denies numbness, Denies tingling and Denies weakness Psych Denies anxiety and Denies depression Endo Denies fatigue Aller/Immun Denies wheezing Physical exam (Primary Care) Vital Signs: Last Vital Signs Temp 97.2 F 02/17/24 14:29 Pulse 96 02/17/24 14:29 Resp 16 02/17/24 14:29 BP 134/65 02/17/24 14:29 Pulse Ox 99 02/17/24 14:29 Oxygen Delivery Method Room Air 02/17/24 14:29 BMI result Body Mass Index 22.1 Tobacco/Smoking Status: Tobacco use Status Tobacco use date assessed 11/26/23 02/17/24 14:31 Patient Tobacco Use Status Never used Tobacco 02/17/24 14:31 e-Cigarette/Vaping Use Never Used 02/17/24 14:31 Thrive Assessment: Date of Thrive Assessment Date Thrive assessed 08/18/23 02/17/24 14:31 Currently or been in a relationship where the following occur: I choose not to answer Const General: well developed; No acute distress Nutritional Appearance: well nourished Orientation/consciousness: patient oriented x3 [facility] Head: Yes normocephalic and Yes atraumatic Eyes General: appearance normal, both eyes and all related structures Pupils: Equal, round and reactive pupils present EOM: EOMs intact bilaterally Resp Effort & Inspection: normal respiratory effort Neuro General: patient oriented x3 and gait normal Cranial nerves: Yes Equal, round and reactive pupils present Psych Affect: normal affect Coding Level of Care Code Est Pt Level 3 (76922) Est Pt Prev Care 40-64y(97259) Diagnoses Pleural effusion, bilateral J90 Abnormal lung sounds R09.89 Chronic combined systolic and diastolic congestive heart failure I50.42 Heart failure chronicity: chronic Heart failure type: combined systolic and diastolic Lower extremity edema R60.0 Assessment & Plan Assessment & Plan (1) Pleural effusion, bilateral: Code(s): J90 - Pleural effusion, not elsewhere classified Category: Medical Plan: Ongoing?shortness?of?breath?and?chest?discomfort Rhonchi?at?bilateral?bases?on?auscultation Chest?x-ray?had?shown?pleural?effusions. ?He?has?not?gotten?scheduled?for?CT?scan Will?get?a?chest?x-ray?stat?and?I?have?asked?for?CT?scan?to?be?expedited Continue?torsemide?20?mg?b.i.d. If?pleural?effusions?are?worsening,?he?may?need?thoracentesis (2) Abnormal lung sounds: Code(s): R09.89 - Other specified symptoms and signs involving the circulatory and respiratory systems Category: Medical Plan: As above (3) CHF (congestive heart failure): Code(s): I50.9 - Heart failure, unspecified Category: Medical Qualifiers: Heart failure chronicity: chronic Heart failure type: combined systolic and diastolic Qualified Code(s): I50.42 - Chronic combined systolic (congestive) and diastolic (congestive) heart failure Plan: Continue?torsemide Check?labs?including?BNP Will?follow-up?on?CT?scan?in?discuss?with?patient?next?week Aviod Sodium/Salt (4) Lower extremity edema: Code(s): R60.0 - Localized edema Category: Medical Plan: Minimal edema currently Continue Torsemide Plan Lower?extremities?without?significant?edema?now.??Continue?elevating?leg Avoid?salt/sodium Avoid?NSAIDs Check?BNP?and?labs?including?renal?function?and?liver?enzymes Orders: Orders CT chest wo IV con 02/07/24 J90 - Pleural effusion, not elsewhere classified B Type Natriuretic Peptide Today I50.9 - Heart failure, unspecified Complete Blood Count Auto Diff Today Z00.00 - Encounter for general adult medical examination without abnormal findings Comprehensive Met. Panel Today I50.42 - Chronic combined systolic (congestive) and diastolic (congestive) heart failure TSH reflex Free T4 Today Z00.00 - Encounter for general adult medical examination without abnormal findings
[2024-02-17 14:29] VITALS: BP 134/65; PULSE 96; RESP 16; TEMP 36.2; O2SAT 99; BMI 22.1
== END 2024-02-17 15:40 | disposition home or self-care (01) ==
PROVIDERS: PCP Family Medicine; Visit Provider Family Medicine
DX: I50.42 Chronic combined systolic (congestive) and diastolic (congestive) heart failure (principal); J90 Pleural effusion, not elsewhere classified; R09.89 Other specified symptoms and signs involving the circulatory and respiratory systems; R60.0 Localized edema

== ENCOUNTER → 2024-02-17 13:59 | Outpatient (BNVA) | payer OTHER, SELFPAY | PROVIDERS: PCP Family Medicine; Visit Provider Family Medicine | DX: J90 Pleural effusion, not elsewhere classified (principal); R09.89 Other specified symptoms and signs involving the circulatory and respiratory systems; I50.42 Chronic combined systolic (congestive) and diastolic (congestive) heart failure; R60.0 Localized edema | CPT/HCPCS: 99212 ==

== ENCOUNTER 2024-02-18 13:47 | Outpatient (REF) | payer OTHER, SELFPAY ==
--- NOTE | ~2024-02-18 | CT_ITS ---
EXAMINATION: CT CHEST WITHOUT CONTRAST CLINICAL INFORMATION: Pleural effusions. COMPARISON: Chest radiograph done earlier the same day. TECHNIQUE: Multidetector volumetric CT imaging of the chest was done. Axial MIP volume rendering provided. Sagittal and coronal reformatted images were obtained. This CT examination was performed using dose optimization techniques as appropriate, variously including the following: *Automated exposure control *Adjustment of mA and/or kV according to patient size (this includes techniques or standardized protocols for targeted exams where dose is matched to indication/reason for exam; i.e. extremities or head) *Use of iterative reconstruction technique DLP: 188 mGy-cm FINDINGS: SHOWER MAID: Small bilateral pleural effusions, right greater than left. LUNGS: Linear subpleural scarring within the anterior aspect of the right middle lobe. No confluent airspace consolidation. No large pulmonary nodule or mass. The central airways are patent. MEDIASTINUM: Borderline cardiomegaly. Trace pericardial effusion. Mild dilatation of the ascending thoracic aorta measuring up to 4.1 cm. Subcentimeter superior mediastinal lymph nodes. Evaluation somewhat limited without IV contrast. Unremarkable thyroid. CORONARY ARTERY CALCIFICATION: Present. PLEURA: Small to moderate right and trace left-sided pleural effusions. No pneumothorax. AXILLA: No lymphadenopathy. UPPER ABDOMEN: Unremarkable. OSSEOUS STRUCTURES: Unremarkable. CT/CT chest wo IV con IMPRESSION: 1. Small to moderate right and trace left-sided pleural effusions. 2. Linear subpleural scarring within the anterior aspect of the right middle lobe. No confluent airspace consolidation. 3. Borderline cardiomegaly with a trace pericardial effusion. 4. Mild dilatation of the ascending thoracic aorta measuring up to 4.1 cm. Fleischner guidelines were followed. Electronically signed by: Petr Gomez MD 02/18/2024 03:41 PM EDT
[2024-02-18 14:29] LABS: MANUAL DIFF FLAG NO
[2024-02-18 14:33] LABS: Basophils Percent Auto 0.9 % (0-2); Eosinophils Absolute Auto 0.4 X10*3/uL (0.0-0.4); Eosinophils Percent Auto 8.1 % (0-4); Hematocrit 33.2 % (42.0-52.0); Hemoglobin 10.7 g/dl (14.0-18.0); Imm Gran Abs Auto 0.02 X10*3/uL (0.00-0.03); Imm Gran Pct Auto 0.4 % (0.0-0.4); Lymphocytes Absolute Auto 0.6 X10*3/uL (1.2-4.9); Lymphocytes Percent Auto 13.1 % (20-40); Mean Corpuscular HGB Conc 32.2 g/dl (31.0-36.0); Mean Corpuscular Hemoglobin 25.1 pg (27.0-33.0); Mean Corpuscular Volume 77.8 fL (80.0-98.0); Mean Platelet Volume 9.3 fL (9.4-12.4); Monocytes Absolute Auto 0.3 X10*3/uL (0.1-1.2); Monocytes Percent Auto 6.3 % (2-11); Neutrophils Absolute Auto 3.3 x10*3/uL (2.0-8.3); Neutrophils Percent Auto 71.2 % (45-73); Platelet Count 212 X10*3/uL (160-400); Red Blood Count 4.27 X10*6/uL (4.60-5.80); Red Cell Distribution Width 15.8 % (11.0-16.0); White Blood Count 4.6 X10*3/uL (4.8-10.8)
[2024-02-18 14:56] LABS: Alanine Aminotransferase 28 U/L (0-40); Albumin Level 3.6 g/dL (3.5-5.0); Alkaline Phosphatase 63 U/L (39-117); Anion Gap 11 (12-20); Aspartate Amino Transferase 28 U/L (5-37); Bilirubin Total 0.3 mg/dL (0.0-1.0); Blood Urea Nitrogen 52 mg/dL (9-16); Calcium 9.5 mg/dL (8.4-10.2); Carbon Dioxide 25 mmol/L (22-29); Chloride 109 mmol/L (96-108); Estimated Glomerular Filt Rate 19; Glucose Random 121 mg/dL (60-115); Potassium 4.4 mmol/L (3.3-5.1); Sodium 141 mmol/L (135-145); Total Protein 6.8 g/dL (6.5-8.0)
[2024-02-18 15:04] LABS: B Type Natriuretic Peptide 723 pg/mL (<100)
== END 2024-02-18 13:48 | disposition home or self-care (01) ==
LOC: HO.CT 13:47
PROVIDERS: PCP Family Medicine; Visit Provider Family Medicine
DX: J90 Pleural effusion, not elsewhere classified (principal); I50.42 Chronic combined systolic (congestive) and diastolic (congestive) heart failure; Z00.00 Encounter for general adult medical examination without abnormal findings
CPT/HCPCS: 36415; 71250; 80053; 83880; 84443; 85025

== ENCOUNTER 2024-03-08 09:16 | Outpatient (AMB) | payer OTHER, SELFPAY ==
--- NOTE | 2024-03-08 09:12 | A.OFFPC_ITS ---
Intake Visit Reasons: f/u CT scan via telemedicine Allergies naproxen Allergy (Severe, Verified 03/08/24 09:12) Hives gabapentin Adverse Reaction (Verified 03/08/24 09:12) Photosensitivity Tobacco use date assessed: 11/26/23 Dental Screening Dental Screen Date: 09/21/23 HPI f/u CT scan via telemedicine HPI Details 54 y/o male presents to review CT scan a nd labs. Chest CT 02/18/24. Per note: CT/CT chest wo IV con IMPRESSION: 1. Small to moderate right and trace lef t-sided pleural effusions. 2. Linear subpleural scarring within the anterior aspect of the right middle lobe. No confluent airspace consolidation. 3. Borderline cardiomegaly with a trace pericardial effusion. 4. Mild dilatation of the ascending thor acic aorta measuring up to 4.1 cm. Fleischner guidelines were followed. Electronically signed by: Petr Gomez MD 02/18/2024 03:41 PM EDT RP Morning blood sugar 87. Does not have a continuous blood sugar monitor. [facility] Medical History Gas bloat syndrome Herniated disc, cervical Back disorder Arthritis Cardiomyopathy High blood pressure Edema Pneumothorax Surgical History [place] teeth extracted Family History Mother Cancer Father Cancer Social History Household Members: Friend(s) Housing: House Are you a primary toddler caregiver to a significant other at home: No Do you presently have visiting nurse or other home services: No 75 years or older and lives alone: No Alcohol intake: never Patient Tobacco Use Status: Never used Tobacco e-Cigarette/Vaping Use: Never Used service: No Current occupational status: unemployed Current occupational exposures/hazards: No Gender identity: Male Cognitive needs: No Hearing needs: No Vision needs: Yes Questionnaire Thrive Questionnaire Date Thrive assessed: 08/18/23 SMITH-7 AMB Questionnaire SMITH-7 Date SMITH - 7 assessed: 08/18/23 Source: Developed by Drs. Herve Villagomez, Jillian Camargo, Geo galloway nd colleagues, with an educational nicole from [employer]. Review of Systems Const Denies chills, Denies fatigue, Denies fever(s), Denies headache(s) and Denies weakness ENT Denies dizziness and Denies headache(s) Card Denies dyspnea Resp Denies cough, Denies dyspnea, Denies wheezing and Denies other (shortness of breath) Musc Denies numbness and Denies tingling Neuro Denies dizziness, Denies headache(s), Denies numbness, Denies tingling and Denies weakness Psych Denies anxiety and Denies depression Endo Denies fatigue Aller/Immun Denies wheezing Physical exam (Primary Care) Tobacco/Smoking Status: Tobacco use Status Tobacco use date assessed 11/26/23 03/08/24 09:14 Patient Tobacco Use Status Never used Tobacco 03/08/24 09:14 e-Cigarette/Vaping Use Never Used 03/08/24 09:14 Thrive Assessment: Date of Thrive Assessment Date Thrive assessed 08/18/23 03/08/24 09:14 Telehealth Telehealth Telehealth Platform: Telephone Location of provider rendering services: practice address Location of patient: address on file Patient Identification confirmed using: Name, : Yes Telehealth method: voice only Patient verbally consented to treatment: Yes Patient verbally consented to billing insurance company: Yes Patient informed of any privacy concerns related to visit: Yes Minutes spent on Phone/Video with Pt.: 20 Coding Level of Care Code Tele Est Pt Level 3 (37526) Diagnoses Pleural effusion, bilateral J90 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 No?masses. BNP?is?elevated?though?lower?than?prior?check Patient?says?his?breathing?has?not?improved?or?worsened Will?recheck?chest?x-ray?and?BNP If?pleural?effusion?progresses,?may?need?thoracentesis (2) CHF (congestive heart failure): Code(s): I50.9 - Heart failure, unspecified Category: Medical Qualifiers: Heart failure chronicity: chronic Heart failure type: combined systolic and diastolic Qualified Code(s): I50.42 - Chronic combined systolic (congestive) and diastolic (congestive) heart failure Plan: Patient?continues?torsemide, has?fluid?restriction?and?is?avoiding?salt/sodium As?above,?checking?chest?x-ray?and?BNP Follow?up?with?Cardiology?at[facility]. I?still?do?not?hav e?their?most?recent?note?so?I?will?request?this (3) Abdominal discomfort: Code(s): R10.9 - Unspecified abdominal pain Category: Medical Plan: Likely?constipation?and?diarrhea?secondary?to fluid?restriction?and?opiate?use. Keep?fluids?spread?out?throughout?day Avoid?difficult?to?digest?foods Continue?simethicone Patient?has?a?referral?to?gastroenterology?already?but?requests?referral?to?GI?i carlin Herbert MA - referred (4) Diarrhea: Code(s): R19.7 - Diarrhea, unspecified Category: Medical Plan: As?above (5) Diabetes mellitus type 2 with complications: Code(s): E11.8 - Type 2 diabetes mellitus with unspecified complications Category: Medical Plan: Blood?sugars?appear?fairly?well?controlled?though?he?has?not?tolerated?Jardiance . Will?switch?to?Farxiga Maintain?good?blood?sugar?control He?would?benefit?from?a?continuous?glucose?monitor?and?I?am?asking?the?nurse?shannon crooks?to?help?with?this (6) Anemia: Code(s): D64.9 - Anemia, unspecified Category: Medical Plan: Ongoing?anemia?likely?secondary?to?chronic?disease?and?renal?failure Still?on?iron?and?I?encouraged?him?to?continue?this?at?least?until?he?follows?up ?with?his?Hematology-Oncology?as?as?he?still?has?a?microcytosis He?had?recei werner?Procrit?shots?but?hemoglobin?greater?than?10?and?did?not?receive?1?at?his?la st?visit?to?the?[facility]. Follow-up?with?hematology?and?nephrology Orders: Orders XR chest 2V Today I50.9 - Heart failure, unspecified GI Panel Today R19.7 - Diarrhea, unspecified B Type Natriuretic Peptide Today I50.9 - Heart failure, unspecified Comprehensive Met. Panel Today I50.9 - Heart failure, unspecified Hemoglobin A1c Today E11.8 - Type 2 diabetes mellitus with unspecified complications, R73.01 - Impaired fasting glucose Referrals Nurse Navigator Referral E11.8 - Type 2 diabetes mellitus with unspecified complications Medications: New dapagliflozin propanediol (Farxiga) 5 mg PO QAM 90 days 90 tabs 2RF
== END 2024-03-08 17:05 | disposition home or self-care (01) ==
LOC: HO.HMCFM 09:16
PROVIDERS: PCP Family Medicine; Visit Provider Family Medicine
DX: E11.8 Type 2 diabetes mellitus with unspecified complications (principal); I50.42 Chronic combined systolic (congestive) and diastolic (congestive) heart failure; J90 Pleural effusion, not elsewhere classified; R10.9 Unspecified abdominal pain; R19.7 Diarrhea, unspecified; D64.9 Anemia, unspecified

== ENCOUNTER → 2024-03-08 09:16 | Outpatient (BNVA) | payer OTHER, SELFPAY | PROVIDERS: PCP Family Medicine; Visit Provider Family Medicine ==

== ENCOUNTER 2024-03-13 14:29 | Outpatient (AMB) | payer OTHER, SELFPAY ==
[2024-03-13 14:32] VITALS: BP 136/70; PULSE 69; O2SAT 97; BMI 22.5
--- NOTE | 2024-03-13 14:32 | HO.NEPHOV ---
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 Cashier Required: No Accompanied by: Spouse Allergies naproxen Allergy (Severe, Verified 03/13/24 14:34) Hives gabapentin Adverse Reaction (Verified 03/13/24 14:34) Photosensitivity Medication List - Last Reconciled 03/13/24 by Magdaleno Cohen MD amlodipine 5 mg PO DAILY ascorbate calcium (vitamin C) 500 mg PO DAILY blood sugar diagnostic (FreeStyle Test strips) Test blood sugar 4 times a day As directed, 90 days calcium acetate 667 mg PO DAILY carvedilol 12.5 mg (2 x 6.25 mg) PO DAILY 90 days clobetasol 0.05% 0.05 appl topical DAILY PRN dapagliflozin propanediol (Farxiga) 5 mg PO QAM 90 days ferrous sulfate 325 mg PO DAILY 90 days hydralazine 100 mg PO QID insulin glargine (Lantus U-100 Insulin) 8 units (0.08 mL) subcut QPM insulin lispro 1 sliding scale dose subcut QIDACHS isosorbide mononitrate ER 30 mg PO DAILY 90 days lancets (FreeStyle Lancets) As directed magnesium 250 mg PO DAILY oxycodone-acetaminophen 5-325 mg (Percocet) 1 tab PO Q8H PRN 30 days pen needle, diabetic (BD Ultra-Fine Mini Pen Needle) As directed rosuvastatin 10 mg PO DAILY 90 days simethicone 80 mg PO BID-QID PRN 30 days torsemide 20 mg PO DAILY HPI Comments Details: Mega is a 53 -year-old man with a history of longstanding diabetes mellitus. He has been referred for renal evaluation since his serum creatinine is around 2.1 mg/dL. He was seen by vascular surgeon Dr. Avery and subsequently referred due to skin lesions Mega primarily complains of leg pain. He has not on any NSAIDs. 11/05/23 Doing better Eye sight is better post retinal injection 01/10/2024. Blood sugar is better controlled. He is waiting for surgery on February 08. Has abdominal discomfort on and off Has been referred for GI evaluation for possible endoscopy 02/15/2024. Patient was unable to come into the office today. This is a tele visit. Recently blood pressure elevated Amlodipine was increased by PCP from 5 mg to 10 mg. Subsequently he developed diarrhea and therefore he was cut back to 5 mg. Continues her shortness of breath on exertion. The recent imaging studies showed pleural effusion. He is waiting for a CT scan of the chest Ultrasound of the kidneys were done but results are not reported yet -it has been almost 4 weeks since the imaging. 03/13/2024. Continues have GI discomfort including belching. Amlodipine was increased along with torsemide but is back down to the usual dose of 5 mg amlodipine q.d. and 20 mg torsemide. He has been a gradual increase serum creatinine. [facility] Medical History Gas bloat syndrome Herniated disc, cervical Back disorder Arthritis Cardiomyopathy High blood pressure Edema Pneumothorax Surgical History [place] teeth extracted Family History Mother Cancer Father Cancer Social History Household Members: Friend(s) Housing: House Are you a primary health care recruiter to a significant other at home: No Do you presently have visiting nurse or other home services: No 75 years or older and lives alone: No Alcohol intake: never Patient Tobacco Use Status: Never used Tobacco e-Cigarette/Vaping Use: Never Used service: No Current occupational status: unemployed Current occupational exposures/hazards: No Gender identity: Male Cognitive needs: No Hearing needs: No Vision needs: Yes Physical Exam Vital Signs: Last Vital Signs Pulse 69 03/13/24 14:32 BP 136/70 03/13/24 14:32 Pulse Ox 97 03/13/24 14:32 Oxygen Delivery Method Room Air 03/13/24 14:32 BMI result Body Mass Index 22.5 Results Reviewed Nephrology Results: Hgb 10.9 g/dl (14.0-18.0) L 02/18/24 WBC 4.6 X10*3/uL (4.8-10.8) L 02/18/24 Plt Count 205 X10*3/uL (160-400) 02/18/24 Sodium 141 mmol/L (135-145) 02/18/24 Potassium 4.4 mmol/L (3.3-5.1) 02/18/24 Chloride 109 mmol/L (96-108) H 02/18/24 Carbon Dioxide 25 mmol/L (22-29) 02/18/24 BUN 52 mg/dL (9-16) H 02/18/24 Creatinine 3.39 mg/dL (0.5-1.4) H 02/18/24 Calcium 9.5 mg/dL (8.4-10.2) 02/18/24 Assessment & Plan Assessment & Plan (1) Anemia: Code(s): D64.9 - Anemia, unspecified Category: Medical (2) Gas bloat syndrome: Code(s): K92.89 - Other specified diseases of the digestive system Category: Medical Plan . Mega has CKD 3 with a baseline creatinine around 2.0-2.2 mg/dL. He has nephrotic range proteinuria in the setting of longstanding diabetes mellitus. Probably has underlying diabetic nephropathy. Serologies are unremarkable. Nondiabetic causes seem unlikely however there has been no significant improvement renal function and EGFR is gradually drifting down words. If there is no further improvement I would arrange for a kidney biopsy to rule out nondiabetic causes. maintain blood pressure less than 130/80 and A1c less than 7%. He would benefit from SGLT -2 inhibitors Blood pressure is better controlled today. Continue to avoid nephrotoxic agents including NSAIDs. Anemia- most likely due to EPO deficiency Follow-up with Hyperparathyroidism/Hyperphosphatemia Calcium acetate 1 tab with largest meal( dinner) and stay on low Phos diet- No cola drinks. Minimize nuts/meat Check serum phosphorus ordered Orders: Orders Parathyroid Hormone Intact 5 Days D64.9 - Anemia, unspecified, N18.4 - Chronic kidney disease, stage 4 (severe) Prothrombin Time INR 5 Days D64.9 - Anemia, unspecified, N18.4 - Chronic kidney disease, stage 4 (severe) Phosphorus 5 Days D64.9 - Anemia, unspecified, N18.4 - Chronic kidney disease, stage 4 (severe) Partial Thromboplastin Time 5 Days D64.9 - Anemia, unspecified, N18.4 - Chronic kidney disease, stage 4 (severe) Coding Level of Care Code Est Pt Level 4 (17796) Complex EM visit Add On G2211 Diagnoses Anemia D64.9 Gas bloat syndrome K92.89
== END 2024-03-13 14:55 | disposition home or self-care (01) ==
PROVIDERS: PCP Family Medicine; Visit Provider Internal Medicine Hypertension Specialist
DX: N18.30 Chronic kidney disease, stage 3 unspecified (principal); D63.1 Anemia in chronic kidney disease; K92.89 Other specified diseases of the digestive system
CPT/HCPCS: 99214; G2211

== ENCOUNTER → 2024-03-13 14:29 | Outpatient (BNVA) | payer OTHER, SELFPAY | PROVIDERS: PCP Family Medicine; Visit Provider Internal Medicine Hypertension Specialist | DX: E11.22 Type 2 diabetes mellitus with diabetic chronic kidney disease (principal); N18.4 Chronic kidney disease, stage 4 (severe); D63.1 Anemia in chronic kidney disease; K92.89 Other specified diseases of the digestive system | CPT/HCPCS: 99212 ==

== ENCOUNTER 2024-03-17 14:08 | Outpatient (REF) | payer OTHER, SELFPAY ==
--- NOTE | ~2024-03-17 | XR_ITS ---
EXAMINATION: XR CHEST CLINICAL INFORMATION: Heart failure. COMPARISON: Most recent CT chest dated 02/18/2024. TECHNIQUE: 2 views of the chest were obtained. FINDINGS: Small right-sided pleural effusion, similar when compared to the prior examination. No left-sided pleural effusion. No pneumothorax. Stable cardiomediastinal silhouette. No new airspace consolidation. XR/XR chest 2V IMPRESSION: Small right-sided pleural effusion, similar when compared to the prior examination. Electronically signed by: Petr Gomez MD 03/19/2024 06:36 PM TIESHA
== END 2024-03-17 14:09 | disposition home or self-care (01) ==
LOC: HO.XRAY 14:08
PROVIDERS: PCP Family Medicine; Visit Provider Family Medicine
DX: I50.9 Heart failure, unspecified (principal)
CPT/HCPCS: 71046

== ENCOUNTER 2024-04-10 14:03 | Outpatient (AMB) | payer OTHER, SELFPAY ==
--- NOTE | 2024-04-10 14:08 | A.OFFPC_ITS ---
Vital Signs 04/10/24 14:10 Height 6 ft Weight 174 lb 8 oz BMI 23.7 BP 140/70 H Blood Pressure Location Lt brachial Position Sitting Respiration 16 Pulse 70 Pulse Source Pulse Oximeter Temp 97.6 F Temp Source Oral Pulse Oximetry (%) 97 Oxygen Delivery Method Room Air Intake Visit Reasons: fu CHF,?pleural?effusion,?renal?failure & CC. 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 Accompanied by: Friend Followed by:: ashley Allergies naproxen Allergy (Severe, Verified 04/10/24 14:09) Hives gabapentin Adverse Reaction (Verified 04/10/24 14:09) Photosensitivity Medication List - Last Reconciled 04/10/24 by Shmuel Youssef MD amlodipine 5 mg PO DAILY 90 days ascorbate calcium (vitamin C) 500 mg PO DAILY blood sugar diagnostic ([employer]Style Test strips) Test blood sugar 4 times a day As directed, 90 days blood-glucose meter,continuous ([employer]Style Nathan 3 [place]) As directed, 999 days blood-glucose sensor ([employer]Style Nathan 3 Sensor device) Every 2 weeks, As directed, 28 days calcium acetate 667 mg PO DAILY carvedilol 12.5 mg (2 x 6.25 mg) PO DAILY 90 days clobetasol 0.05% 0.05 appl topical DAILY PRN dapagliflozin propanediol (Farxiga) 5 mg PO QAM 90 days ferrous sulfate 325 mg PO DAILY 90 days hydralazine 100 mg PO TID insulin glargine (Lantus U-100 Insulin) 8 units (0.08 mL) subcut QPM insulin lispro 1 sliding scale dose subcut QIDACHS isosorbide mononitrate ER 30 mg PO DAILY 90 days lancets (FreeStyle Lancets) Use daily As directed magnesium 250 mg PO DAILY oxycodone-acetaminophen 5-325 mg (Percocet) 1 tab PO Q8H PRN 30 days pen needle, diabetic (BD Ultra-Fine Mini Pen Needle) As directed rosuvastatin 10 mg PO DAILY 90 days simethicone 80 mg PO BID-QID PRN 30 days torsemide 20 mg PO DAILY Tobacco use date assessed: 11/26/23 Dental Screening Dental Screen Date: 09/21/23 HPI fu CHF,?pleural?effusion,?renal?failure & CC. HPI Details Patient?presents?to?follow- up?chronic?conditions?including?hypertension,?diabetes,?chronic?renal?failure. Blood?pressure?is?elevated. He?is?taking?his?medications?as?prescribed. A1c?last?month?was?5.7%. Creatinine?level?continued?to?rise?though?seems?to?have?leveled?off?in?the?last? month. He?has?appointment?with??Vicki?tomorrow. He?has?a?complaint?of?some?right?arm?edema. He?has?complaint?mid?back?pain?wrapping?under?left?shoulder?blade?&?around?left? rib Still?has?some?ongoing?diarrhea Chest?x-ray?did?not?show?any?worsening ?of?pleural?effusion?in?BNP?level?continues?to?drop [facility] Medical History Gas bloat syndrome Herniated disc, cervical Back disorder Arthritis Cardiomyopathy High blood pressure Edema Pneumothorax Surgical History [place] teeth extracted Family History Mother Cancer Father Cancer Social History Household Members: Friend(s) Housing: House Are you a primary client care consultant to a significant other at home: No Do you presently have visiting nurse or other home services: No 75 years or older and lives alone: No Alcohol intake: never Patient Tobacco Use Status: Never used Tobacco e-Cigarette/Vaping Use: Never Used service: No Current occupational status: unemployed Current occupational exposures/hazards: No Gender identity: Male Cognitive needs: No Hearing needs: No Vision needs: Yes Questionnaire PHQ-9 Over the last 2 weeks, how often have you been bothered by any of the following problems? 2. Feeling down, depressed, or hopeless: not at all 3. Trouble falling or staying asleep, or sleeping too much: not at all 4. Feeling tired or having little energy: not at all 5. Poor appetite or overeating: not at all 6. Feeling bad about yourself - or that you are a failure or have let yourself or your family down: not at all 7. Trouble concentrating on things, such as reading the newspaper or watching television: not at all 8. Moving or speaking so slowly that other people could have noticed. Or the opposite - being so fidgety or restless that you have been moving around a lot more than usual: not at all 9. Thoughts that you would be better off or of hurting yourself in some way: not at all Source: Developed by Drs. Herve Villagomez, Jillian Camargo, Geo Koroma and colleagues, with an educational nicole from [employer]. Thrive Questionnaire Date Thrive assessed: 02/17/24 I am a: Parent/Caregiver What is your living situation today?: I have a steady place to live Within the past 12 months, did the food you bought not last and you didn't have the money to get more?: Never true Within the past 12 months, did you worry whether your food would run out before you got money to buy more?: Never true Do you have trouble paying for medicines?: No Do you have trouble getting transportation to medical appointments?: No Do you have trouble paying your heating and electricity bill?: No Do you have trouble taking care of your child, family member or friend?: No Do you have trouble with day-to-day activities such as bathing, preparing meals, shopping, managing finances, etc.?: No Are you currently unemployed and looking for a job?: No Are you interested in more education?: No Please select the resources that you would like help with: None Currently or been in a relationship where the following occur: I choose not to answer THRIVE Score: 0 SMITH-7 AMB Questionnaire SMITH-7 Date SMITH - 7 assessed: 08/18/23 Source: Developed by Drs. Herve Villagomez, Jillian Camargo, Geo Koroma and colleagues, with an educational nicole from [employer]. Review of Systems Const Denies chills, Denies fatigue, Denies fever(s), Denies headache(s) and Denies weakness ENT Denies dizziness and Denies headache(s) Card Denies dyspnea Resp Denies cough, Denies dyspnea, Denies wheezing and Denies other ( shortness of breath) Musc Details: Pain?at?mid?back?wrapping?around?of?left?rib Denies numbness Neuro Denies dizziness, Denies headache(s), Denies numbness, Denies paresthesias and Denies weakness Psych Denies anxiety and Denies depression Endo Denies fatigue Ezequiel/Lymph Details: LE Edma stable. R arm edema Aller/Immun Denies wheezing Physical exam (Primary Care) Vital Signs: Last Vital Signs Temp 97.6 F 04/10/24 14:10 Pulse 70 04/10/24 14:10 Resp 16 04/10/24 14:10 BP 140/70 H 04/10/24 14:10 Pulse Ox 97 04/10/24 14:10 Oxygen Delivery Method Room Air 04/10/24 14:10 BMI result Body Mass Index 23.7 Tobacco/Smoking Status: Tobacco use Status Tobacco use date assessed 11/26/23 04/10/24 14:17 Patient Tobacco Use Status Never used Tobacco 04/10/24 14:17 e-Cigarette/Vaping Use Never Used 04/10/24 14:17 Thrive Assessment: Date of Thrive Assessment Date Thrive assessed 02/17/24 04/10/24 14:17 Currently or been in a relationship where the following occur: I choose not to answer Const General: no acute distress and well developed Nutritional Appearance: well nourished Orientation/consciousness: patient oriented x3 [facility] Head: Yes normocephalic and Yes atraumatic Eyes General: appearance normal, both eyes and all related structures Pupils: Equal, round and reactive pupils present EOM: EOMs intact bilaterally Resp Effort & Inspection: normal respiratory effort Auscultation: clear to auscultation bilaterally Cardio Rate: regular rate Rhythm: regular rhythm Heart sounds: S1 normal heart sound present, S2 normal heart sound present, no gallops, no murmurs and no rubs Neuro General: patient oriented x3 and gait normal Cranial nerves: Yes Equal, round and reactive pupils present Extrem Other: Edema?at?right?arm. No?tension,?erythema?warmth. 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 Goal?is?less?than?130/80 Will?increase?his?carvedilol.??He?will?chec k?his?blood?pressures?at?home?and?also?let?me?know?if?he?is?having?any?dizziness ?or?weakness. Continue?hydralazine?and?amlodipine?as?prescribed (2) CHF (congestive heart failure): Code(s): I50.9 - Heart failure, unspecified Category: Medical Qualifiers: Heart failure type: combined systolic and diastolic Heart failure chronicity: chronic Qualified Code(s): I50.42 - Chronic combined systolic (congestive) and diastolic (congestive) heart failure Plan: BNP?continues?to?decline Pleural?effusion?has?not?enlarged. Continue torsemide Will?continue?to?monitor (3) Diabetes mellitus type 2 with complications: Code(s): E11.8 - Type 2 diabetes mellitus with unspecified complications Category: Medical Plan: A1c?5.7%.??Good?control.??Goal?is?less?than?7% Continue?current?medication?regimen (4) CKD (chronic kidney disease) stage 3, GFR 30-59 ml/min: Code(s): N18.30 - Chronic kidney disease, stage 3 unspecified Category: Medical Qualifiers: Chronic kidney disease stage 3 subtype: stage 3b (GFR 30-44) Qualified Code(s): N18.32 - Chronic kidney disease, stage 3b Plan: Worsening?renal?function?and?creatinine?continues?to?rise. We?continue?to?work?at?keeping?blood?pressure,?blood?sugar?and?lipids?stable He?is?avoiding?NSAIDs Blood?pressure?is?still?little?too?high?and?I?am?increasing?carvedilol Discussed?that?he?may?need?a?renal?biopsy?and?patient?understands. He?has?an?appointment?with??Vicki?tomorrow (5) Back pain: Code(s): M54.9 - Dorsalgia, unspecified Category: Medical Plan: Patient?has?sharp?thoracic?back?pain?passing? under?shoulder?blade?and?wrapping?around?left?rib Check?x-ray Orders: Orders XR chest 2V Today M54.9 - Dorsalgia, unspecified XR thoracic spine 2V Today M54.9 - Dorsalgia, unspecified Medications: Changed From carvedilol 12.5 mg (2 x 6.25 mg) PO DAILY 90 days 180 tabs 3RF To carvedilol 25 mg (4 x 6.25 mg) PO DAILY 90 days 360 tabs 3RF
--- OUTSIDE RECORDS SUMMARY | 2024-04-10 14:09 | XMS_ITS | Data Portability ---
Author Organization [place] - 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 Plan of Treatment Reminders Order Date Submit Date Provider Last Modified By Organization Details Last Modified Time Details Appointments None recorded. Lab None recorded. Referral None recorded. Procedures None recorded. Surgeries laryngosco py, direct, with injection into vocal cord(s), therapeuti c; with operating microscpe or telescope (SURG) 2023 024 [email or web address] Not available 14:43:22 Imaging None recorded. Medication Orders None recorded. Patient TargetsNo targets recorded. Patient InstructionsNo instructions recorded. Reason for Referral None Reported. 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 4 13:10:22 Chronic hoarsenes s 10215622757 05 Active 2023 ROYER ROSADO MD [address] [place] [address],[place] [address], [place], [phone] , [facility] - 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 Procedures Surgical History Date Name Laterality Status Provider Name and Address Organization Details Recorded Time 09/22/2023 FFL_RE completed ROYER ROSADO MD [address] [place] [address], [phone], [facility] - [facility] 09/22/2023 13:15:29 Imaging Results None recorded. Procedure Notes None recorded. Medical Equipment None Reported. Medications Name Sig Start Date Stop Date Status Note LastModified by Organization Details LastModified Time carvedilol 6.25 mg tablet TAKE 2 TABLETS BY MOUTH DAILY DIRECTED active Not Available Not Available Not Available torsemide 20 mg tablet TAKE 1 TABLET BY MOUTH EVERY DAY active Not Available Not Available No t Available ammonium lactate 12 % lotion APPLY TWICE A DAY TO BILATERAL LOWER LEGS TWICE A DAY AVOID OPEN AREAS active Not Available Not Available No t Available FreeStyle Lancets 28 gauge USE TO TEST BLOOD GLUCOSE 3 TIMES DAILY active Not Available Not Available Not Available isosorbide mononitrate ER 30 mg tablet,exten ded release 24 hr TAKE 1 TABLET BY MOUTH EVERY DAY active Not Available Not Available No t Available hydralazine 25 mg tablet TAKE 1 TABLET BY MOUTH THREE TIMES A DAY active Not Available Not Available Not Available aspirin 81 mg tablet,delay ed release TAKE 1 TABLET BY MOUTH EVERY DAY active Not Available Not Available No t Available ferrous sulfate 325 mg (65 mg iron) tablet TAKE 1 TABLET BY MOUTH EVERY DAY active Not Available Not Available No t Available insulin lispro (U-100) 100 unit/mL subcutaneous pen PLEASE SEE ATTACHED FOR DETAILED DIRECTIONS active Not Available Not Available N ot Available rosuvastatin 10 mg tablet TAKE 1 TABLET BY MOUTH EVERY DAY active Not Available Not Available No t Available BD Ultra-Fine Mini Pen Needle 31 gauge x /16 USE 1 STRIP TO TEST BLOOD GLUCOSE NEEDED active Not Available Not Available No t Available FreeStyle Lite Strips USE TO TEST 3 TIMES A DAY active Not Available Not Available No t Available Lantus Solostar U-100 Insulin 100 unit/mL (3 mL) subcutaneous pen INJECT 14 UNITS SUBCUTANEOU SLY EVERY EVENING FOR 90 DAYS active Not Available Not Available No t Available Vitals Date Recorded Body height Body mass index (BMI) Body weight Systolic blood pressure Diastolic blood pressure Provider Name and Address Organization Details Last Updated DateTime 09/22/2023 182.88 cm 24.1 kg/m2 43944.44 g 128 mm[Hg] 78 mm[Hg] Derian Lim [place] - [facility] 12:35:21 Social History None recorded. Functional Status None recorded. Mental Status None recorded. Family History Nothing Reported. Medical History No medical history recorded. Past Encounters Encounter ID Performer Location Encounter Start Date Encounter Closed Date Diagnosis/Indication Diagnosis SNOMED-CT Code Diagnosis ICD10 Code [id number] ROYER ROSADO MD [facility] [address] [address] 09/22/2023 11:37:32 09/23/2023 16:17:01 Paralysis of left vocal cord 801744319 J38.01 Chronic hoarseness 68776 84700 105 R49.0 Health Concerns Section Related Observation LastModified by Organization Detai ls LastModified Time None Recorded Concern Status LastModified by Organization Details LastModified Time None Recorded Advance Directives Directive None Recorded Payers Encounter Date Sequence Insurance Name Policy Number Policy Chakraborty Covered Member ID Chakraborty Member ID Guarantor Name 09/22/2023 1 [facility] (MEDICAID HMO) ELVIE Oshea [id number] Mega Oshea Notes Date Note Type Note Provider Name and Address Organization Details Recorded Time 09/22/2023 text/html Hx of cardiomyopathy. Was hospitalized at [facility] in June. 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 He had pneumothorax and [place] Florentino catheter and a very complicated course. He can eat and drink but occasionally chokes on thin liquids. Does not smoke. Voice has remained hoarse. ROYER ROSADO MD [address] [place] [address], [phone], [place] - [facility] 09/22/2023 13:19:45
[2024-04-10 14:10] VITALS: BP 140/70; PULSE 70; RESP 16; TEMP 36.4; O2SAT 97; BMI 23.7
== END 2024-04-10 14:46 | disposition home or self-care (01) ==
PROVIDERS: PCP Family Medicine; Visit Provider Family Medicine
DX: I15.2 Hypertension secondary to endocrine disorders (principal); I50.42 Chronic combined systolic (congestive) and diastolic (congestive) heart failure; E11.8 Type 2 diabetes mellitus with unspecified complications; N18.32 Chronic kidney disease, stage 3b; M54.9 Dorsalgia, unspecified

== ENCOUNTER → 2024-04-10 14:03 | Outpatient (BNVA) | payer OTHER, SELFPAY | PROVIDERS: PCP Family Medicine; Visit Provider Family Medicine | DX: I15.2 Hypertension secondary to endocrine disorders (principal); E11.22 Type 2 diabetes mellitus with diabetic chronic kidney disease; N18.32 Chronic kidney disease, stage 3b; I11.0 Hypertensive heart disease with heart failure; I50.42 Chronic combined systolic (congestive) and diastolic (congestive) heart failure; M54.9 Dorsalgia, unspecified | CPT/HCPCS: 99212 ==

== ENCOUNTER 2024-04-11 14:17 | Outpatient (AMB) | payer OTHER, SELFPAY ==
--- OUTSIDE RECORDS SUMMARY | 2024-04-11 14:21 | XMS_ITS | Data Portability ---
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 Plan of Treatment [...] Recorded Time Paralysis of left vocal cord 890322138 Active 2023 ROYER ROSADO MD [address] [place] [address], [place], [phone] , [place] [facility] 4 13:10:22 Chronic hoarsenes s 21179565286 05 Active 2023 ROYER ROSADO MD [address] [place] [address],[place] [address], [place], [phone] , [facility] - [facility] 4 13:10:28 Dyspnea 753658673 Active 2023 Other forms of dyspnea; Note: Date Diagnosed : 07/15/2023 1:10 PM (R06.09) Not Available [facility] 4 03:28:28 Paralysis of larynx 86100992 Active 2023 Paralysis of vocal cords and larynx, unilatera l; Note: Date Diagnosed : 07/15/2023 1:10 PM (J38.01) Not Available [facility] 4 03:28:28 Dysphagia 32517613 Active 2023 Dysphagia , unspecifi ed; Note: Date Diagnosed : 07/15/2023 1:10 PM (R13.10) Not Available [facility] 4 03:28:28 Problem Notes None recorded. Procedures Surgical History Date Name Laterality Status Provider Name and Address Organization Details Recorded Time 09/22/2023 FFL_RE completed ROYER ROSADO MD [address] [place] [address], [phone], [facility] - [facility] 09/22/2023 13:15:29 Imaging Results None recorded. [...] Updated DateTime 09/22/2023 182.88 cm 24.1 kg/m2 31366.44 g 128 mm[Hg] 78 mm[Hg] Derian Lim [place] - [facility] 12:35:21 Social History None recorded. Functional Status None recorded. Mental Status None recorded. Family History Nothing Reported. Medical History No medical history recorded. Past Encounters Encounter ID Performer Location Encounter Start Date Encounter Closed Date Diagnosis/Indication Diagnosis SNOMED-CT Code Diagnosis ICD10 Code [id number] ROYER ROSADO MD [facility] [address] [address] 09/22/2023 11:37:32 09/23/2023 16:17:01 Paralysis of left vocal cord 032221554 J38.01 Chronic hoarseness 56816 81230 105 R49.0 Health Concerns Section Related Observation LastModified by Organization Detai ls LastModified Time None Recorded Concern Status LastModified by Organization Details LastModified Time None Recorded Advance Directives Directive None Recorded Payers Encounter Date Sequence Insurance Name Policy Number Policy Chakraborty Covered Member ID Chakraborty Member ID Guarantor Name 09/22/2023 1 [facility] (MEDICAID HMO) ELVIE Oshea [id number] Mega Oshea Notes Date Note Type Note Provider Name and Address Organization Details Recorded Time 09/22/2023 text/html Hx of cardiomyopathy. Was hospitalized at [facility] in June. 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 He had pneumothorax and [place] Florentino catheter and a very complicated course. He can eat and drink but occasionally chokes on thin liquids. Does not smoke. Voice has remained hoarse. ROYER ROSADO MD [address] [place] [address], [phone], [place] - [facility] 09/22/2023 13:19:45
[2024-04-11 14:22] VITALS: BP 160/80; PULSE 71; O2SAT 97; BMI 23.6
--- NOTE | 2024-04-11 14:22 | HO.NEPHOV_ITS ---
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 Accompanied by: Spouse Allergies naproxen Allergy (Severe, Verified 04/11/24 14:25) Hives gabapentin Adverse Reaction (Verified 04/11/24 14:25) Photosensitivity Medication List - Last Reconciled 04/11/24 by Magdaleno Cohen MD amlodipine 5 mg PO DAILY 90 days ascorbate calcium (vitamin C) 500 mg PO DAILY blood sugar diagnostic (FreeStyle Test strips) Test blood sugar 4 times a day As directed, 90 days blood-glucose meter,continuous ([facility] Nathan 3 [place]) As directed, 999 days blood-glucose meter,continuous (Dexcom G6 Senior [employer] Developer) As directed, 999 days blood-glucose sensor (FreeStyle Nathan 3 Sensor device) Every 2 weeks, As directed, 28 days blood-glucose sensor (Dexcom G6 Sensor device) As directed, 30 days calcium acetate 667 mg PO DAILY carvedilol 25 mg (4 x 6.25 mg) PO DAILY 90 days clobetasol 0.05% 0.05 appl topical DAILY PRN dapagliflozin propanediol (Farxiga) 5 mg PO QAM 90 days ferrous sulfate 325 mg PO DAILY 90 days hydralazine 100 mg PO TID insulin glargine (Lantus U-100 Insulin) 8 units (0.08 mL) subcut QPM insulin lispro 1 sliding scale dose subcut QIDACHS isosorbide mononitrate ER 30 mg PO DAILY 90 days lancets (FreeStyle Lancets) Use daily As directed magnesium 250 mg PO DAILY oxycodone-acetaminophen 5-325 mg (Percocet) 1 tab PO Q8H PRN 30 days pen needle, diabetic (BD Ultra-Fine Mini Pen Needle) As directed rosuvastatin 10 mg PO DAILY 90 days simethicone 80 mg PO BID-QID PRN 30 days torsemide 20 mg PO DAILY HPI Comments Details: Mega is a 53 -year-old man with a history of longstanding diabetes mellitus. He has been referred for renal evaluation since his serum creatinine is around 2.1 mg/dL. He was seen by vascular surgeon Dr. Avery and subsequently referred due to skin lesions Mega primarily complains of leg pain. He has not on any NSAIDs. 11/05/23 Doing better Eye sight is better post retinal injection 01/10/2024. Blood sugar is better controlled. He is waiting for surgery on February 08. Has abdominal discomfort on and off Has been referred for GI evaluation for possible endoscopy 02/15/2024. Patient was unable to come into the office today. This is a tele visit. Recently blood pressure elevated Amlodipine was increased by PCP from 5 mg to 10 mg. Subsequently he developed diarrhea and therefore he was cut back to 5 mg. Continues her shortness of breath on exertion. The recent imaging studies showed pleural effusion. He is waiting for a CT scan of the chest Ultrasound of the kidneys were done but results are not reported yet -it has been almost 4 weeks since the imaging. 03/13/2024. Continues have GI discomfort including belching. Amlodipine was increased along with torsemide but is back down to the usual dose of 5 mg amlodipine q.d. and 20 mg torsemide. He has been a gradual increase serum creatinine. 04/11/24 HOme BP is better A1C is 5.7 PFSH Medical History Gas bloat syndrome Herniated disc, cervical Back disorder Arthritis Cardiomyopathy High blood pressure Edema Pneumothorax Surgical History [place] teeth extracted Family History Mother Cancer Father Cancer Social History Household Members: Friend(s) Housing: House Are you a primary patient care to a significant other at home: No Do you presently have visiting nurse or other home services: No 75 years or older and lives alone: No Alcohol intake: never Patient Tobacco Use Status: Never used Tobacco e-Cigarette/Vaping Use: Never Used service: No Current occupational status: unemployed Current occupational exposures/hazards: No Gender identity: Male Cognitive needs: No Hearing needs: No Vision needs: Yes Physical Exam Vital Signs: Last Vital Signs Pulse 71 04/11/24 14:22 BP 160/80 H 04/11/24 14:22 Pulse Ox 97 04/11/24 14:22 Oxygen Delivery Method Room Air 04/11/24 14:22 BMI result Body Mass Index 23.6 Results Reviewed Nephrology Results: Hgb 10.1 g/dl (14.0-18.0) L 03/17/24 WBC 6.6 X10*3/uL (4.8-10.8) 03/17/24 Plt Count 205 X10*3/uL (160-400) 03/17/24 Sodium 135 mmol/L (135-145) 03/17/24 Potassium 4.5 mmol/L (3.3-5.1) 03/17/24 Chloride 108 mmol/L (96-108) 03/17/24 Carbon Dioxide 20 mmol/L (22-29) L 03/17/24 BUN 60 mg/dL (9-16) H 03/17/24 Creatinine 3.03 mg/dL (0.5-1.4) H 03/17/24 Calcium 8.8 mg/dL (8.4-10.2) 03/17/24 Phosphorus 4.7 mg/dL (2.7-4.5) H 03/17/24 PTH Intact 26.4 pg/mL (8.7-77.1) 03/17/24 Urine Protein 300 (3+) mg/dL (Neg-Trace) H 03/17/24 Assessment & Plan Assessment & Plan (1) High blood pressure: Code(s): I10 - Essential (primary) hypertension Category: Medical Qualifiers: Hypertension type: secondary to endocrine disorders Qualified Code(s): I15.2 - Hypertension secondary to endocrine disorders Plan: Blood?pressure?is?better controlled Goal?is?less?than?130/80 Agree with increasing Carvedilol.?? Continue?hydralazine?and?amlodipine?as?prescribed (2) CHF (congestive heart failure): Code(s): I50.9 - Heart failure, unspecified Category: Medical Qualifiers: Heart failure type: combined systolic and diastolic Heart failure chronicity: chronic Qualified Code(s): I50.42 - Chronic combined systolic (congestive) and diastolic (congestive) heart failure Plan: BNP?continues?to?decline Pleural?effusion?has?not?enlarged. Continue torsemide Will?continue?to?monitor (3) Diabetes mellitus type 2 with complications: Code(s): E11.8 - Type 2 diabetes mellitus with unspecified complications Category: Medical Plan: A1c?5.7%.??Good?control.??Goal?is?less?than?7% Continue?current?medication?regimen (4) CKD (chronic kidney disease) stage 3, GFR 30-59 ml/min: Code(s): N18.30 - Chronic kidney disease, stage 3 unspecified Category: Medical Qualifiers: Chronic kidney disease stage 3 subtype: stage 3b (GFR 30-44) Qualified Code(s): N18.32 - Chronic kidney disease, stage 3b (5) Back pain: Code(s): M54.9 - Dorsalgia, unspecified Category: Medical Plan: Patient?has?sharp?thoracic?back?pain?passing?under?shoulder? blade?and?wrapping?around?left?rib Check?x-ray (6) Anemia: Code(s): D64.9 - Anemia, unspecified Category: Medical (7) Gas bloat syndrome: Code(s): K92.89 - Other specified diseases of the digestive system Category: Medical Plan . Mega has CKD 3 with a baseline creatinine around 2.0-2.2 mg/dL. He has nephrotic range proteinuria in the setting of longstanding diabetes mellitus. Probably has underlying diabetic nephropathy. Serologies are unremarkable. Nondiabetic causes seem unlikely however there has been no significant improvement renal function and EGFR is gradually drifting down words. Will hold off on biopsy for now and watch maintain blood pressure less than 130/80 and A1c less than 7%. He would benefit from SGLT -2 inhibitors Continue to avoid nephrotoxic agents including NSAIDs. Anemia- most likely due to EPO deficiency Follow-up with Hyperparathyroidism/Hyperphosphatemia Calcium acetate 1 tab with largest meal( dinner) and stay on low Phos diet- No cola drinks. 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
== END 2024-04-11 14:49 | disposition home or self-care (01) ==
PROVIDERS: PCP Family Medicine; Visit Provider Internal Medicine Hypertension Specialist
DX: I15.2 Hypertension secondary to endocrine disorders (principal); I50.42 Chronic combined systolic (congestive) and diastolic (congestive) heart failure; E11.22 Type 2 diabetes mellitus with diabetic chronic kidney disease; N18.32 Chronic kidney disease, stage 3b; M54.9 Dorsalgia, unspecified; D63.1 Anemia in chronic kidney disease; K92.89 Other specified diseases of the digestive system
CPT/HCPCS: 99214

== ENCOUNTER → 2024-04-11 14:17 | Outpatient (BNVA) | payer OTHER, SELFPAY | PROVIDERS: PCP Family Medicine; Visit Provider Internal Medicine Hypertension Specialist | DX: I15.2 Hypertension secondary to endocrine disorders (principal); E11.22 Type 2 diabetes mellitus with diabetic chronic kidney disease; I50.42 Chronic combined systolic (congestive) and diastolic (congestive) heart failure; N18.32 Chronic kidney disease, stage 3b; M54.9 Dorsalgia, unspecified; D64.9 Anemia, unspecified; K92.89 Other specified diseases of the digestive system | CPT/HCPCS: 99212 ==

== ENCOUNTER 2024-04-14 14:07 | Outpatient (REF) | payer OTHER, SELFPAY | END 2024-04-14 14:08 | disposition home or self-care (01) | LOC: HO.XRAY 14:07 | PROVIDERS: PCP Internal Medicine; Visit Provider Internal Medicine | DX: M54.9 Dorsalgia, unspecified (principal) | CPT/HCPCS: 71046; 72070 ==

== ENCOUNTER → 2024-04-24 09:44 | Outpatient (BNVA) | payer OTHER, SELFPAY | PROVIDERS: PCP Family Medicine; Visit Provider Family Medicine ==

== ENCOUNTER 2024-04-29 09:53 | Emergency (ER) | payer OTHER, SELFPAY ==
[2024-04-29] VITALS (7 sets, daily range): BP systolic 141–170; BP diastolic 70–86; PULSE 66–76; RESP 14–20; TEMP 36.3–36.8; O2SAT 95–98; BMI 23.6
--- NOTE | ~2024-04-29 | US_ITS ---
CLINICAL HISTORY: Swelling, R O DVT. Venous duplex ultrasound right upper extremity Comparison: None Findings: Accessible deep venous segments are fully compressible with normal Doppler color flow and spectral tracings. IMPRESSION: 1. Negative for right upper extremity deep vein thrombosis. This document has been electronically signed by: Michi Meléndez MD on 04/29/2024 14:17:25
--- NOTE | ~2024-04-29 | XR_ITS ---
CLINICAL HISTORY: cp 2 view chest x-ray. Comparison: CR/SR - XR CHEST 2V - 04/14/24 15:29 EST CR/SR - XR CHEST 2V - 03/17/24 16:50 EST Findings: Normal lung volumes. Stable pleural-parenchymal disease right lung base. No pneumothorax. Heart size normal. No passive venous congestion. No midline shift or tracheal deviation. No acute fracture. Impression: 1. Stable pleural-parenchymal disease right lower lobe. Mild blunting left costophrenic angle stable. This document has been electronically signed by: Venkat Polk MD on 04/29/2024 11:12:25
--- NOTE | 2024-04-29 09:55 | ECG_ITS ---
Test Reason : CHEST PAIN Blood Pressure : / mmHG Vent. Rate : 067 BPM Atrial Rate : 067 BPM P-R Int : 194 ms QRS Dur : 090 ms QT Int : 412 ms P-R-T Axes : -27 -26 -26 degrees QTc Int : 435 ms Normal sinus rhythm Inferior infarct , age undetermined Anterior infarct , age undetermined Abnormal ECG When compared with ECG of 15-SEP-2023 16:56, Inferior infarct is now Present T wave inversion now evident in Inferior leads T wave amplitude has decreased in Lateral leads Referred By: Generic ED Physician Electronically Signed By:JOVANNA BRUCE MD
--- NOTE | 2024-04-29 11:06 | ED_ITS ---
HPI - General Adult General Chief complaint: General Medical Stated complaint: Chest Pain r arm swelling Time Seen by Provider: 04/29/24 10:54 Source: patient Mode of arrival: ambulatory Limitations: no limitations History of Present Illness ED Provider: DR. Brandon HPI narrative: 54-year-old male with history of HTN, CHF, dm 2 presented today with 2 weeks of left-sided chest pain and right scapular pain with right upper extremity swelling patient's symptoms started 2 weeks ago had chest x-ray ordered by PCP as an outpatient. Pain is almost chronic for 2 weeks with no radiation, no association of shortness of breath or fever or chills. Patient was offered by PCP to go to pain management clinic. Related Data Home Medications ?Medication ?Instructions ?Recorded ?Confirmed pen needle, diabetic 31 gauge x #1,200 ea 08/18/23 04/11/2407/09 (BD Ultra-Fine Mini Pen Needle) ascorbate calcium (vitamin C) 500 500 mg PO DAILY 11/05/23 04/11/24 mg tablet clobetasol 0.05 % topical cream 0.05 appl topical DAILY PRN yes 11/05/23 04/11/24 magnesium 250 mg tablet 250 mg PO DAILY 11/05/23 04/11/24 torsemide 20 mg tablet 20 mg PO DAILY 03/13/24 04/11/24 hydralazine 25 mg tablet 100 mg PO TID 04/10/24 04/11/24 Previous Rx's ?Medication ?Instructions ?Recorded insulin lispro 100 unit/mL 1 sliding scale dose subcut 08/20/23 subcutaneous pen QIDACHS #15 mL simethicone 80 mg chewable tablet 80 mg PO BID-QID PRN abdominal 09/21/23 distention 30 days #120 tabs rosuvastatin 10 mg tablet 10 mg PO DAILY 90 days #90 tabs 10/12/23 blood sugar diagnostic (FreeStyle #400 ea 10/13/23 Test strips) insulin glargine 100 unit/mL 8 unit (0.08 mL) subcut QPM #10 mL 02/02/24 subcutaneous solution (Lantus U-100 Insulin) isosorbide mononitrate 30 mg 30 mg PO DAILY 90 days #90 tabs 02/06/24 tablet,extended release 24 hr ferrous sulfate 325 mg (65 mg 325 mg PO DAILY 90 days #90 tabs 02/11/24 iron) tablet calcium acetate 667 mg tablet 667 mg PO DAILY hyperphospatemia 02/16/24 #90 tabs dapagliflozin propanediol 5 mg 5 mg PO QAM 90 days #90 tabs 03/08/24 tablet (Farxiga) blood-glucose meter,continuous #2 ea 03/20/24 (FreeStyle Nathan 3 [place]) blood-glucose sensor (FreeStyle #2 ea 03/20/24 Nathan 3 Sensor device) oxycodone-acetaminophen 5 mg-325 1 tab PO Q8H PRN pain 30 days #90 04/03/24 mg tablet (Percocet) tabs amlodipine 5 mg tablet 5 mg PO DAILY 90 days #90 tabs 04/04/24 lancets 28 gauge (FreeStyle #100 ea 04/06/24 Lancets) carvedilol 6.25 mg tablet 25 mg (4 x 6.25 mg) PO DAILY 90 04/10/24 days #360 tabs blood-glucose meter,continuous #1 ea 04/11/24 (Dexcom G6 Photostatic Copy Maker) blood-glucose sensor (Dexcom G6 #3 ea 04/11/24 Sensor device) Allergies Allergy/AdvReac Type Severity Reaction Status Date / Time naproxen Allergy Severe Hives Verified 04/29/24 10:19 gabapentin AdvReac Photosensit Verified 04/29/24 10:19 ivity Review of Systems 2 Review of Systems: All other systems are reviewed and are negative Constitutional: Reports as per HPI and Reports no additional constitutional complaints Eyes: Reports as per HPI and Reports no additional eye complaints Reports system reviewed and no additional complaints, except as documented Cardiovascular: Reports as per HPI and Reports no additional cardiovascular complaints Respiratory: Reports as per HPI and Reports no additional respiratory complaints Gastrointestinal: Reports as per HPI and Reports no additional gastrointestinal complaints Genitourinary: Reports no additional female genitourinary complaints Musculoskeletal: Reports no additional musculoskeletal complaints Skin/Breast: Reports system reviewed and no additional complaints, except as docu Psychiatric: Reports no additional psychiatric complaints Endocrine: Reports no additional endocrine complaints Hematologic/Lymphatic: Reports no additional hematologic/lymphatic complaints Allergic/Immunologic: Reports no additional allergic/immunologic complaints Reports system reviewed and no additional complaints, except as documented and Reports Abnormal speech present PMFSH Past Medical History Medical History Gas bloat syndrome Herniated disc, cervical Back disorder Arthritis Cardiomyopathy High blood pressure Edema Pneumothorax Surgical History [place] teeth extracted Family History Family History Mother Cancer Father Cancer Social History Social History Household Members: Friend(s) Housing: House Are you a primary field care manager to a significant other at home: No Do you presently have visiting nurse or other home services: No Alcohol intake: never Patient Tobacco Use Status: Never used Tobacco Smoked in Last 30 Days: No e-Cigarette/Vaping Use: Never Used Use of substances other than those prescribed or required for medical reasons: No Advance Directives: Yes Advance Directives Information Provided: No Advance Directives on File: No Do you have a plan to hurt others: No Plan service: No Current occupational status: unemployed Current occupational exposures/hazards: No Gender identity: Male Cognitive needs: No Hearing needs: No Vision needs: Yes Physical Exam ED Vital Signs: Vital Signs - 24 hr 04/29/24 10:16 04/29/24 11:06 04/29/24 12:10 Temperature 98.0 F 97.9 F 97.4 F Pulse Rate 76 67 66 Respiratory Rate 16 14 20 Blood Pressure 170/86 H 152/79 H 158/81 H Pulse Oximetry 98 96 97 Oxygen Delivery Method Room Air Room Air Room Air 04/29/24 13:00 04/29/24 13:03 04/29/24 14:06 Temperature 98.0 F Pulse Rate 69 67 Respiratory Rate 16 14 17 Blood Pressure 152/85 H 141/76 H Pulse Oximetry 97 95 Oxygen Delivery Method Room Air Room Air BMI result Body Mass Index 23.6 Vital signs have been reviewed and appear to be correct. Blood pressure elevated. Heart rate normal. Respiratory rate normal. Temperature normal. Oxygen saturation normal. Appearance: Alert. Oriented X3. No acute distress. Head: Normal external exam. Normocephalic. Atraumatic. No [place] signs noted. No raccoon eyes noted Eyes: PERRLA. EOMI. Conjunctiva and sclera normal. Eyelids normal. ENT: TM's Normal. Pharynx normal. Uvula midline. Moist mucous membranes. No trismus noted. No drooling noted. No muffled voice noted. Neck: Normal inspection. Neck supple. FROM. No adenopathy. Thyroid Normal. No meningeal signs. No neck mass noted. CVS: Normal heart rate and rhythm. Heart sound normal. No murmurs noted. Pulses normal throughout. Respiratory: No respiratory distress. Painless inspiration. Breath sounds normal. No wheezes/rales/rhonchi noted. Chest nontender. No accessory muscle usage noted or decreased air movement noted. Abdomen: Soft and nontender. Bowel sounds normal in all 4 quadrants. No distention noted. No organomegaly noted. No visible injury noted. Back: No CVA tenderness. Full range of motion noted. Skin: Skin warm and dry. Normal skin color. Normal skin turgor. No rashes/lesions/lacerations noted. Extremities: No lower extremity edema. Right upper extremity forearm +1 pitting edema. Neuro: Oriented X 3. Cranial nerve exam: II-XII are grossly intact No motor deficit. No sensory deficit. Reflexes normal. Course Reevaluation(s) Reevaluation #1: 54-year-old male came in with an acute ongoing chest pain for 2 weeks had outpatient workup for by PCP. Patient has negative troponin x 2. Slightly elevated D-dimer expected since patient is known to have DVT his already on anticoagulation, no tachycardia, no tachypnea, no hypoxia to suggest acute pulmonary embolism. Patient was instructed to follow-up with PCP and request for outpatient pain management clinic. Time: 14:53 Medications Administered Discontinued Medications Generic Name Dose Route Start Last Admin Trade Name Freq PRN Reason Stop Dose Admin Morphine Sulfate 2 mg 04/29/24 12:39 04/29/24 13:00 Morphine Sulfate 2 Mg/Ml Cartridge IVPUSH 04/29/24 12:40 2 mg ONCE ONE Administration Protocol Medical Decision Making Differential Diagnosis Differential Diagnoses: The differential diagnosis associated with the presentation includes (CHF, pneumonia, pneumothorax, pleural effusion, severe anemia, electrolyte derangement, chronic chest pain.) Admission/Observation Consideration of admission/observation: Escalation of care including admission/observation considered Lab Data MDM Lab Attestation statement: I reviewed the patient's lab results. 04/29/24 11:03 04/29/24 11:03 Labs: Lab Results 04/29/24 04/29/2425 Range/Units 11:03 11:10 14:11 WBC 7.2 (4.8-10.8) X10*3/uL RBC 4.41 L (4.60-5.80) X10*6/uL Hgb 11.2 L (14.0-18.0) g/dl Hct 35.4 L (42.0-52.0) % MCV 80.3 (80.0-98.0) fL MCH 25.4 L (27.0-33.0) pg MCHC 31.6 (31.0-36.0) g/dl RDW 17.9 H (11.0-16.0) % Plt Count 209 (160-400) X10*3/uL MPV 9.2 L (9.4-12.4) fL Immature Gran % (Auto) 0.3 (0.0-0.4) % Neut % (Auto) 78.7 H (45-73) % Lymph % (Auto) 7.3 L (20-40) % [place] % (Auto) 8.0 (2-11) % Eos % (Auto) 4.9 H (0-4) % Baso % (Auto) 0.8 (0-2) % Lymph # (Auto) 0.5 L (1.2-4.9) X10*3/uL [place] # (Auto) 0.6 (0.1-1.2) X10*3/uL Eos # (Auto) 0.4 (0.0-0.4) X10*3/uL Baso # (Auto) 0.1 (0.0-0.2) X10*3/uL Abs Immat Gran (auto) 0.02 (0.00-0.03) X10*3/uL Absolute Neuts (auto) 5.6 (2.0-8.3) x10*3/uL Absolute Nucleated RBC 0.000 (0.0-0.012) X10*3/uL Nucleated RBC % (auto) 0.0 (0.0-0.2) /100WBC D-Dimer High Sensitivty 602 NG/ML Sodium 140 (135-145) mmol/L Potassium 4.7 (3.3-5.1) mmol/L Chloride 113 H (96-108) mmol/L Carbon Dioxide 18 L (22-29) mmol/L Anion Gap 14 (12-20) BUN 48 H (9-16) mg/dL Creatinine 2.94 H (0.5-1.4) mg/dL Estim Creat Clear Calc 31.1 Estimated GFR 22 Random Glucose 107 (60-115) mg/dL Calcium 8.3 L (8.4-10.2) mg/dL Total Bilirubin 0.3 (0.0-1.0) mg/dL AST 25 (5-37) U/L ALT 26 (0-40) U/L Alkaline Phosphatase 70 (39-117) U/L Troponin I High Sens 40.3 H 39.7 H (<3.5-35.0) ng/L B-Natriuretic Peptide 767 H (<100) pg/mL Total Protein 6.0 L (6.5-8.0) g/dL Albumin 3.2 L (3.5-5.0) g/dL Independent Interpretation I performed an independent interpretation of an: Plain X-Ray (Chest:Normal lung volumes. Stable pleural-parenchymal disease right lung base. No pneumothorax. Heart size normal. No passive venous congestion. No midline shift or tracheal deviation. No acute fracture.) and Ultrasound (Right upper extremities ultrasound: No DVT.) Radiology Impression Discussion of test interpretation with radiology: I have reviewed the radiologist's reading. Discharge Plan Discharge Clinical Impression: Chest pain, Edema of right upper extremity Patient Disposition: Home, Self-Care Instructions: Edema (ED), Chest Pain (ED) Prescriptions: No Action insulin lispro 100 unit/mL insulin pen 1 sliding scale dose subcut QIDACHS Qty: 15 0RF Rx Instructions: Before meal times administer according to this scale based on your blood glucose. Glucose 70-150: 0 unit. 151-200: 2 units. 201-250: 4 units. 251-300: 6 units. 301-350: 8 units. 351-400: 10 units. >400: 12 units and call doctor. isosorbide mononitrate 30 mg tablet extended release 24 hr 30 mg PO DAILY 90 Days Qty: 90 3RF ferrous sulfate 325 mg (65 mg iron) tablet 325 mg PO DAILY 90 Days Qty: 90 0RF calcium acetate 667 mg tablet 667 mg PO DAILY Qty: 90 1RF Rx Instructions: Take one with dinner (DME) FreeStyle Nathan 3 [place] Misc See Rx Instructions .Route Qty: 2 0RF Rx Instructions: As directed, 999 days (DME) FreeStyle Nathan 3 Sensor Device See Rx Instructions .Route Qty: 2 4RF Rx Instructions: Every 2 weeks, As directed, 28 days oxycodone-acetaminophen [Percocet] 5-325 mg tablet 1 tab PO Q8H PRN (Reason: pain) 30 Days Qty: 90 0RF Rx Instructions: MassPat Verified, Partial Fill upon patient request. amlodipine 5 mg tablet 5 mg PO DAILY 90 Days Qty: 90 2RF (DME) lancets [FreeStyle Lancets] 28 gauge misc See Rx Instructions .ROUTE TID Qty: 100 0RF Rx Instructions: Use daily As directed hydralazine 25 mg tablet 100 mg PO TID (DME) pen needle, diabetic [BD Ultra-Fine Mini Pen Needle] 31 gauge x 3/16 needle See Rx Instructions .ROUTE .MEDSUPPLY Qty: 1200 Rx Instructions: As directed simethicone 80 mg tablet,chewable 80 mg PO BID-QID PRN (Reason: abdominal distention) 30 Days Qty: 120 2RF rosuvastatin 10 mg tablet 10 mg PO DAILY 90 Days Qty: 90 3RF (DME) FreeStyle Test Strip See Rx Instructions .Route Qty: 400 3RF Rx Instructions: Test blood sugar 4 times a day As directed, 90 days clobetasol 0.05 % cream 0.05 appl topical DAILY PRN (Reason: yes) magnesium 250 mg tablet 250 mg PO DAILY ascorbate calcium (vitamin C) 500 mg tablet 500 mg PO DAILY dapagliflozin propanediol [Farxiga] 5 mg tablet 5 mg PO QAM 90 Days Qty: 90 2RF insulin glargine [Lantus U-100 Insulin] 100 unit/mL solution 8 unit subcut QPM Qty: 10 3RF torsemide 20 mg tablet 20 mg PO DAILY carvedilol 6.25 mg tablet 25 mg PO DAILY 90 Days Qty: 360 3RF (DME) Dexcom G6 Photostatic Copy Maker Misc See Rx Instructions .Route Qty: 1 0RF Rx Instructions: As directed, 999 days (DME) Dexcom G6 Sensor Device See Rx Instructions .Route Qty: 3 0RF Rx Instructions: As directed, 30 days Referrals: Mikael,Shmuel, MD [Primary Care Provider] - Print Language: Persian
[2024-04-29 11:08] LABS: MANUAL DIFF FLAG NO
[2024-04-29 11:11] LABS: Basophils Absolute Auto 0.1 X10*3/uL (0.0-0.2); Basophils Percent Auto 0.8 % (0-2); Eosinophils Absolute Auto 0.4 X10*3/uL (0.0-0.4); Eosinophils Percent Auto 4.9 % (0-4); Hematocrit 35.4 % (42.0-52.0); Hemoglobin 11.2 g/dl (14.0-18.0); Imm Gran Abs Auto 0.02 X10*3/uL (0.00-0.03); Imm Gran Pct Auto 0.3 % (0.0-0.4); Lymphocytes Absolute Auto 0.5 X10*3/uL (1.2-4.9); Lymphocytes Percent Auto 7.3 % (20-40); Mean Corpuscular HGB Conc 31.6 g/dl (31.0-36.0); Mean Corpuscular Hemoglobin 25.4 pg (27.0-33.0); Mean Corpuscular Volume 80.3 fL (80.0-98.0); Mean Platelet Volume 9.2 fL (9.4-12.4); Monocytes Absolute Auto 0.6 X10*3/uL (0.1-1.2); Neutrophils Absolute Auto 5.6 x10*3/uL (2.0-8.3); Neutrophils Percent Auto 78.7 % (45-73); Platelet Count 209 X10*3/uL (160-400); Red Blood Count 4.41 X10*6/uL (4.60-5.80); Red Cell Distribution Width 17.9 % (11.0-16.0); White Blood Count 7.2 X10*3/uL (4.8-10.8)
[2024-04-29 11:25] LABS: Alanine Aminotransferase 26 U/L (0-40); Albumin Level 3.2 g/dL (3.5-5.0); Alkaline Phosphatase 70 U/L (39-117); Anion Gap 14 (12-20); Aspartate Amino Transferase 25 U/L (5-37); Bilirubin Total 0.3 mg/dL (0.0-1.0); Blood Urea Nitrogen 48 mg/dL (9-16); Calcium 8.3 mg/dL (8.4-10.2); Carbon Dioxide 18 mmol/L (22-29); Chloride 113 mmol/L (96-108); Creatinine Clr Calc Pharmacy 31.1; Estimated Glomerular Filt Rate 22; Glucose Random 107 mg/dL (60-115); Potassium 4.7 mmol/L (3.3-5.1); Sodium 140 mmol/L (135-145)
[2024-04-29 11:25] LABS: D Dimer High Sensitivity 602 NG/ML
[2024-04-29 11:31] LABS: B Type Natriuretic Peptide 767 pg/mL (<100)
[2024-04-29 11:33] LABS: Troponin-I High Sensitivity 40.3 ng/L (<3.5-35.0)
--- NOTE | 2024-04-29 12:08 | PC.NURSE ---
Pt. requesting pain medication. Kirby Brandon MD notified.
[2024-04-29] MEDS: Morphine Sulfate 2 MG/ML CARTRIDGE IVPUSH (13:00)
[2024-04-29 14:43] LABS: Troponin-I High Sensitivity 39.7 ng/L (<3.5-35.0)
[2024-04-29] MEDS: oxyCODONE HCl Immed Release 5 MG TABLET PO (15:30)
== END 2024-04-29 15:35 | disposition home or self-care (01) ==
PROVIDERS: Emergency Provider Emergency Medicine; PCP Family Medicine
DX: R07.9 Chest pain, unspecified (principal); R60.9 Edema, unspecified; E11.22 Type 2 diabetes mellitus with diabetic chronic kidney disease; I13.0 Hypertensive heart and chronic kidney disease with heart failure and stage 1 through stage 4 chronic kidney disease, or unspecified chronic kidney disease; N18.4 Chronic kidney disease, stage 4 (severe); I50.9 Heart failure, unspecified; Z79.4 Long term (current) use of insulin; Z79.02 Long term (current) use of antithrombotics/antiplatelets
CPT/HCPCS: 36415; 71046; 80053; 83880; 84484; 85025; 85379; 93005; 93971; 96374; 99284; 99285; J2270

== ENCOUNTER → 2024-04-29 09:55 | Outpatient (BNV) | payer OTHER, SELFPAY | PROVIDERS: Emergency Provider Emergency Medicine; PCP Family Medicine; Visit Provider Internal Medicine Cardiovascular Disease | DX: R94.31 Abnormal electrocardiogram [ECG] [EKG] (principal) | CPT/HCPCS: 93010 ==

== ENCOUNTER 2024-05-10 21:57 | Emergency (ER) | payer OTHER, SELFPAY ==
[2024-05-10 22:05] VITALS: BP 188/97; PULSE 81; RESP 18; O2SAT 96; BMI 24.6
--- NOTE | 2024-05-10 22:33 | MHC.EDTECH ---
Patient brought into triage area,labs collected sent to lab.
[2024-05-10 22:39] LABS: Hematocrit 28.5 % (42.0-52.0); Hemoglobin 9.2 g/dl (14.0-18.0); Mean Corpuscular HGB Conc 32.3 g/dl (31.0-36.0); Mean Corpuscular Hemoglobin 25.5 pg (27.0-33.0); Mean Corpuscular Volume 78.9 fL (80.0-98.0); Mean Platelet Volume 9.6 fL (9.4-12.4); Platelet Count 191 X10*3/uL (160-400); Red Blood Count 3.61 X10*6/uL (4.60-5.80); Red Cell Distribution Width 16.4 % (11.0-16.0); White Blood Count 5.9 X10*3/uL (4.8-10.8)
[2024-05-10 22:51] LABS: INTERNATIONAL NORM RATIO 0.9 (0.9-1.1)
[2024-05-10 22:53] LABS: Alanine Aminotransferase 27 U/L (0-40); Albumin Level 3.2 g/dL (3.5-5.0); Alkaline Phosphatase 65 U/L (39-117); Anion Gap 10 (12-20); Aspartate Amino Transferase 27 U/L (5-37); Bilirubin Total 0.3 mg/dL (0.0-1.0); Blood Urea Nitrogen 73 mg/dL (9-16); Calcium 8.2 mg/dL (8.4-10.2); Carbon Dioxide 20 mmol/L (22-29); Chloride 111 mmol/L (96-108); Creatinine Clr Calc Pharmacy 27.7; Estimated Glomerular Filt Rate 20; Glucose Random 117 mg/dL (60-115); Potassium 4.7 mmol/L (3.3-5.1); Sodium 136 mmol/L (135-145)
[2024-05-11 00:10] VITALS: BP 187/101; PULSE 67; RESP 18; TEMP 36.6; O2SAT 96
--- NOTE | 2024-05-11 03:11 | ED.GENADULT ---
HPI - General Adult General Chief complaint: General Medical Stated complaint: uncontrolled bloody nose Time Seen by Provider: 05/11/24 03:11 Source: patient Mode of arrival: ambulatory Limitations: no limitations History of Present Illness ED Provider: Dr. Herbert Castro HPI narrative: 52-year-old male with a history diabetes mellitus, coronary disease, congestive heart failure, chronic kidney disease, GERD who presents emergency department for evaluation of the bloody nose. Patient states that last several days his sinuses has been dry. Proximally 3 hours prior to coming to the emergency department he blew his nose. He states that after blowing his nose he started to have a nose bleed mainly out of the right nares. He states that he had a large amount of blood and clots which she was unable to stop, therefore he came to the emergency department for evaluation. Patient does take aspirin but no other blood thinners. He was not noticed any unusual bleeding. He denied being ill in any way over the past several days. Related Data Home Medications ?Medication ?Instructions ?Recorded ?Confirmed pen needle, diabetic 31 gauge x #1,200 ea 08/18/23 04/11/2407/09 (BD Ultra-Fine Mini Pen Needle) ascorbate calcium (vitamin C) 500 500 mg PO DAILY 11/05/23 04/11/24 mg tablet clobetasol 0.05 % topical cream 0.05 appl topical DAILY PRN yes 11/05/23 04/11/24 magnesium 250 mg tablet 250 mg PO DAILY 11/05/23 04/11/24 torsemide 20 mg tablet 20 mg PO DAILY 03/13/24 04/11/24 hydralazine 25 mg tablet 100 mg PO TID 04/10/24 04/11/24 Previous Rx's ?Medication ?Instructions ?Recorded insulin lispro 100 unit/mL 1 sliding scale dose subcut 08/20/23 subcutaneous pen QIDACHS #15 mL simethicone 80 mg chewable tablet 80 mg PO BID-QID PRN abdominal 09/21/23 distention 30 days #120 tabs rosuvastatin 10 mg tablet 10 mg PO DAILY 90 days #90 tabs 10/12/23 blood sugar diagnostic (FreeStyle #400 ea 10/13/23 Test strips) insulin glargine 100 unit/mL 8 unit (0.08 mL) subcut QPM #10 mL 02/02/24 subcutaneous solution (Lantus U-100 Insulin) isosorbide mononitrate 30 mg 30 mg PO DAILY 90 days #90 tabs 02/06/24 tablet,extended release 24 hr ferrous sulfate 325 mg (65 mg 325 mg PO DAILY 90 days #90 tabs 02/11/24 iron) tablet calcium acetate 667 mg tablet 667 mg PO DAILY hyperphospatemia 02/16/24 #90 tabs dapagliflozin propanediol 5 mg 5 mg PO QAM 90 days #90 tabs 03/08/24 tablet (Farxiga) blood-glucose meter,continuous #2 ea 03/20/24 (FreeStyle Nathan 3 [place]) blood-glucose sensor (FreeStyle #2 ea 03/20/24 Nathan 3 Sensor device) amlodipine 5 mg tablet 5 mg PO DAILY 90 days #90 tabs 04/04/24 lancets 28 gauge (FreeStyle #100 ea 04/06/24 Lancets) carvedilol 6.25 mg tablet 25 mg (4 x 6.25 mg) PO DAILY 90 04/10/24 days #360 tabs blood-glucose meter,continuous #1 ea 04/11/24 (Dexcom G6 Radar Mechanic) blood-glucose sensor (Dexcom G6 #3 ea 04/11/24 Sensor device) oxycodone-acetaminophen 5 mg-325 1 tab PO Q8H PRN pain 30 days #90 05/05/24 mg tablet (Percocet) tabs torsemide 20 mg tablet 40 mg (2 x 20 mg) PO DAILY 5 days 05/05/24 #10 tabs Allergies Allergy/AdvReac Type Severity Reaction Status Date / Time naproxen Allergy Severe Hives Verified 05/10/24 22:14 gabapentin AdvReac Photosensit Verified 05/10/24 22:14 ivity Review of Systems Review of Systems: Yes all other systems are reviewed and are negative [facility] Past Medical History Medical History Gas bloat syndrome Herniated disc, cervical Back disorder Arthritis Cardiomyopathy High blood pressure Edema Pneumothorax Surgical History [place] teeth extracted Family History Family History Mother Cancer Father Cancer Social History Social History Household Members: Friend(s) Housing: House Are you a primary director of critical care to a significant other at home: No Do you presently have visiting nurse or other home services: No Alcohol intake: never Patient Tobacco Use Status: Never used Tobacco e-Cigarette/Vaping Use: Never Used Advance Directives: Yes Advance Directives on File: Yes Advance Directives Date on File: 08/18/23 service: No Current occupational status: unemployed Current occupational exposures/hazards: No Gender identity: Male Cognitive needs: No Hearing needs: No Vision needs: Yes Physical Exam ED Vital Signs: Vital Signs - 24 hr 05/10/24 22:05 05/11/24 00:10 05/11/24 05:38 Temperature 97.8 F 97.5 F Pulse Rate 81 67 72 Respiratory Rate 18 18 18 Blood Pressure 188/97 H 187/101 H 190/92 H Pulse Oximetry 96 96 95 Oxygen Delivery Method Room Air Room Air Room Air BMI result Body Mass Index 24.6 Vital signs revealed an elevated blood pressure otherwise unremarkable. Exam: HEENT: Patient does have right lateral scleral hemorrhage secondary to ophthalmologic injection. Patient's left nares is normal. Right nares revealed a blood clot over the right anterior nasal septum which is not actively bleeding at this time. Procedures Epistaxis Control Time Out Performed: No Nostril: Yes right Nose prepped with: Yes cocaine 4% Direct inspection: Yes anterior source identified Direct inspection method: Yes nasal speculum Epistaxis treatment: Yes silver nitrate cautery Results of treatment: Yes bleeding controlled Complications: Yes none Medical Decision Making Medical Decision Making MDM Narrative: 52-year-old male with a history diabetes mellitus, coronary disease, congestive heart failure, chronic kidney disease, GERD who presents emergency department for evaluation of the bloody nose that started proximally 3 hours prior to coming to emergency department after he blew his nose. Patient states that he had significant amount of bleeding with blood clots. Patient was on aspirin. Patient had no unusual bruising or other bleeding. Differential diagnosis: ?Includes but is not limited to anterior epistaxis, posterior epistaxis Course: 03:32 My interpretation patient's laboratory evaluation is as follows: Chronic microcytic anemia with an H&H of 9.2 and 28. Elevated BUN creatinine of 73 and 3.30-slightly above his baseline, elevated BUN give me secondary to ingested blood. 05:43 The patient's right nares was packed cocaine soaked cotton for 40 minutes and then the nasal septal area was cauterized using silver nitrate sticks x3. Patient was given printed and verbal instructions on epistaxis and discharged home. Admission/Observation Consideration of admission/observation: Escalation of care including admission/observation considered (Yes) Lab Data 05/10/24 22:33 05/10/24 22:33 Labs: Lab Results 05/10/24 Range/Units 22:33 WBC 5.9 (4.8-10.8) X10*3/uL RBC 3.61 L (4.60-5.80) X10*6/uL Hgb 9.2 L (14.0-18.0) g/dl Hct 28.5 L (42.0-52.0) % MCV 78.9 L (80.0-98.0) fL MCH 25.5 L (27.0-33.0) pg MCHC 32.3 (31.0-36.0) g/dl RDW 16.4 H (11.0-16.0) % Plt Count 191 (160-400) X10*3/uL MPV 9.6 (9.4-12.4) fL Absolute Nucleated RBC 0.000 (0.0-0.012) X10*3/uL Nucleated RBC % (auto) 0.0 (0.0-0.2) /100WBC PT 11.0 (10.9-12.4) SEC INR 0.9 (0.9-1.1) Sodium 136 (135-145) mmol/L Potassium 4.7 (3.3-5.1) mmol/L Chloride 111 H (96-108) mmol/L Carbon Dioxide 20 L (22-29) mmol/L Anion Gap 10 L (12-20) BUN 73 H (9-16) mg/dL Creatinine 3.30 H (0.5-1.4) mg/dL Estim Creat Clear Calc 27.7 Estimated GFR 20 Random Glucose 117 H (60-115) mg/dL Calcium 8.2 L (8.4-10.2) mg/dL Total Bilirubin 0.3 (0.0-1.0) mg/dL AST 27 (5-37) U/L ALT 27 (0-40) U/L Alkaline Phosphatase 65 (39-117) U/L Total Protein 6.0 L (6.5-8.0) g/dL Albumin 3.2 L (3.5-5.0) g/dL Discharge Plan Discharge Clinical Impression: Right-sided epistaxis Patient Disposition: Home, Self-Care Instructions: Nosebleed (ED) Additional Instructions: Your right nostril was packed with cocaine and cauterized with silver nitrate. If you start bleeding again apply pressure to the front part of your nose with the nasal clip for 20 minutes. If you continue to bleed then returned to the emergency department for re-evaluation Follow-up with your doctor in 2 days. Please return to the emergency department if your symptoms get worse or if you develop any symptoms that are concerning to you. Prescriptions: No Action insulin lispro 100 unit/mL insulin pen 1 sliding scale dose subcut QIDACHS Qty: 15 0RF Rx Instructions: Before meal times administer according to this scale based on your blood glucose. Glucose 70-150: 0 unit. 151-200: 2 units. 201-250: 4 units. 251-300: 6 units. 301-350: 8 units. 351-400: 10 units. >400: 12 units and call doctor. isosorbide mononitrate 30 mg tablet extended release 24 hr 30 mg PO DAILY 90 Days Qty: 90 3RF ferrous sulfate 325 mg (65 mg iron) tablet 325 mg PO DAILY 90 Days Qty: 90 0RF calcium acetate 667 mg tablet 667 mg PO DAILY Qty: 90 1RF Rx Instructions: Take one with dinner (DME) FreeStyle Nathan 3 [place] Misc See Rx Instructions .Route Qty: 2 0RF Rx Instructions: As directed, 999 days (DME) FreeStyle Nathan 3 Sensor Device See Rx Instructions .Route Qty: 2 4RF Rx Instructions: Every 2 weeks, As directed, 28 days amlodipine 5 mg tablet 5 mg PO DAILY 90 Days Qty: 90 2RF (DME) lancets [FreeStyle Lancets] 28 gauge misc See Rx Instructions .ROUTE TID Qty: 100 0RF Rx Instructions: Use daily As directed oxycodone-acetaminophen [Percocet] 5-325 mg tablet 1 tab PO Q8H PRN (Reason: pain) 30 Days Qty: 90 0RF Rx Instructions: MassPat Verified, Partial Fill upon patient request. torsemide 20 mg tablet 40 mg PO DAILY 5 Days Qty: 10 0RF Rx Instructions: Temporary increase of dose x 5 days. hydralazine 25 mg tablet 100 mg PO TID (DME) pen needle, diabetic [BD Ultra-Fine Mini Pen Needle] 31 gauge x 3/16 needle See Rx Instructions .ROUTE .MEDSUPPLY Qty: 1200 Rx Instructions: As directed simethicone 80 mg tablet,chewable 80 mg PO BID-QID PRN (Reason: abdominal distention) 30 Days Qty: 120 2RF rosuvastatin 10 mg tablet 10 mg PO DAILY 90 Days Qty: 90 3RF (DME) FreeStyle Test Strip See Rx Instructions .Route Qty: 400 3RF Rx Instructions: Test blood sugar 4 times a day As directed, 90 days clobetasol 0.05 % cream 0.05 appl topical DAILY PRN (Reason: yes) magnesium 250 mg tablet 250 mg PO DAILY ascorbate calcium (vitamin C) 500 mg tablet 500 mg PO DAILY dapagliflozin propanediol [Farxiga] 5 mg tablet 5 mg PO QAM 90 Days Qty: 90 2RF insulin glargine [Lantus U-100 Insulin] 100 unit/mL solution 8 unit subcut QPM Qty: 10 3RF torsemide 20 mg tablet 20 mg PO DAILY carvedilol 6.25 mg tablet 25 mg PO DAILY 90 Days Qty: 360 3RF (DME) Dexcom G6 Radar Mechanic Misc See Rx Instructions .Route Qty: 1 0RF Rx Instructions: As directed, 999 days (DME) Dexcom G6 Sensor Device See Rx Instructions .Route Qty: 3 0RF Rx Instructions: As directed, 30 days Print Language: Portuguese
[2024-05-11 05:38] VITALS: BP 190/92; PULSE 72; RESP 18; TEMP 36.4; O2SAT 95
[2024-05-11] MEDS: Silver Nitrate Applicator STICK..EA. 1 APPL TOPICAL (05:39)
[2024-05-11] MEDS: Cocaine HCl 4 % 4 ML SOLUTION TOPICAL (05:40)
[2024-05-11 05:46] VITALS: BP 190/92; PULSE 72; RESP 18; TEMP 36.4; O2SAT 95
== END 2024-05-11 05:55 | disposition home or self-care (01) ==
PROVIDERS: Emergency Provider Emergency Medicine Emergency Medical Services; PCP Family Medicine
DX: R04.0 Epistaxis (principal); Z79.899 Other long term (current) drug therapy
CPT/HCPCS: 30901; 36415; 80053; 85027; 85610; 99283; 99284; C9143

== ENCOUNTER 2024-05-12 14:00 | Outpatient (RCR) | payer OTHER, SELFPAY ==
[2023-10-13 08:05] VITALS: BP 163/89; PULSE 71; O2SAT 91; BMI 24.2
--- NOTE | 2023-10-13 08:11 | PM.HEMONCCN ---
Subjective - Subjective Chief complaint: Anemia Patient: new to practice Consult date: 10/14/23 Primary Care Provider: Shmuel Youssef MD HPI - Consult Narrative Reason for consult: Anemia Narrative: Mega Oshea is a 53 year old male with longstanding diabetes, stage III chronic kidney disease, cardiomyopathy with recent admission for congestive heart failure who has been sent for evaluation of microcytic anemia. Patient states that he was admitted at [facility] about 3 months ago for congestive heart failure, he was diuresed and diagnosed with cardiomyopathy. At that time he was informed of kidney disease as well as anemia. He received blood transfusion. He had not seen a doctor for many years until this admission, he was noncompliant with his diabetes medications. For his anemia he has been started on iron supplementation. He denies history of hematochezia or melena. He has never had a colonoscopy. He does not know of any family history of anemia or thalassemia. Father had lung cancer, maternal grandfather had colon cancer. He is unemployed, he lives with his friend and caregiver, he does not have children. He denies smoking or alcohol use. He did have weight loss after recent hospitalization but he is now gaining his weight back. Review of Systems - Constitutional Reports malaise, Denies anorexia, Denies lack of energy, Denies night sweats - Cardiovascular Denies chest pain with activity, Denies irregular heart rhythm - Respiratory Denies chest congestion, Denies cough, Denies dyspnea - Gastrointestinal Denies abdominal pain, Denies black, tarry stools, Denies bright, red blood in stools, Denies change in bowel habits [facility] Medical History: Medical History (Last Reviewed 10/13/23 @ 08:02 by Beth Mustafa) Arthritis Back disorder Cardiomyopathy Edema Gas bloat syndrome Herniated disc, cervical High blood pressure Pneumothorax Family History: Family History (Last Reviewed 10/13/23 @ 08:02 by Beth Mustafa) Mother Cancer Father Cancer Surgical History: Surgical History (Last Reviewed 10/07/23 @ 16:21 by MICHEL Gregorio) [place] teeth extracted Social History: Social History (Last Updated 10/13/23 @ 08:02 by Beth Mustafa) Living Situation History: Household Members: Friend(s) Housing: House Are you a primary care program director to a significant other at home: No Do you presently have visiting nurse or other home services: No Alcohol History Details: 1. How often do you have a drink containing alcohol?: a. Never Tobacco History: Patient Tobacco Use Status: Never used Tobacco e-Cigarette/Vaping Use: Never Used Substance Use History: Use of substances other than those prescribed or required for medical reasons: No Domestic Abuse History: Have you been hit, kicked, punched, or otherwise hurt by someone within the past year? If so, by whom?: No Do you feel safe in your current relationship?: Yes Homicidal Assessment: Do you have thoughts of harming others: None Do you have a plan to hurt others: No Plan Occupation Assessmet: service: No Current occupational status: unemployed Current occupational exposures/hazards: No Sex/Gender Assessment: Gender identity: Male Home Medications and Allergies Home Medications ?Medication ?Instructions ?Recorded ?Confirmed ?Type aspirin 81 mg tablet,delayed 81 mg PO DAILY 08/18/23 10/13/23 History release carvedilol 6.25 mg tablet 12.5 mg PO DAILY 08/18/23 10/13/23 History isosorbide mononitrate 30 mg 30 mg PO DAILY 08/18/23 10/13/23 History tablet,extended release 24 hr lancets 28 gauge (FreeStyle #100 ea 08/18/23 10/13/23 History Lancets) pen needle, diabetic 31 gauge x #1,200 ea 08/18/23 10/13/23 History 3/16 (BD Ultra-Fine Mini Pen Needle) torsemide 20 mg tablet 20 mg PO DAILY 08/18/23 10/13/23 History Allergies Allergy/AdvReac Type Severity Reaction Status Date / Time naproxen Allergy Severe Hives Verified 10/13/23 08:03 gabapentin AdvReac Photosensit Verified 10/13/23 08:03 ivity Physical Exam Vital signs: Vital Signs Pulse 71 10/13/23 08:05 BP 163/89 H 10/13/23 08:05 Pulse Ox 91 L 10/13/23 08:05 O2 Del Method Room Air 10/13/23 08:05 Intake & Output 10/12/23 10/13/23 10/13/23 18:59 06:59 18:59 Other: Weight 80.8 kg [place] Weight in Grams [id number] Weight 80.8 kg Narrative: Pale looking gentleman, appears older than stated age - Constitutional Present: no acute distress, average body habitus - Routine HEENT Exam Head: Present: normal inspection Eye: Present: EOMI - Routine Neck Exam Present: supple. Absent: lymphadenopathy - Routine Respiratory Exam Present: CTAB. Absent: rales, rhonchi, stridor - Routine Cardiovascular Exam Cardiovascular: Present: RRR, S1, S2 - Routine Abdominal Exam Present: soft. Absent: organomegaly - Routine Extremities Exam Comments: Stasis dermatitis of both legs, erythema extending up to knees. Hem/Onc Consult Result - Labs CBC & Chem 7: 10/13/23 08:33 Assessment and Plan Patient Active problem list reviewed?: Yes (1) Anemia Status: Acute Assessment and plan: 1. This is a 53-year-old male with chronic diabetic nephropathy, stage III, cardiomyopathy who has been diagnosed with microcytic anemia. He is on iron supplementation, ferritin level is over 200 with iron saturation of 20%. He has reticulocytopenia, no evidence of hemolysis. He has normal vitamin B12 and folate levels, normal liver functions. No family history of thalassemia. His anemia is probably multifactorial. Related to mild iron deficiency along with anemia secondary to chronic kidney disease. I have submitted hemoglobin electrophoresis to rule out thalassemia. Submit copper level, serum electrophoresis and immunofixation. If above workup is inconclusive, I discussed further evaluation with bone marrow aspiration/biopsy. This will be arranged under CT guidance in the next few days if necessary. He was also advised to go for EGD and colonoscopy. Further recommendations to follow. I thank you very much for this referral. Follow-up in 1 month. - Time Spent With Patient Time Spent with Patient (in minutes): 45 Additional Coding: - Additional E/M codes Complex E/M visit Add On: CPT G2211
[2023-10-13 08:35] LABS: MANUAL DIFF FLAG NO
[2023-10-13 08:45] LABS: Basophils Percent Auto 0.5 % (0-2); Eosinophils Absolute Auto 0.3 X10*3/uL (0.0-0.4); Eosinophils Percent Auto 5.6 % (0-4); Hematocrit 24.7 % (42.0-52.0); Hemoglobin 8.1 g/dl (14.0-18.0); Imm Gran Abs Auto 0.02 X10*3/uL (0.00-0.03); Imm Gran Pct Auto 0.4 % (0.0-0.4); Immature Retic Fraction 7.6 % (2.3-13.4); Lymphocytes Absolute Auto 0.7 X10*3/uL (1.2-4.9); Lymphocytes Percent Auto 13.1 % (20-40); Mean Corpuscular HGB Conc 32.8 g/dl (31.0-36.0); Mean Corpuscular Hemoglobin 25.6 pg (27.0-33.0); Mean Corpuscular Volume 78.2 fL (80.0-98.0); Mean Platelet Volume 9.6 fL (9.4-12.4); Monocytes Absolute Auto 0.4 X10*3/uL (0.1-1.2); Monocytes Percent Auto 7.9 % (2-11); Neutrophils Percent Auto 72.5 % (45-73); Platelet Count 233 X10*3/uL (160-400); Red Blood Count 3.16 X10*6/uL (4.60-5.80); Red Cell Distribution Width 17.2 % (11.0-16.0); Retic HGB Equivalent 29.7 pg (30.0-35.0); Reticulocyte Percent 0.6 % (0.5-1.8); White Blood Count 5.6 X10*3/uL (4.8-10.8)
[2023-10-13 09:01] LABS: Lactate Dehydrogenase 259 U/L (118-273)
[2023-10-13 09:16] LABS: Ferritin 292 ng/mL (20-250)
[2023-10-18 22:08] LABS: IgA 243 mg/dL (47-310); IgG 1407 mg/dL (600-1640); IgM 54 mg/dL (50-300)
--- NOTE | 2023-10-25 12:19 | HE.ONCSEC ---
Faxed notes + labs to PCP
[2023-11-12 10:24] VITALS: BP 164/80; PULSE 64; TEMP 36.2; O2SAT 97; BMI 23.3
[2023-11-12 11:04] LABS: Baso%MD 0.9 %; Eos%MD 4.6 %; Hematocrit 24.9 % (42.0-52.0); Hemoglobin 8.1 g/dl (14.0-18.0); IG%MD 0.4 %; Immature Retic Fraction 4.7 % (2.3-13.4); Lymph%MD 10.8 %; Mean Corpuscular HGB Conc 32.5 g/dl (31.0-36.0); Mean Corpuscular Hemoglobin 26.6 pg (27.0-33.0); Mean Corpuscular Volume 81.9 fL (80.0-98.0); Mean Platelet Volume 9.5 fL (9.4-12.4); Mono%MD 6.6 %; Neut%MD 76.7 %; Platelet Count 226 X10*3/uL (160-400); Red Blood Count 3.04 X10*6/uL (4.60-5.80); Red Cell Distribution Width 15.7 % (11.0-16.0); Retic HGB Equivalent 29.7 pg (30.0-35.0); Reticulocyte Percent 0.9 % (0.5-1.8); Reticulocytes Absolute 0.026 X10*6/uL (0.026-0.095); White Blood Count 5.5 X10*3/uL (4.8-10.8)
--- NOTE | 2023-11-12 11:09 | P.PNHO-ONC_ITS ---
Medical Summary - Medical Summary Date of Service: 11/12/23 Chief complaint: Follow-up Primary Care Provider: Shmuel Youssef MD Medical Summary: Diagnosis: Microcytic anemia/iron deficiency/chronic kidney disease Longstanding diabetes, stage III chronic kidney disease, cardiomyopathy with recent admission for congestive heart failure who has been sent for evaluation of microcytic anemia. Patient states that he was admitted at [facility] about 3 months ago for congestive heart failure, he was diuresed and diagnosed with cardiomyopathy. At that time he was informed of kidney disease as well as anemia. He received blood transfusion. For his anemia he has been started on iron supplementation. No history of hematochezia or melena. He has never had a colonoscopy. He does not know of any family history of anemia or thalassemia. Interval History Interval history: Patient is here in follow-up. He is doing about the same and has no new complaints. He is taking iron tablet daily along with vitamin-C. He reports chronic fatigue, no acute complaints such as chest pain or shortness of breath. His appetite and weight are stable. Review of Systems - Constitutional Reports as per HPI, Denies lack of energy, Denies malaise - Cardiovascular Reports no additional cardiovascular complaints - Respiratory Reports no additional respiratory complaints - Gastrointestinal Reports no additional gastrointestinal complaints PMFSH Medical History: Medical History (Last Reviewed 10/13/23 @ 08:02 by Beth Mustafa) Arthritis Back disorder Cardiomyopathy Edema Gas bloat syndrome Herniated disc, cervical High blood pressure Pneumothorax Family History: Family History (Last Reviewed 11/05/23 @ 09:27 by MICHEL Gregorio) Mother Cancer Father Cancer Surgical History: Surgical History (Last Reviewed 11/05/23 @ 09:27 by MICHEL Gregorio) [place] teeth extracted Social History: Social History (Last Reviewed 11/05/23 @ 09:27 by MICHEL Gregorio) Living Situation History: Household Members: Friend(s) Housing: House Are you a primary healthcare risk control consultant to a significant other at home: No Do you presently have visiting nurse or other home services: No Alcohol History Details: 1. How often do you have a drink containing alcohol?: a. Never Tobacco History: Patient Tobacco Use Status: Never used Tobacco e-Cigarette/Vaping Use: Never Used Substance Use History: Use of substances other than those prescribed or required for medical reasons : No Domestic Abuse History: Have you been hit, kicked, punched, or otherwise hurt by someone within the past year? If so, by whom?: No Do you feel safe in your current relationship?: Yes Homicidal Assessment: Do you have thoughts of harming others: None Do you have a plan to hurt others: No Plan Occupation Assessmet: service: No Current occupational status: unemployed Current occupational exposures/hazards: No Sex/Gender Assessment: Gender identity: Male Oncology Screenings - ECOG Performance Status ECOG Performance Status: 1 Home Medications and Allergies Home Medications ?Medication ?Instructions ?Recorded ?Confirmed ?Type aspirin 81 mg tablet,delayed 81 mg PO DAILY 08/18/23 11/05/23 History release isosorbide mononitrate 30 mg 30 mg PO DAILY 08/18/23 11/05/23 History tablet,extended release 24 hr lancets 28 gauge (FreeStyle #100 ea 08/18/23 10/13/23 History Lancets) pen needle, diabetic 31 gauge x #1,200 ea 08/18/23 10/13/23 History 3/16 (BD Ultra-Fine Mini Pen Needle) torsemide 20 mg tablet 20 mg PO DAILY 08/18/23 11/05/23 History ascorbate calcium (vitamin C) 500 500 mg PO DAILY 11/05/23 11/05/23 History mg tablet clobetasol 0.05 % topical cream topical PRN yes 11/05/23 11/05/23 History magnesium 250 mg tablet 250 mg PO DAILY 11/05/23 11/05/23 History Allergies Allergy/AdvReac Type Severity Reaction Status Date / Time naproxen Allergy Severe Hives Verified 11/12/23 10:24 gabapentin AdvReac Photosensit Verified 11/12/23 10:24 ivity Exam Vital signs: Vital Signs Temp 97.1 F 11/12/23 10:24 Pulse 64 11/12/23 10:24 BP 164/80 H 11/12/23 10:24 Pulse Ox 97 11/12/23 10:24 O2 Del Method Room Air 11/12/23 10:24 Intake & Output 11/11/23 11/12/23 11/12/23 18:59 06:59 18:59 Other: Weight 78 kg Weight in Grams 66138 Weight 78 kg BMI result Body Mass Index 23.3 - Constitutional Present: no acute distress, average body habitus - Routine HEENT Exam Head: Present: normal inspection - Routine Neck Exam Absent: lymphadenopathy - Routine Respiratory Exam Present: CTAB. Absent: rales, rhonchi, stridor - Routine Cardiovascular Exam Cardiovascular: Present: RRR, S1, S2 - Routine Abdominal Exam Present: soft. Absent: organomegaly Data - Labs CBC & Chem 7: 11/12/23 10:59 Labs: Laboratory Last Values WBC 5.5 X10*3/uL (4.8-10.8) 11/12/23 10:59 RBC 3.04 X10*6/uL (4.60-5.80) L 11/12/23 10:59 Hgb 8.1 g/dl (14.0-18.0) L 11/12/23 10:59 Hct 24.9 % (42.0-52.0) L 11/12/23 10:59 MCV 81.9 fL (80.0-98.0) 11/12/23 10:59 MCH 26.6 pg (27.0-33.0) L 11/12/23 10:59 MCHC 32.5 g/dl (31.0-36.0) 11/12/23 10:59 RDW 15.7 % (11.0-16.0) 11/12/23 10:59 Plt Count 226 X10*3/uL (160-400) 11/12/23 10:59 MPV 9.5 fL (9.4-12.4) 11/12/23 10:59 Immature Gran % (Auto) 0.4 % (0.0-0.4) 10/13/23 08:33 Neut % (Auto) 72.5 % (45-73) 10/13/23 08:33 Lymph % (Auto) 13.1 % (20-40) L 10/13/23 08:33 [place] % (Auto) 7.9 % (2-11) 10/13/23 08:33 Eos % (Auto) 5.6 % (0-4) H 10/13/23 08:33 Baso % (Auto) 0.5 % (0-2) 10/13/23 08:33 Lymph # (Auto) 0.7 X10*3/uL (1.2-4.9) L 10/13/23 08:33 [place] # (Auto) 0.4 X10*3/uL (0.1-1.2) 10/13/23 08:33 Eos # (Auto) 0.3 X10*3/uL (0.0-0.4) 10/13/23 08:33 Baso # (Auto) 0.0 X10*3/uL (0.0-0.2) 10/13/23 08:33 Abs Immat Gran (auto) 0.02 X10*3/uL (0.00-0.03) 10/13/23 08:33 Absolute Neuts (auto) 4.0 x10*3/uL (2.0-8.3) 10/13/23 08:33 Absolute Nucleated RBC 0.000 X10*3/uL (0.0-0.012) 11/12/23 10:59 Nucleated RBC % (auto) 0.0 /100WBC (0.0-0.2) 11/12/23 10:59 Absolute Retic 0.026 X10*6/uL (0.026-0.095) 11/12/23 10:59 Percent Retic 0.9 % (0.5-1.8) 11/12/23 10:59 Immature Retic Fraction 4.7 % (2.3-13.4) 11/12/23 10:59 Retic Hgb Equivalent 29.7 pg (30.0-35.0) L 11/12/23 10:59 Ferritin 292 ng/mL (20-250) H 10/13/23 08:33 Lactate Dehydrogenase 259 U/L (118-273) 10/13/23 08:33 IgG Total 1407 mg/dL (600-1640) 10/13/23 08:33 IgA Total 243 mg/dL (47-310) 10/13/23 08:33 IgM 54 mg/dL (50-300) 10/13/23 08:33 PETER Interpretation SEE NOTE 10/13/23 08:33 Assessment and Plan Patient Active problem list reviewed?: Yes (1) Anemia Status: Acute Assessment and plan: 1. This is a 53-year-old male with chronic diabetic nephropathy, stage III, cardiomyopathy who has been diagnosed with microcytic anemia. He is on iron supplementation, ferritin level is over 200 with iron saturation of 20%. He has reticulocytopenia, no evidence of hemolysis. He has normal vitamin B12 and folate levels, normal liver functions. No family history of thalassemia. His anemia is probably multifactorial. Related to mild iron deficiency along with anemia secondary to chronic kidney disease. Hemoglobin electrophoresis was normal. Serum copper level was normal. Slight improvement in anemia with oral iron supplementation. I will start him on DARIA therapy. I discussed possible side effects such as hypertension and increased risk of thrombosis. If this is not helpful, I discussed further evaluation with bone marrow aspiration/biopsy. Follow-up in 1 month. - Time Spent With Patient Time Spent with Patient (in minutes): 20 Additional Coding: - Additional E/M codes Complex E/M visit Add On: CPT G2211
[2023-11-12 11:32] LABS: Band Neutrophils Percent 1 % (3-5); Basophils Abs Manual 0.1 X10*3/uL (0.0-0.2); Basophils Percent Manual 1 % (0-2); Eosinophils Absolute Manual 0.2 X10*3/uL (0.0-0.4); Eosinophils Percent Manual 4 % (0-4); Lymphocytes Absolute Manual 0.6 X10*3/uL (1.2-4.9); Lymphocytes Percent Manual 11 % (20-40); Monocytes Absolute Manual 0.3 X10*3/uL (0.1-1.2); Monocytes Percent Manual 5 % (2-11); Neutrophils Absolute Manual 4.3 X10*3/uL (2.0-8.3); Neutrophils Percent Manual 78 % (45-73)
[2023-11-12 11:35] LABS: Burr Cells 2+ (3-5) /OIF; Hypochromasia 1+ (5-14) /OIF; Ovalocytes 1+ (5-14) /OIF; RBC Morphology NOTED
[2023-11-12 11:36] LABS: Platelet Estimate NORMAL (NORMAL); Platelet Morphology Comment NORMAL
[2023-11-12 11:47] LABS: Lactate Dehydrogenase 262 U/L (118-273)
--- NOTE | 2023-11-12 13:25 | HO.HEMONCPA ---
Addendum entered by Page Loco 11/16/23 14:15: SHARMIN APPROVED PROCRIT [id number] 40,000 UNITS MONTHLY AUTH [id number] DOS 11/16/23 - 11/15/24 OK TO SCHEDULE Original Note: SHARMIN PENDING FOR PROCRIT [id number] 40,000 UNITS MONTHLY WAITING DECISION FROM [facility] CONF # [id number]
--- NOTE | 2023-11-12 14:35 | MHC.HEMONCMA ---
pt was seen today for anemia f/u, vss, labs. pt will f/u with provider in 1 month.
[2023-11-13 13:24] LABS: Erythropoietin (EPO) 6.7 mIU/mL (2.6-18.5)
[2023-11-19 15:25] LABS: MANUAL DIFF FLAG NO
[2023-11-19 15:28] LABS: Basophils Percent Auto 0.5 % (0-2); Eosinophils Absolute Auto 0.3 X10*3/uL (0.0-0.4); Eosinophils Percent Auto 4.5 % (0-4); Hematocrit 25.3 % (42.0-52.0); Hemoglobin 8.4 g/dl (14.0-18.0); Imm Gran Abs Auto 0.01 X10*3/uL (0.00-0.03); Imm Gran Pct Auto 0.2 % (0.0-0.4); Lymphocytes Absolute Auto 0.5 X10*3/uL (1.2-4.9); Lymphocytes Percent Auto 8.6 % (20-40); Mean Corpuscular HGB Conc 33.2 g/dl (31.0-36.0); Mean Corpuscular Hemoglobin 27.1 pg (27.0-33.0); Mean Corpuscular Volume 81.6 fL (80.0-98.0); Mean Platelet Volume 9.4 fL (9.4-12.4); Monocytes Absolute Auto 0.6 X10*3/uL (0.1-1.2); Monocytes Percent Auto 9.4 % (2-11); Neutrophils Absolute Auto 4.6 x10*3/uL (2.0-8.3); Neutrophils Percent Auto 76.8 % (45-73); Platelet Count 234 X10*3/uL (160-400)
[2023-11-19 16:07] VITALS: BP 154/86; PULSE 67; RESP 20; TEMP 36.3; O2SAT 98
[2023-12-24 11:47] VITALS: BP 181/88; PULSE 67; TEMP 36.1; O2SAT 100; BMI 23.1
[2023-12-24 12:12] LABS: MANUAL DIFF FLAG NO
--- NOTE | 2023-12-24 12:15 | P.PNHO-ONC_ITS ---
Medical Summary - Medical Summary Date of Service: 12/24/23 Chief complaint: Follow-up Primary Care Provider: Shmuel Youssef MD Medical Summary: Diagnosis: Microcytic anemia/iron deficiency/chronic kidney disease Longstanding diabetes, stage III chronic kidney disease, cardiomyopathy with recent admission for congestive heart failure who has been sent for evaluation of microcytic anemia. Patient states that he was admitted at [facility] about 3 months ago for congestive heart failure, he was diuresed and diagnosed with cardiomyopathy. At that time he was informed of kidney disease as well as anemia. He received blood transfusion. For his anemia he has been started on iron supplementation. No history of hematochezia or melena. He has never had a colonoscopy. He does not know of any family history of anemia or thalassemia. Interval History Interval history: Patient is here in follow-up. He is doing about the same and has no new complaints. He is taking iron tablet daily along with vitamin-C. He reports chronic fatigue, no acute complaints such as chest pain or shortness of breath. His appetite and weight are stable. He is waiting referral for Gastroenterology. He has an appointment with ENT coming up. Review of Systems - Constitutional Denies weight loss - Eyes Denies blurry vision - Cardiovascular Denies chest pain - Respiratory Denies cough PMFSH Medical History: Medical History (Last Reviewed 12/24/23 @ 11:52 by Dania Ballesteros) Arthritis Back disorder Cardiomyopathy Edema Gas bloat syndrome Herniated disc, cervical High blood pressure Pneumothorax Family History: Family History (Last Reviewed 12/24/23 @ 11:52 by Dania Ballesteros) Mother Cancer Father Cancer Surgical History: Surgical History (Last Reviewed 12/24/23 @ 11:52 by Dania Ballesteros) [place] teeth extracted Social History: Social History (Last Reviewed 12/24/23 @ 11:52 by Dania Ballesteros) Living Situation History: Household Members: Friend(s) Housing: House Are you a primary director of primary care to a significant other at home: No Do you presently have visiting nurse or other home services: No Alcohol History Details: 1. How often do you have a drink containing alcohol?: a. Never Tobacco History: Patient Tobacco Use Status: Never used Tobacco e-Cigarette/Vaping Use: Never Used Substance Use History: Use of substances other than those prescribed or required for medical reasons : No Domestic Abuse History: Have you been hit, kicked, punched, or otherwise hurt by someone within the past year? If so, by whom?: No Do you feel safe in your current relationship?: Yes Homicidal Assessment: Do you have thoughts of harming others: None Do you have a plan to hurt others: No Plan Occupation Assessmet: service: No Current occupational status: unemployed Current occupational exposures/hazards: No Sex/Gender Assessment: Gender identity: Male Home Medications and Allergies Home Medications ?Medication ?Instructions ?Recorded ?Confirmed ?Type aspirin 81 mg tablet,delayed 81 mg PO DAILY 08/18/23 12/24/23 History release lancets 28 gauge (FreeStyle #100 ea 08/18/23 12/24/23 History Lancets) pen needle, diabetic 31 gauge x #1,200 ea 08/18/23 12/24/23 History 3/16 (BD Ultra-Fine Mini Pen Needle) torsemide 20 mg tablet 20 mg PO DAILY 08/18/23 12/24/23 History ascorbate calcium (vitamin C) 500 500 mg PO DAILY 11/05/23 12/24/23 History mg tablet clobetasol 0.05 % topical cream 0.05 appl topical DAILY PRN yes 11/05/23 12/24/23 History magnesium 250 mg tablet 250 mg PO DAILY 11/05/23 12/24/23 History Allergies Allergy/AdvReac Type Severity Reaction Status Date / Time naproxen Allergy Severe Hives Verified 12/24/23 11:47 gabapentin AdvReac Photosensit Verified 12/24/23 11:47 ivity Exam Vital signs: Vital Signs Temp 96.9 F 12/24/23 11:47 Pulse 67 12/24/23 11:47 Resp 20 11/19/23 16:07 BP 181/88 H 12/24/23 11:47 Pulse Ox 100 12/24/23 11:47 O2 Del Method Room Air 12/24/23 11:47 Intake & Output 12/23/23 12/24/23 12/24/23 18:59 06:59 18:59 Other: Weight 77.1 kg Weight in Grams [id number] Weight 77.1 kg BMI result Body Mass Index 23.1 - Constitutional Present: no acute distress, average body habitus - Routine HEENT Exam Head: Present: normal inspection - Routine Neck Exam Absent: lymphadenopathy - Routine Respiratory Exam Present: CTAB. Absent: rales, rhonchi, stridor - Routine Cardiovascular Exam Cardiovascular: Present: RRR, S1, S2 - Routine Abdominal Exam Present: soft. Absent: organomegaly Data - Labs CBC & Chem 7: 12/24/23 12:11 Assessment and Plan Patient Active problem list reviewed?: Yes (1) Anemia Status: Chronic Assessment and plan: 1. This is a 53-year-old male with chronic diabetic nephropathy, stage III, cardiomyopathy who has been diagnosed with microcytic anemia. He is on iron supplementation, ferritin level is over 200 with iron saturation of 20%. He has reticulocytopenia, no evidence of hemolysis. He has normal vitamin B12 and folate levels, normal liver functions. No family history of thalassemia. His anemia is probably multifactorial. Related to mild iron deficiency along with anemia secondary to chronic kidney disease. Hemoglobin electrophoresis was normal. Serum copper level was normal. Slight improvement in anemia with oral iron supplementation. He was started on DARIA therapy, Procrit from 10/2023. Anemia is improving. He says he had echocardiogram which looked good. He is going for ENT evaluation for his hoarseness of voice, vocal cord palsy. He is waiting to see senior stack engineer about screening colonoscopy. Procrit will be administered today. Follow-up in 1 month. - Time Spent With Patient Time Spent with Patient (in minutes): 20 Additional Coding: - Additional E/M codes Complex E/M visit Add On: CPT G2211
[2023-12-24 12:16] LABS: Basophils Percent Auto 0.6 % (0-2); Eosinophils Absolute Auto 0.3 X10*3/uL (0.0-0.4); Eosinophils Percent Auto 5.7 % (0-4); Hematocrit 27.8 % (42.0-52.0); Hemoglobin 9.2 g/dl (14.0-18.0); Imm Gran Abs Auto 0.01 X10*3/uL (0.00-0.03); Imm Gran Pct Auto 0.2 % (0.0-0.4); Lymphocytes Absolute Auto 0.6 X10*3/uL (1.2-4.9); Lymphocytes Percent Auto 13.1 % (20-40); Mean Corpuscular HGB Conc 33.1 g/dl (31.0-36.0); Mean Corpuscular Hemoglobin 26.3 pg (27.0-33.0); Mean Corpuscular Volume 79.4 fL (80.0-98.0); Mean Platelet Volume 9.5 fL (9.4-12.4); Monocytes Absolute Auto 0.3 X10*3/uL (0.1-1.2); Monocytes Percent Auto 7.2 % (2-11); Neutrophils Absolute Auto 3.5 x10*3/uL (2.0-8.3); Neutrophils Percent Auto 73.2 % (45-73); Platelet Count 190 X10*3/uL (160-400); Red Cell Distribution Width 14.2 % (11.0-16.0); White Blood Count 4.7 X10*3/uL (4.8-10.8)
[2023-12-24] MEDS: Epoetin Alfa 40,000 UNIT/ML VIAL 40000 UNIT SUBCUT (12:32)
[2023-12-24 12:43] LABS: Iron 60 mcg/dL (45-160); Percent Iron Saturation 29 % (15-50); Total Iron Binding Capacity 207 mcg/dL (228-428); Unsaturated Iron Binding 147 ug/dL
[2023-12-24 12:53] LABS: Ferritin 265 ng/mL (20-250)
[2023-12-24 13:07] LABS: Folate 9.8 ng/mL (> or = 4.0); Vitamin B12 580 pg/mL (200-900)
--- NOTE | 2023-12-24 13:11 | MHC.HEMONCMA ---
pt presents in the office today for anemia f/u, vss, labs. pt will f/u with provider in 1 month.
--- NOTE | 2023-12-24 18:08 | MHC.HEMONC ---
Pt was in today for hem f/u and Qmonthly procrit inj, nurse noted PA is active, labs drawn/reviewed, Hgb resulted at 9.2, VSS, Dr. Mora was made aware, nurse admin procrit 40,000 units SC to pt's RUE, which was well-tolerated. Pt was given copy of labs and was told to expect a call to schedule his next inj appt, flight kitchen manager Nubia was asked to make next monthly inj appt.
[2024-01-21 14:34] VITALS: BP 162/80; PULSE 69; TEMP 36.6; O2SAT 98; BMI 23.1
[2024-01-21 14:47] LABS: MANUAL DIFF FLAG NO
--- NOTE | 2024-01-21 14:50 | PM.HEMONCPN ---
Medical Summary - Medical Summary Date of Service: 01/21/24 Chief complaint: Follow-up Primary Care Provider: Shmuel Youssef MD Medical Summary: Diagnosis: Microcytic anemia/iron deficiency/chronic kidney disease Longstanding diabetes, stage III chronic kidney disease, cardiomyopathy with recent admission for congestive heart failure who has been sent for evaluation of microcytic anemia. Patient states that he was admitted at [facility] about 3 months ago for congestive heart failure, he was diuresed and diagnosed with cardiomyopathy. At that time he was informed of kidney disease as well as anemia. He received blood transfusion. For his anemia he has been started on iron supplementation. No history of hematochezia or melena. He has never had a colonoscopy. He does not know of any family history of anemia or thalassemia. Interval History Interval history: Patient is here in follow-up. He is doing about the same and has no new complaints. He is taking iron tablet daily along with vitamin-C. He reports chronic fatigue, no acute complaints such as chest pain or shortness of breath. His appetite and weight are stable. He is waiting referral for Gastroenterology. He is scheduled to undergo surgery on his vocal cord at [facility] next month. [facility] Medical History: Medical History (Last Reviewed 01/21/24 @ 14:33 by Dania Ballesteros) Arthritis Back disorder Cardiomyopathy Edema Gas bloat syndrome Herniated disc, cervical High blood pressure Pneumothorax Family History: Family History (Last Reviewed 01/21/24 @ 14:33 by Dania Ballesteros) Mother Cancer Father Cancer Surgical History: Surgical History (Last Reviewed 01/21/24 @ 14:33 by Dania Ballesteros) [place] teeth extracted Social History: Social History (Last Reviewed 01/21/24 @ 14:33 by Dania Ballesteros) Living Situation History: Household Members: Friend(s) Housing: House Are you a primary career technical education instructor to a significant other at home: No Do you presently have visiting nurse or other home services: No Tobacco History: Patient Tobacco Use Status: Never used Tobacco e-Cigarette/Vaping Use: Never Used Occupation Assessmet: service: No Current occupational status: unemployed Current occupational exposures/hazards: No Sex/Gender Assessment: Gender identity: Male Home Medications and Allergies Home Medications ?Medication ?Instructions ?Recorded ?Confirmed ?Type aspirin 81 mg tablet,delayed 81 mg PO DAILY 08/18/23 01/21/24 History release lancets 28 gauge (FreeStyle #100 ea 08/18/23 01/21/24 History Lancets) pen needle, diabetic 31 gauge x #1,200 ea 08/18/23 01/21/24 History 3/16 (BD Ultra-Fine Mini Pen Needle) torsemide 20 mg tablet 20 mg PO DAILY 08/18/23 01/21/24 History ascorbate calcium (vitamin C) 500 500 mg PO DAILY 11/05/23 01/21/24 History mg tablet clobetasol 0.05 % topical cream 0.05 appl topical DAILY PRN yes 11/05/23 01/21/24 History magnesium 250 mg tablet 250 mg PO DAILY 11/05/23 01/21/24 History hydralazine 25 mg tablet 100 mg PO QID 01/21/24 01/21/24 History Allergies Allergy/AdvReac Type Severity Reaction Status Date / Time naproxen Allergy Severe Hives Verified 01/20/24 09:39 gabapentin AdvReac Photosensit Verified 01/20/24 09:39 ivity Exam Vital signs: Vital Signs Temp 97.8 F 01/21/24 14:34 Pulse 69 01/21/24 14:34 Resp 20 11/19/23 16:07 BP 162/80 H 01/21/24 14:34 Pulse Ox 98 01/21/24 14:34 O2 Del Method Room Air 01/21/24 14:34 Intake & Output 01/20/24 01/21/24 01/21/24 18:59 06:59 18:59 Other: Weight 77.1 kg [place] Weight in Grams [id number] Weight 77.1 kg BMI result Body Mass Index 23.1 - Constitutional Present: no acute distress, average body habitus - Routine HEENT Exam Head: Present: normal inspection - Routine Neck Exam Absent: lymphadenopathy - Routine Respiratory Exam Present: CTAB. Absent: rales, rhonchi, stridor - Routine Cardiovascular Exam Cardiovascular: Present: RRR, S1, S2 - Routine Abdominal Exam Present: soft. Absent: organomegaly Data - Labs CBC & Chem 7: 01/21/24 14:43 Assessment and Plan Patient Active problem list reviewed?: Yes (1) Anemia Status: Chronic Assessment and plan: 1. This is a 53-year-old male with chronic diabetic nephropathy, stage III, cardiomyopathy who has been diagnosed with microcytic anemia. He is on iron supplementation, ferritin level is over 200 with iron saturation of 20%. He has reticulocytopenia, no evidence of hemolysis. He has normal vitamin B12 and folate levels, normal liver functions. No family history of thalassemia. His anemia is probably multifactorial. Related to mild iron deficiency along with anemia secondary to chronic kidney disease. Hemoglobin electrophoresis was normal. Serum copper level was normal. Slight improvement in anemia with oral iron supplementation. He was started on DARIA therapy, Procrit from 10/2023. Anemia is improving. He says he had echocardiogram which looked good. He had ENT evaluation for his hoarseness of voice, vocal cord palsy. He is going to have surgery at [facility] on his vocal cords soon. He is waiting to see instructor product inspection about screening colonoscopy. Procrit will be administered today. Follow-up in 1 month. - Time Spent With Patient Time Spent with Patient (in minutes): 20 Additional Coding: - Additional E/M codes Complex E/M visit Add On: CPT G2211
[2024-01-21 14:53] LABS: Basophils Percent Auto 0.7 % (0-2); Eosinophils Absolute Auto 0.3 X10*3/uL (0.0-0.4); Eosinophils Percent Auto 4.8 % (0-4); Hematocrit 30.3 % (42.0-52.0); Hemoglobin 9.7 g/dl (14.0-18.0); Imm Gran Abs Auto 0.01 X10*3/uL (0.00-0.03); Imm Gran Pct Auto 0.2 % (0.0-0.4); Lymphocytes Absolute Auto 0.7 X10*3/uL (1.2-4.9); Lymphocytes Percent Auto 11.4 % (20-40); Mean Corpuscular Hemoglobin 25.5 pg (27.0-33.0); Mean Corpuscular Volume 79.5 fL (80.0-98.0); Mean Platelet Volume 9.4 fL (9.4-12.4); Monocytes Absolute Auto 0.3 X10*3/uL (0.1-1.2); Monocytes Percent Auto 5.5 % (2-11); Neutrophils Absolute Auto 4.5 x10*3/uL (2.0-8.3); Neutrophils Percent Auto 77.4 % (45-73); Platelet Count 248 X10*3/uL (160-400); Red Blood Count 3.81 X10*6/uL (4.60-5.80); Red Cell Distribution Width 14.8 % (11.0-16.0); White Blood Count 5.8 X10*3/uL (4.8-10.8)
[2024-01-21] MEDS: Epoetin Alfa 40,000 UNIT/ML VIAL 40000 UNIT SUBCUT (15:16)
--- NOTE | 2024-01-21 16:18 | MHC.HEMONCMA ---
pt presents in the office today for anemia f/u, vss, labs.
--- NOTE | 2024-01-21 17:04 | MHC.HEMONC ---
Pt was in today for Monthly procrit inj and Hem f/u appt, nurse verified PA is active, labs drawn/reviewed, Hgb resulted at 9.7, VSS, Dr. Mora notified, pt was pleased his Hgb is improving w/ each subsequent injection. Nurse admin procrit 40,000 units SC to pt's RUE, which was well-tolerated. Pt was given copy of labs and calendar of upcoming monthly inj appts.
[2024-02-18 14:32] LABS: Basophils Percent Auto 0.4 % (0-2); Eosinophils Absolute Auto 0.4 X10*3/uL (0.0-0.4); Eosinophils Percent Auto 8.7 % (0-4); Hemoglobin 10.9 g/dl (14.0-18.0); Imm Gran Abs Auto 0.01 X10*3/uL (0.00-0.03); Imm Gran Pct Auto 0.2 % (0.0-0.4); Lymphocytes Absolute Auto 0.6 X10*3/uL (1.2-4.9); Lymphocytes Percent Auto 13.7 % (20-40); MANUAL DIFF FLAG SCAN; Mean Corpuscular Hemoglobin 25.7 pg (27.0-33.0); Mean Corpuscular Volume 77.8 fL (80.0-98.0); Mean Platelet Volume 9.7 fL (9.4-12.4); Monocytes Absolute Auto 0.2 X10*3/uL (0.1-1.2); Neutrophils Absolute Auto 3.3 x10*3/uL (2.0-8.3); Platelet Count 205 X10*3/uL (160-400); Red Blood Count 4.24 X10*6/uL (4.60-5.80); Red Cell Distribution Width 15.6 % (11.0-16.0); SCAN SMEAR FLAG 1; White Blood Count 4.6 X10*3/uL (4.8-10.8)
[2024-02-18 14:57] LABS: SLIDE REVIEW VERIFIED
--- NOTE | 2024-02-18 16:42 | MHC.HEMONC ---
Hgb 10.9, so no procrit needed. Next injection in 1 month. Calendar given
[2024-03-17 14:53] LABS: MANUAL DIFF FLAG NO
[2024-03-17 14:56] LABS: Basophils Absolute Auto 0.1 X10*3/uL (0.0-0.2); Basophils Percent Auto 0.8 % (0-2); Eosinophils Absolute Auto 0.3 X10*3/uL (0.0-0.4); Eosinophils Percent Auto 4.7 % (0-4); Hematocrit 31.2 % (42.0-52.0); Hemoglobin 10.1 g/dl (14.0-18.0); Imm Gran Abs Auto 0.01 X10*3/uL (0.00-0.03); Imm Gran Pct Auto 0.2 % (0.0-0.4); Lymphocytes Absolute Auto 0.5 X10*3/uL (1.2-4.9); Lymphocytes Percent Auto 7.9 % (20-40); Mean Corpuscular HGB Conc 32.4 g/dl (31.0-36.0); Mean Corpuscular Hemoglobin 25.1 pg (27.0-33.0); Mean Corpuscular Volume 77.6 fL (80.0-98.0); Mean Platelet Volume 9.5 fL (9.4-12.4); Monocytes Absolute Auto 0.4 X10*3/uL (0.1-1.2); Monocytes Percent Auto 5.3 % (2-11); Neutrophils Absolute Auto 5.3 x10*3/uL (2.0-8.3); Neutrophils Percent Auto 81.1 % (45-73); Platelet Count 205 X10*3/uL (160-400); Red Blood Count 4.02 X10*6/uL (4.60-5.80); Red Cell Distribution Width 16.1 % (11.0-16.0); White Blood Count 6.6 X10*3/uL (4.8-10.8)
[2024-03-17 15:02] LABS: INTERNATIONAL NORM RATIO 0.9 (0.9-1.1); Prothrombin Time 10.7 SEC (10.9-12.4)
[2024-03-17 15:03] LABS: Estimated Average Glucose 117 mg/dL; Hemoglobin A1C 100.6286 umol/L; Hemoglobin A1c % 5.7 % (<6.0); Total Hemoglobin (HGBA1C) 2597.1347 umol/L
[2024-03-17 15:04] LABS: Partial Thromboplastin Time 32.6 SEC (26.0-36.8)
[2024-03-17 15:10] LABS: Alanine Aminotransferase 44 U/L (0-40); Albumin Level 3.1 g/dL (3.5-5.0); Alkaline Phosphatase 72 U/L (39-117); Anion Gap 12 (12-20); Aspartate Amino Transferase 33 U/L (5-37); Bilirubin Total 0.3 mg/dL (0.0-1.0); Blood Urea Nitrogen 60 mg/dL (9-16); Calcium 8.8 mg/dL (8.4-10.2); Carbon Dioxide 20 mmol/L (22-29); Chloride 108 mmol/L (96-108); Estimated Glomerular Filt Rate 22; Glucose Random 183 mg/dL (60-115); Phosphorus 4.7 mg/dL (2.7-4.5); Potassium 4.5 mmol/L (3.3-5.1); Sodium 135 mmol/L (135-145); Total Protein 5.7 g/dL (6.5-8.0)
[2024-03-17 15:16] VITALS: BP 137/68; PULSE 70; RESP 16; O2SAT 98
[2024-03-17 15:21] LABS: Parathyroid Hormone Intact 26.4 pg/mL (8.7-77.1)
[2024-03-17 15:24] LABS: Appearance Urine Clear; Color Urine Yellow; Glucose Urine UA 500 mg/dL (Negative); Leukocyte Esterase Urine Negative (Negative); Nitrite Urine Negative (Negative); Specific Gravity - Urine 1.015 (1.005-1.025); UMIC TRIGGER UA YES; Urine Blood Negative (Negative); Urine Ketones Negative (Negative); Urine Protein 300 (3+) mg/dL (Neg-Trace)
[2024-03-17 15:24] LABS: B Type Natriuretic Peptide 635 pg/mL (<100)
[2024-03-17] MEDS: Epoetin Alfa 40,000 UNIT/ML VIAL 40000 UNIT SUBCUT (15:26)
--- NOTE | 2024-03-17 15:29 | MHC.HEMONC ---
Monthly Procrit. Hgb 10.1, Dr. Mora notified. Procrit 40,000 units s/c administered to left upper arm and well tolerated. Calender provided with next appt.
[2024-03-17 15:36] LABS: Bacteria Urine None Seen (None Seen); Granular Casts Urine Present; RBC Urine 0-2 /HPF (0-2); Squamous Epithelial Cell Urine 0-2 /HPF (0-2); WBC Urine 0-5 /HPF (0-5)
[2024-04-14 14:33] LABS: MANUAL DIFF FLAG NO
[2024-04-14 14:43] LABS: Basophils Absolute Auto 0.1 X10*3/uL (0.0-0.2); Basophils Percent Auto 0.7 % (0-2); Eosinophils Absolute Auto 0.5 X10*3/uL (0.0-0.4); Eosinophils Percent Auto 6.5 % (0-4); Hematocrit 32.6 % (42.0-52.0); Hemoglobin 10.2 g/dl (14.0-18.0); Imm Gran Abs Auto 0.02 X10*3/uL (0.00-0.03); Imm Gran Pct Auto 0.3 % (0.0-0.4); Lymphocytes Absolute Auto 0.9 X10*3/uL (1.2-4.9); Lymphocytes Percent Auto 12.2 % (20-40); Mean Corpuscular HGB Conc 31.3 g/dl (31.0-36.0); Mean Corpuscular Hemoglobin 25.1 pg (27.0-33.0); Mean Corpuscular Volume 80.1 fL (80.0-98.0); Mean Platelet Volume 9.6 fL (9.4-12.4); Monocytes Absolute Auto 0.8 X10*3/uL (0.1-1.2); Monocytes Percent Auto 10.8 % (2-11); Neutrophils Percent Auto 69.5 % (45-73); Platelet Count 242 X10*3/uL (160-400); Red Blood Count 4.07 X10*6/uL (4.60-5.80); Red Cell Distribution Width 16.9 % (11.0-16.0); White Blood Count 7.1 X10*3/uL (4.8-10.8)
[2024-04-14 14:56] VITALS: BP 163/77; PULSE 72; RESP 20; TEMP 36.4; O2SAT 98
[2024-04-14] MEDS: Epoetin Alfa 40,000 UNIT/ML VIAL 40000 UNIT SUBCUT (15:10)
--- NOTE | 2024-04-14 15:12 | MHC.HEMONC ---
Here for monthly procrit injection. Hgb 10.2, procrit 40,000units sc given left arm and tolerated well. Calendar given for next injection.
[2024-05-12 14:12] LABS: MANUAL DIFF FLAG NO
[2024-05-12 14:21] LABS: Basophils Percent Auto 0.6 % (0-2); Eosinophils Absolute Auto 0.4 X10*3/uL (0.0-0.4); Eosinophils Percent Auto 8.8 % (0-4); Hemoglobin 9.1 g/dl (14.0-18.0); Imm Gran Abs Auto 0.01 X10*3/uL (0.00-0.03); Imm Gran Pct Auto 0.2 % (0.0-0.4); Lymphocytes Absolute Auto 0.7 X10*3/uL (1.2-4.9); Lymphocytes Percent Auto 13.9 % (20-40); Mean Corpuscular HGB Conc 32.5 g/dl (31.0-36.0); Mean Corpuscular Hemoglobin 25.9 pg (27.0-33.0); Mean Corpuscular Volume 79.5 fL (80.0-98.0); Mean Platelet Volume 9.6 fL (9.4-12.4); Monocytes Absolute Auto 0.4 X10*3/uL (0.1-1.2); Monocytes Percent Auto 8.8 % (2-11); Neutrophils Absolute Auto 3.3 x10*3/uL (2.0-8.3); Neutrophils Percent Auto 67.7 % (45-73); Platelet Count 197 X10*3/uL (160-400); Red Blood Count 3.52 X10*6/uL (4.60-5.80); Red Cell Distribution Width 16.4 % (11.0-16.0); White Blood Count 4.9 X10*3/uL (4.8-10.8)
[2024-05-12 14:39] VITALS: BP 177/81; PULSE 70; RESP 16; O2SAT 96
--- NOTE | 2024-05-12 16:26 | MHC.HEMONC ---
Here for monthly procrit. Hgb 9.1. He does report going to ED for bloody nose. He was hypertensive in ED and is following up with his pcp on Wednesday. Procrit 20,000units given right arm and tolerated well. Next injection in 1 month. Calendar given
== END 2024-06-22 12:22 | disposition home or self-care (01) ==
LOC: HO.ONC 14:00
PROVIDERS: Internal Medicine Hypertension Specialist; PCP Family Medicine; Referring Provider Family Medicine; Visit Provider Internal Medicine
DX: E11.22 Type 2 diabetes mellitus with diabetic chronic kidney disease (principal); N18.30 Chronic kidney disease, stage 3 unspecified; D63.1 Anemia in chronic kidney disease; Z79.899 Other long term (current) drug therapy
CPT/HCPCS: 36415; 80053; 81001; 82607; 82668; 82728; 82746; 82784; 83036; 83540; 83615; 83880; 83970; 84100; 85007; 85025; 85027; 85045; 85610; 85730; 86334; 86850; 86900; 86901; 96372; 99202; 99212; G2211; J0885

== ENCOUNTER 2024-05-15 15:44 | Outpatient (AMB) | payer OTHER, SELFPAY ==
[2024-05-15 15:45] VITALS: BP 168/80; PULSE 80; O2SAT 95; BMI 24.1
--- NOTE | 2024-05-15 15:45 | HO.NEPHOV_ITS ---
Vital Signs 05/15/24 15:45 05/15/24 16:00 Height 6 ft Weight 178 lb BMI 24.1 BP 168/80 H 150/70 H Blood Pressure Location Lt brachial Lt brachial Position Sitting Right Lateral Pulse 80 Pulse Source Pulse Oximeter Pulse Oximetry (%) 95 Oxygen Delivery Method Room Air Intake Visit Reasons: [facility] [place] [facility] [place] Worker Required: No Accompanied by: Spouse Allergies naproxen Allergy (Severe, Verified 05/15/24 15:47) Hives gabapentin Adverse Reaction (Verified 05/15/24 15:47) Photosensitivity Medication List - Last Reconciled 05/15/24 by Magdaleno Cohen MD amlodipine 5 mg PO DAILY 90 days ascorbate calcium (vitamin C) 500 mg PO DAILY aspirin (Adult Aspirin Regimen) 81 mg PO DAILY blood sugar diagnostic (FreeStyle Test strips) Test blood sugar 4 times a day As directed, 90 days blood-glucose meter,continuous (FreeStyle Nathan 3 [place]) As directed, 999 days blood-glucose meter,continuous (Dexcom G6 Laboratory Technologist) As directed, 999 days blood-glucose sensor (FreeStyle Nathan 3 Sensor device) Every 2 weeks, As directed, 28 days blood-glucose sensor (Dexcom G6 Sensor device) As directed, 30 days calcium acetate 667 mg PO DAILY carvedilol 25 mg (4 x 6.25 mg) PO DAILY 90 days clobetasol 0.05% 0.05 appl topical DAILY PRN dapagliflozin propanediol (Farxiga) 5 mg PO QAM 90 days ferrous sulfate 325 mg PO DAILY 90 days hydralazine 100 mg PO TID insulin glargine (Lantus U-100 Insulin) 8 units (0.08 mL) subcut QPM insulin lispro 1 sliding scale dose subcut QIDACHS isosorbide mononitrate ER 30 mg PO DAILY 90 days lancets (FreeStyle Lancets) Use daily As directed magnesium 250 mg PO DAILY oxycodone-acetaminophen 5-325 mg (Percocet) 1 tab PO Q8H PRN 30 days pen needle, diabetic (BD Ultra-Fine Mini Pen Needle) As directed rosuvastatin 10 mg PO DAILY 90 days simethicone 80 mg PO BID-QID PRN 30 days torsemide 20 mg PO DAILY HPI Comments Details: Mega is a 53 -year-old man with a history of longstanding diabetes mellitus. He has been referred for renal evaluation since his serum creatinine is around 2.1 mg/dL. He was seen by vascular surgeon Dr. Avery and subsequently referred due to skin lesions Mega primarily complains of leg pain. He has not on any NSAIDs. 11/05/23 Doing better Eye sight is better post retinal injection 01/10/2024. Blood sugar is better controlled. He is waiting for surgery on February 08. Has abdominal discomfort on and off Has been referred for GI evaluation for possible endoscopy 02/15/2024. Patient was unable to come into the office today. This is a tele visit. Recently blood pressure elevated Amlodipine was increased by PCP from 5 mg to 10 mg. Subsequently he developed diarrhea and therefore he was cut back to 5 mg. Continues her shortness of breath on exertion. The recent imaging studies showed pleural effusion. He is waiting for a CT scan of the chest Ultrasound of the kidneys were done but results are not reported yet -it has been almost 4 weeks since the imaging. 03/13/2024. Continues have GI discomfort including belching. Amlodipine was increased along with torsemide but is back down to the usual dose of 5 mg amlodipine q.d. and 20 mg torsemide. He has been a gradual increase serum creatinine. 04/11/24 ; HOme BP is better;A1C is 5.7 05/15/24 DEveloped EDema Took extra diuretics and reoslved Had upper back pain and went to ER [facility] Medical History Gas bloat syndrome Herniated disc, cervical Back disorder Arthritis Cardiomyopathy High blood pressure Edema Pneumothorax Surgical History [place] teeth extracted Family History Mother Cancer Father Cancer Social History Household Members: Friend(s) Housing: House Are you a primary acute care physician to a significant other at home: No Do you presently have visiting nurse or other home services: No 75 years or older and lives alone: No Alcohol intake: never Patient Tobacco Use Status: Never used Tobacco e-Cigarette/Vaping Use: Never Used Advance Directives Date on File: 08/18/23 service: No Current occupational status: unemployed Current occupational exposures/hazards: No Gender identity: Male Cognitive needs: No Hearing needs: No Vision needs: Yes Physical Exam Vital Signs: Last Vital Signs Pulse 80 05/15/24 15:45 BP 168/80 H 05/15/24 15:45 Pulse Ox 95 05/15/24 15:45 Oxygen Delivery Method Room Air 05/15/24 15:45 BMI result Body Mass Index 24.1 Comfortable Neck supple no JVD. Lungs entry equal no rales. Heart S1-S2 heard no gallop or rub. Abdomen soft nontender. Neuro alert awake oriented. No asterixis. Extremities no edema. Results Reviewed Nephrology Results: Hgb 9.1 g/dl (14.0-18.0) L 05/12/24 WBC 4.9 X10*3/uL (4.8-10.8) 05/12/24 Plt Count 197 X10*3/uL (160-400) 05/12/24 Sodium 136 mmol/L (135-145) 05/10/24 Potassium 4.7 mmol/L (3.3-5.1) 05/10/24 Chloride 111 mmol/L (96-108) H 05/10/24 Carbon Dioxide 20 mmol/L (22-29) L 05/10/24 BUN 73 mg/dL (9-16) H 05/10/24 Creatinine 3.30 mg/dL (0.5-1.4) H 05/10/24 Calcium 8.2 mg/dL (8.4-10.2) L 05/10/24 Phosphorus 4.7 mg/dL (2.7-4.5) H 03/17/24 PTH Intact 26.4 pg/mL (8.7-77.1) 03/17/24 Urine Protein 300 (3+) mg/dL (Neg-Trace) H 03/17/24 Assessment & Plan Assessment & Plan (1) High blood pressure: Code(s): I10 - Essential (primary) hypertension Category: Medical Qualifiers: Hypertension type: secondary to endocrine disorders Qualified Code(s): I15.2 - Hypertension secondary to endocrine disorders Plan: Blood?pressure?is?better controlled Goal?is?less?than?130/80 Agree with increasing Carvedilol.?? Continue?hydralazine?and?amlodipine?as?prescribed (2) CHF (congestive heart failure): Code(s): I50.9 - Heart failure, unspecified Category: Medical Qualifiers: Heart failure type: combined systolic and diastolic Heart failure chronicity: chronic Qualified Code(s): I50.42 - Chronic combined systolic (congestive) and diastolic (congestive) heart failure Plan: BNP?continues?to?decline Pleural?effusion?has?not?enlarged. Continue torsemide Will?continue?to?monitor (3) Diabetes mellitus type 2 with complications: Code(s): E11.8 - Type 2 diabetes mellitus with unspecified complications Category: Medical Plan: A1c?5.7%.??Good?control.??Goal?is?less?than?7% Continue?current?medication?regimen (4) CKD (chronic kidney disease) stage 3, GFR 30-59 ml/min: Code(s): N18.30 - Chronic kidney disease, stage 3 unspecified Category: Medical Qualifiers: Chronic kidney disease stage 3 subtype: stage 3b (GFR 30-44) Qualified Code(s): N18.32 - Chronic kidney disease, stage 3b (5) Anemia: Code(s): D64.9 - Anemia, unspecified Category: Medical (6) CKD (chronic kidney disease) stage 4, GFR 15-29 ml/min: Code(s): N18.4 - Chronic kidney disease, stage 4 (severe) Category: Medical Plan . Mega has CKD 3 with a baseline creatinine around 2.0-2.2 mg/dL. He has nephrotic range proteinuria in the setting of longstanding diabetes mellitus. Probably has underlying diabetic nephropathy. Serologies are unremarkable. Nondiabetic causes seem unlikely however there has been no significant improvement renal function and EGFR is gradually drifting down words. Will hold off on biopsy for now and watch maintain blood pressure less than 130/80 and A1c less than 7%. He would benefit from SGLT -2 inhibitors Continue to avoid nephrotoxic agents including NSAIDs. Anemia- most likely due to EPO deficiency Follow-up with LAst dose was last week s/p Epistaxis- resolved Hyperparathyroidism/Hyperphosphatemia Calcium acetate 1 tab with largest meal( dinner) and stay on low Phos diet- No cola drinks. Minimize nuts/meat Phos down from 5.8 to 4.7 Check serum phosphorus as needed Referred to dialysis education program Orders: Orders Electrolytes 6 Weeks N18.4 - Chronic kidney disease, stage 4 (severe) Creatinine 6 Weeks N18.4 - Chronic kidney disease, stage 4 (severe) Phosphorus 6 Weeks N18.4 - Chronic kidney disease, stage 4 (severe) Blood Urea Nitrogen 6 Weeks N18.4 - Chronic kidney disease, stage 4 (severe) Coding Level of Care Code Est Pt Level 4 (01292) Diagnoses Hypertension due to endocrine disorder I15.2 Hypertension type: secondary to endocrine disorders Chronic combined systolic and diastolic congestive heart failure I50.42 Heart failure type: combined systolic and diastolic Heart failure chronicity: chronic Diabetes mellitus type 2 with complications E11.8 Stage 3b chronic kidney disease N18.32 Chronic kidney disease stage 3 subtype: stage 3b (GFR 30-44) Anemia D64.9 CKD (chronic kidney disease) stage 4, GFR 15-29 ml/min N18.4
[2024-05-15 16:00] VITALS: BP 150/70
--- OUTSIDE RECORDS SUMMARY | 2024-05-15 18:59 | XMS_ITS | Data Portability ---
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 Plan of Treatment Reminders Order Date Submit Date Provider Last Modified By Organization Details Last Modified Time Details Appointments Test Results 30 2024 08:30A M ROYER Zavala MD Not available Not available Not available Lab None recorded. Referral None recorded. Procedures None recorded. Surgeries laryngosc opy, direct, with injection into vocal cord(s), therapeut ic; with operating microscpe or telescope (SURG) 2023 024 [email or web address] Not available 09/22/2023 14:43:22 Imaging None recorded. Medication Orders None recorded. Patient TargetsNo targets recorded. Patient InstructionsNo instructions recorded. Reason for Referral None Reported. 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 ROYER ROSADO MD [address] [place] [address], [place], [address] , [place] - [facility] 4 13:10:22 Chronic hoarsenes s 53656645499 05 Active 2023 ROYER ROSADO MD [address] [place] [address], [place], [address] , [place] [facility] 4 13:10:28 Dyspnea 576093469 Active 2023 Other forms of dyspnea; Note: Date Diagnosed : 07/15/2023 1:10 PM (R06.09) Not Available [facility] 08/02/202 4 03:28:28 Paralysis of larynx 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 Procedures Surgical History Date Name Laterality Status Provider Name and Address Organization Details Recorded Time 09/22/2023 FFL_RE completed ROYER ROSADO MD [address] [place] [address], [phone], [place] - [facility] 09/22/2023 13:15:29 Imaging Results None recorded. [...] Ultra-Fine Mini Pen Needle 31 gauge x 3/16 USE 1 STRIP TO TEST BLOOD GLUCOSE [...] Updated DateTime 09/22/2023 182.88 cm 24.1 kg/m2 87647.44 g 128 mm[Hg] 78 mm[Hg] Derian Lim [place] - [facility] 12:35:21 Social History None recorded. Functional Status None recorded. Mental Status None recorded. Family History Nothing Reported. Medical History No medical history recorded. Past Encounters Encounter ID Performer Location Encounter Start Date Encounter Closed Date Diagnosis/Indication Diagnosis SNOMED-CT Code Diagnosis ICD10 Code Diagnosis Note [id number] ROYER ROSADO MD [facility] [address] [place] [address] 09/22/2023 11:37:32 09/23/2023 16:17:01 Paralysis of left vocal cord [id number] J38.01 On exam he has a left vocal cord paralysis. It's unclear what the cause was but he had a very complicate d medical admission in June when it started. The patient is indicated for and a good candidate for direct laryngosco py with {{LEFT* RI GHT}} injection laryngopla sty. I discussed the risks, benefits, and alternativ es to direct laryngosco py and bronchosco py in the operating room. Specifical ly I discussed the risk of damaging the structures we are working on or around including for direct laryngosco py damaging the lips, teeth, gums, tongue, palate, oropharynx , larynx and trachea. I discussed if biopsy of the vocal cords is performed that there is a risk of temporary or permanent hoarseness and voice change. The patient understand s the risks and would like to proceed. We will schedule surgery mutually convenient time. I also discussed the risks of injection laryngopla sty including airway compromise necessitat ing reintubati on, observatio n in the hospital, or additional procedures . I discussed the risk of swallowing problems after surgery. I discussed that the material injected is synthetic and is temporary and that benefit will likely decline over time. I discussed variable voice and swallowing outcomes with the procedure. he will need cardiac clearance and may be too high risk. Chronic hoarseness [id number] R49.0 Health Concerns Section Related Observation LastModified by Organization Detai ls LastModified Time None Recorded Concern Status LastModified by Organization Details LastModified Time None Recorded Advance Directives Directive None Recorded Payers Encounter Date Sequence Insurance Name Policy Number Policy Chakraborty Covered Member ID Chakraborty Member ID Guarantor Name 09/22/2023 1 [facility] - HEALTH NET PLAN (MEDICAID HMO) [facility] [employer] O[employer]a [id number] [employer] Notes Date Note Type Note Provider Name and Address Organization Details Recorded Time 09/22/2023 text/html Hx of cardiomyopathy. Was hospitalized at [facility] in June. 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 He had pneumothorax and [place] Florent[place] catheter and a very complicated course. He can eat and drink but occasionally chokes on thin liquids. Does not smoke. Voice has remained hoarse. ROYER ROSADO MD [address] [place] [address], [place], [phone], [facility] - [facility] 09/22/2023 13:19:45
== END 2024-05-15 16:04 | disposition home or self-care (01) ==
PROVIDERS: PCP Family Medicine; Visit Provider Internal Medicine Hypertension Specialist
DX: I15.2 Hypertension secondary to endocrine disorders (principal); I50.42 Chronic combined systolic (congestive) and diastolic (congestive) heart failure; E11.8 Type 2 diabetes mellitus with unspecified complications; N18.32 Chronic kidney disease, stage 3b; D64.9 Anemia, unspecified; N18.4 Chronic kidney disease, stage 4 (severe)
CPT/HCPCS: 99214

== ENCOUNTER → 2024-05-15 15:44 | Outpatient (BNVA) | payer OTHER, SELFPAY | PROVIDERS: PCP Family Medicine; Visit Provider Internal Medicine Hypertension Specialist | DX: E11.22 Type 2 diabetes mellitus with diabetic chronic kidney disease (principal); N18.4 Chronic kidney disease, stage 4 (severe); I50.42 Chronic combined systolic (congestive) and diastolic (congestive) heart failure; E11.8 Type 2 diabetes mellitus with unspecified complications; D64.9 Anemia, unspecified; I15.2 Hypertension secondary to endocrine disorders | CPT/HCPCS: 99212 ==